=== PATIENT | female | born 1990 | race Two or more races ===

== ENCOUNTER 2017-12-04 08:00 | Outpatient (CLI) | payer MEDICAID ==
[2017-12-04 12:51] LABS: BASOPHILS % (AUTO) 0.7 %; EOSINOPHILS # (AUTO) 0.3 10^3/uL (0.0-0.7); HGB - HEMOGLOBIN 13.1 g/dL (12.0-16.0); LYMPHOCYTES # (AUTO) 2.5 10^3/uL (1.5-3.5); LYMPHOCYTES % (AUTO) 38.4 %; MEAN CORPUSCULAR HEMOGLOBIN 28.6 pg (27.0-31.0); MEAN CORPUSCULAR HGB CONC 33.5 g/dL (32.0-36.0); MEAN CORPUSCULAR VOLUME 85.6 fL (81.0-99.0); MEAN PLATELET VOLUME 8.6 fL (7.9-10.8); MONOCYTES # (AUTO) 0.4 10^3/uL (0.0-1.0); MONOCYTES % (AUTO) 6.9 %; NEUTROPHILS # (AUTO) 3.2 10^3/uL (1.5-6.6); PLT - PLATELET COUNT 298 10^3/uL (130-450); RED BLOOD COUNT 4.57 10^6/uL (4.20-5.40); RED CELL DISTRIBUTION WIDTH 14.2 % (12.0-15.0); WHITE BLOOD COUNT 6.5 x10^3/uL (4.8-10.8)
[2017-12-04 13:11] LABS: HCG,QUALITATIVE BLOOD NEGATIVE
[2017-12-04 14:12] LABS: ALBUMIN 4.5 g/dL (3.2-5.5); ALBUMIN/GLOBULIN RATIO 1.4 (1.0-2.2); ALKALINE PHOSPHATASE 49 IU/L (42-121); ALT ALANINE AMINOTRANSFERASE 19 IU/L (10-60); AST ASPARTATE AMINOTRANSFERASE 17 IU/L (10-42); BILIRUBIN,TOTAL 0.9 mg/dL (0.2-1.0); BUN - BLOOD UREA NITROGEN 10 mg/dL (6-20); CALCIUM 8.8 mg/dL (8.5-10.3); CARBON DIOXIDE - CO2 28 mmol/L (21-32); CHLORIDE 106 mmol/L (101-111); CHOL/HDL RATIO 1.8 (<4.4); CHOLESTEROL 107 mg/dL; CREATININE 0.7 mg/dL (0.4-1.0); GFR - MDRD 101 (>89); GLUCOSE 85 mg/dL (70-100); HDL CHOLESTEROL 58 mg/dL; LDL CHOLESTEROL,CALCULATED 39 mg/dL; LDL/HDL RATIO 0.7 (<4.4); SODIUM 136 mmol/L (135-145); TOTAL PROTEIN 7.8 g/dL (6.7-8.2); VLDL CHOLESTEROL 10 mg/dL
== END 2017-12-04 08:01 | disposition home or self-care (01) ==
LOC: LAB.N 08:00
PROVIDERS: ATTEND Nurse Practitioner Gerontology
DX: Z13.9 Encounter for screening, unspecified (principal); Z30.9 Encounter for contraceptive management, unspecified
CPT/HCPCS: 36415; 80053; 80061; 84443; 84703; 85025

== ENCOUNTER 2018-02-24 10:38 | Emergency (ER) | payer MEDICAID ==
[2018-02-24 11:05] VITALS: BP 140/92
[2018-02-24 11:30] LABS: BILIRUBIN,URINE NEGATIVE (NEGATIVE); GLUCOSE, URINE (UA) NEGATIVE (NEGATIVE); KETONES,URINE (UA) NEGATIVE (NEGATIVE); LEUKOCYTE ESTERASE, URINE TRACE (NEGATIVE); NITRITE,URINE NEGATIVE (NEGATIVE); OCCULT BLOOD,URINE LARGE (NEGATIVE); PH,URINE 6.5 PH (5.0-7.5); PROTEIN,URINE NEGATIVE (NEGATIVE); UROBILINOGEN,URINE 0.2 (NORMAL) E.U./dL (NORMAL)
[2018-02-24 11:31] LABS: CLARITY,URINE HAZY (CLEAR)
[2018-02-24 11:45] LABS: BACTERIA,URINE Moderate /HPF (None Seen); SQUAMOUS EPITHELIAL CELL,UR MOD Squamous (<= Few)
--- NOTE | 2018-02-24 11:47 | ED Physician Documentation ---
History of Present Illness - Stated complaint Stated Complaint: FEMALE - Chief complaint Chief Complaint: UTI - Additonal information Additional information: hx from pt dysuria today no fever no abd pain no NVD no vag bleed no dc no flank pain denies preg Review of Systems Constitutional: denies: Fever GI: denies: Abdominal Pain, Nausea, Vomiting : reports: Dysuria. denies: Discharge, Vaginal bleeding, Now EGA Musculoskeletal: denies: Back pain PD PAST MEDICAL HISTORY - Past Medical History Cardiovascular: None Respiratory: None Neuro: None Endocrine/Autoimmune: None GI: None PSYCHOLOGY ASSISTANT: None : None HEENT: None Psych: None Musculoskeletal: None Derm: None - Past Surgical History Past Surgical History: No - Present Medications Home Medications: Ambulatory Orders Medication Instructions Recorded Confirmed HYDROcod/ACETAM 5/325 [Vicodin 1 - 2 ea PO Q6H PRN #15 tablet 08/15/15 5/325] Ondansetron HCl [Zofran] 4 mg PO Q6HR PRN #14 tablet 08/15/15 Nitrofurantoin [Macrobid] 100 mg PO BID #10 capsule 02/24/18 Phenazopyridine [Pyridium] 100 mg PO Q8H PRN #9 tablet 02/24/18 - Allergies Allergies/Adverse Reactions: Allergies Allergy/AdvReac Type Severity Reaction Status Date / Time No Known Drug Allergies Allergy Verified 08/15/15 06:03 - Social History Does the pt smoke?: No Smoking Status: Never smoker Does the pt drink ETOH?: No Does the pt have substance abuse?: No - Immunizations Immunizations are current?: Yes - POLST Patient has POLST: No PD ED PE NORMAL - Vitals Vital signs reviewed: Yes - HEENT HEENT: Atraumatic - Neck Neck: Supple, no meningeal sign - Cardiac Cardiac: RRR - Respiratory Respiratory: No respiratory distress, Clear bilaterally - Abdomen Abdomen: Soft, Non tender - Back Back: No CVA TTP - Derm Derm: Normal color Results - Vitals Vitals: Vital Signs - 24 hr 02/24/18 11:00 Temperature 36.6 C Heart Rate 79 Respiratory 18 Rate Blood Pressure 140/92 H O2 Saturation 98 Oxygen O2 Source Room air - Labs Labs: Laboratory Tests 02/24/18 11:19 Urine Color YELLOW Urine Clarity HAZY Urine pH 6.5 Ur Specific [place] 1.025 Urine Protein NEGATIVE Urine Glucose (UA) NEGATIVE Urine Ketones NEGATIVE Urine Occult Blood LARGE H Urine Nitrite NEGATIVE Urine Bilirubin NEGATIVE Urine Urobilinogen 0.2 (NORMAL) Ur Leukocyte Esterase TRACE H Urine RBC 6-10 H Urine WBC 11-25 H Ur Squamous Epith Cells MOD Squamous H Urine Bacteria Moderate H Urine Culture Comments NOT INDICATED PD MEDICAL DECISION MAKING - ED course ED course: urine not a good clean catch but pt with classic sx no flank pain to suggest kidney stone with infection Departure - Departure Disposition: 01 Home, Self Care Clinical Impression: Urinary tract infection Qualifiers: Urinary tract infection type: acute cystitis Hematuria presence: with hematuria Qualified Code(s): N30.01 - Acute cystitis with hematuria Condition: Good Instructions: ED UTI Cystitis Female Follow-Up: Alka Ahn MD [Primary Care Provider] - (for a repeat urine test after completing antibiotics to be sure blood and infection have cleared) Prescriptions: Nitrofurantoin [Macrobid] 100 mg PO BID #10 capsule Phenazopyridine [Pyridium] 100 mg PO Q8H PRN #9 tablet PRN Reason: painful urination
== END 2018-02-24 12:37 | disposition home or self-care (01) ==
LOC: ED 10:38
DX: N30.01 Acute cystitis with hematuria (principal)
CPT/HCPCS: 81001; 87086; 99283

== ENCOUNTER 2019-04-24 16:13 | Inpatient (IN) | payer MEDICAID ==
--- NOTE | 2019-04-24 16:46 | ED Physician Documentation ---
PD HPI ABD PAIN - Stated complaint Stated Complaint: STOMACH PX, DIZZY - Chief complaint Chief Complaint: Abd Pain - History obtained from History obtained from: Patient - History of Present Illness Timing - onset: How many days ago (2) Timing - duration: Days (2) Timing - details: Abrupt onset Severity Comments: Patient could not rate on a scale of 1-10 Location: Periumbilical, RLQ Radiation: Left flank, Right flank. No: Lower back Improved by: No: Meds Associated symptoms: Fever (102.8 Friday 1AM), Nausea, Vomiting (Last emesis here in the department), Diarrhea. No: Hematochezia, Dysuria, Hematuria, Chest pain Similar symptoms before: Has not had sx before Recently seen: Not recently seen - Additional information Additional information: Is a 28-year-old woman who ate out on 2 nights ago and then became ill. She had a fever up to 102.8 that night and thought that she had food poisoning so she started taking some leftover Augmentin. She is been around anybody who is been sick. She is been getting intense periumbilical pain that woke crescendoed to a point that it is almost intolerable last for about a minute and then go away for about 5 to 10 minutes. It is radiating to her back bilaterally. She had some urinary frequency but has been drinking a lot of water. She tried taking ibuprofen for the pain without relief and took some nausea medicine that she had had prescribed in the past that did not help either. She has been vomiting for the past 2 days and unable to keep anything down. She is also had watery diarrhea without blood or mucus in it. She has had chills and fever up to 102.8 degrees. She denies use of alcohol. Patient has an IUD in it denies . Review of Systems Constitutional: reports: Fever, Chills Cardiac: denies: Chest pain / pressure, Palpitations Respiratory: denies: Dyspnea, Cough GI: reports: Abdominal Pain, Abdominal Swelling (Feels bloated), Nausea, Vomiting, Diarrhea. denies: Hematemesis, Bloody / black stool : reports: Irregular menses, Other (Has IUD). denies: Dysuria, Frequency Musculoskeletal: reports: Back pain (The flank bilaterally) Neurologic: denies: Syncope, LOC PD PAST MEDICAL HISTORY - Past Medical History Cardiovascular: None Respiratory: Asthma Endocrine/Autoimmune: None GI: None DOT COMPLIANCE MANAGER: None : None HEENT: None Psych: None Musculoskeletal: None Derm: None Other Past Medical History: DENIES OTHER - Past Surgical History Past Surgical History: Yes General: Cholecystectomy /DOT COMPLIANCE MANAGER: section - Present Medications Home Medications: Ambulatory Orders Medication Instructions Recorded Confirmed HYDROcod/ACETAM 5/325 [Vicodin 1 - 2 ea PO Q6H PRN #15 tablet 08/15/15 5/325] Ondansetron HCl [Zofran] 4 mg PO Q6HR PRN #14 tablet 08/15/15 Nitrofurantoin [Macrobid] 100 mg PO BID #10 capsule 02/24/18 Phenazopyridine [Pyridium] 100 mg PO Q8H PRN #9 tablet 02/24/18 - Allergies Allergies/Adverse Reactions: Allergies Allergy/AdvReac Type Severity Reaction Status Date / Time No Known Drug Allergies Allergy Verified 08/15/15 06:03 - Social History Does the pt smoke?: No Smoking Status: Never smoker Does the pt drink ETOH?: No Does the pt have substance abuse?: No - Immunizations Immunizations are current?: Yes - POLST Patient has POLST: No PD ED PE NORMAL - Vitals Vital signs reviewed: Yes - General General: Alert and oriented X 3, Well developed/nourished, Other (Patient appears uncomfortable. She keeps breathing very slow and closing her eyes concentrating on trying to get rid of the pain.) - HEENT HEENT: Atraumatic, Other (Mucous membranes are dry.) - Neck Neck: Supple, no meningeal sign, No adenopathy - Cardiac Cardiac: RRR, No murmur - Respiratory Respiratory: No respiratory distress - Abdomen Abdomen: Normal bowel sounds, Other (Diffusely tender with guarding in the right lower quadrant and in the periumbilical region. No palpable hernia.) - Female Female : Deferred - Back Back: No CVA TTP - Derm Derm: Normal color, Warm and dry, No rash - Extremities Extremities: No edema - Neuro Neuro: Alert and oriented X 3, ophthalmic surgical assistant 2-12 intact, No motor deficit, No sensory deficit, Normal speech - Psych Psych: Normal mood, Normal affect Results - Vitals Vitals: Vital Signs - 24 hr 04/24/19 04/24/19 04/24/19 16:25 17:45 18:46 Temperature 38.1 C H 37.9 C H Heart Rate 102 H 95 97 Respiratory 16 16 16 Rate Blood Pressure 123/87 H 105/75 112/74 O2 Saturation 98 100 98 04/24/19 19:11 Temperature 37.5 C Heart Rate 93 Respiratory 22 Rate Blood Pressure 108/69 O2 Saturation 97 Oxygen O2 Source Room air - Labs Labs: Laboratory Tests 04/24/19 04/24/19 04/24/19 16:30 17:00 17:00 WBC 5.9 RBC 4.60 Hgb 13.7 Hct 40.3 MCV 87.6 MCH 29.7 MCHC 33.9 RDW 13.1 Plt Count 277 MPV 8.0 Neut # (Auto) 4.7 Lymph # (Auto) 1.0 L Hard[place] # (Auto) 0.3 Eos # (Auto) 0.0 Baso # (Auto) 0.0 Absolute Nucleated RBC 0.00 Nucleated RBC % 0.1 Sodium 137 Potassium 3.4 L Chloride 102 Carbon Dioxide 22 Anion Gap 13.0 BUN 7 Creatinine 0.8 Estimated GFR (MDRD) 86 L Glucose 96 Calcium 7.9 L Total Bilirubin 0.8 AST 27 ALT 22 Alkaline Phosphatase 32 L Total Protein 7.1 Albumin 4.0 Globulin 3.1 Albumin/Globulin Ratio 1.3 Lipase 27 Urine Color YELLOW Urine Clarity CLEAR Urine pH 6.0 Ur Specific [place] 1.010 Urine Protein NEGATIVE Urine Glucose (UA) NEGATIVE Urine Ketones NEGATIVE Urine Occult Blood NEGATIVE Urine Nitrite NEGATIVE Urine Bilirubin NEGATIVE Urine Urobilinogen 1 (NORMAL) Ur Leukocyte Esterase NEGATIVE Ur Microscopic Review NOT INDICATED Urine Culture Comments NOT INDICATED Urine HCG, Qual NEGATIVE - Rads (name of study) abd CT Radiology: See rad report (No evidence of surgical abdomen or appendicitis.) PD MEDICAL DECISION MAKING - ED course Complexity details: re-evaluated patient, d/w patient, d/w family, d/w acquisition consultant ED course: Patient required 2 mg of Dilaudid and 4 of Zofran still complaining that she had 3 out of 10 pain and was having discomfort in the right lower quadrant. Her CT is not impressive. She has a normal white blood cell count. No evidence of a urinary tract infection. Discussed with the hospitalist and she has agreed to accept the patient for overnight observation for the fever and abdominal pain. The patient is in agreement with the plan. Departure - Departure Disposition: ED Place in Observation Clinical Impression: Fever Qualifiers: Fever type: unspecified Qualified Code(s): R50.9 - Fever, unspecified Abdominal pain Qualifiers: Abdominal location: right lower quadrant Qualified Code(s): R10.31 - Right lower quadrant pain Discharge Date/Time: 04/24/19 20:45
[2019-04-24] MEDS ORDERED: ONDANSETRON 4 MG/2 ML VIAL IVP STA (17:01)
[2019-04-24] MEDS ORDERED: SODIUM CHLORIDE 0.9% 1,000 ML IV ONE (17:01)
[2019-04-24] MEDS ORDERED: HYDROmorphone 1 MG/ML CARPUJECT IVP STA ×2 (17:01→18:39)
[2019-04-24 17:30] LABS: BILIRUBIN,URINE NEGATIVE (NEGATIVE); GLUCOSE, URINE (UA) NEGATIVE (NEGATIVE); KETONES,URINE (UA) NEGATIVE (NEGATIVE); LEUKOCYTE ESTERASE, URINE NEGATIVE (NEGATIVE); NITRITE,URINE NEGATIVE (NEGATIVE); OCCULT BLOOD,URINE NEGATIVE (NEGATIVE); PROTEIN,URINE NEGATIVE (NEGATIVE); UROBILINOGEN,URINE 1 (NORMAL) E.U./dL (NORMAL)
[2019-04-24 17:30] LABS: BASOPHILS % (AUTO) 0.3 %; EOSINOPHILS % (AUTO) 0.4 %; HGB - HEMOGLOBIN 13.7 g/dL (12.0-16.0); LYMPHOCYTES % (AUTO) 16.5 %; MEAN CORPUSCULAR HEMOGLOBIN 29.7 pg (27.0-31.0); MEAN CORPUSCULAR HGB CONC 33.9 g/dL (32.0-36.0); MEAN CORPUSCULAR VOLUME 87.6 fL (81.0-99.0); MONOCYTES # (AUTO) 0.3 10^3/uL (0.0-1.0); MONOCYTES % (AUTO) 4.4 %; NEUTROPHILS # (AUTO) 4.7 10^3/uL (1.5-6.6); NEUTROPHILS % (AUTO) 78.4 %; PLT - PLATELET COUNT 277 10^3/uL (130-450); RED CELL DISTRIBUTION WIDTH 13.1 % (12.0-15.0); WHITE BLOOD COUNT 5.9 x10^3/uL (4.8-10.8)
[2019-04-24 17:31] LABS: CLARITY,URINE CLEAR (CLEAR)
[2019-04-24 17:33] LABS: HCG UR QUAL NEGATIVE
[2019-04-24 17:41] LABS: ALBUMIN/GLOBULIN RATIO 1.3 (1.0-2.2); BILIRUBIN,TOTAL 0.8 mg/dL (0.2-1.0); CALCIUM 7.9 mg/dL (8.5-10.3); CREATININE 0.8 mg/dL (0.4-1.0); TOTAL PROTEIN 7.1 g/dL (6.7-8.2)
[2019-04-24] MEDS ORDERED: IOVERSOL 320 100 ML VIAL IVP ONE (17:51)
--- NOTE | 2019-04-24 18:53 | CT Report ---
Reason: Periumbilical pain with fever Procedure Date: 04/24/2019 Accession Number: [id number] / [id number] Procedure: CT - Abdomen/Pelvis W CPT Code: FULL RESULT: EXAM: CT ABDOMEN AND PELVIS EXAM DATE: 04/24/2019 06:14 PM. CLINICAL HISTORY: Periumbilical pain with fever. COMPARISONS: None. TECHNIQUE: Routine helical CT imaging was performed through the abdomen and pelvis. IV contrast: 90 cc Optiray 320. Enteric contrast: No. Reconstructions: Coronal and sagittal. In accordance with CT protocol optimization, one or more of the following dose reduction techniques were utilized for this exam: automated exposure control, adjustment of mA and/or KV based on patient size, or use of iterative reconstructive technique. FINDINGS: ABDOMEN: Lung Bases: Incompletely included lower lungs are grossly clear. Heart size is within normal limits. No basilar effusions. Liver: Unremarkable. Spleen: Unremarkable. Pancreas: Unremarkable. Gallbladder/Bile Ducts: Status post cholecystectomy. Biliary tree is normal caliber. Adrenal Glands: Unremarkable. Kidneys: No mass, calculi, or hydronephrosis. Peritoneum/Mesentery/Bowel: No free fluid, free air, or collection. No intestinal obstruction or inflammation. The appendix is within normal limits. Lymph nodes: No mesenteric, periportal, or retroperitoneal lymphadenopathy. Vasculature: Abdominal aorta is nonaneurysmal. Portal vein is patent. Hepatic veins are patent. PELVIS: The bladder is unremarkable for the degree of distention. IUD present within the uterus. No obvious abnormally enlarged adnexal abnormalities. No pelvic lymphadenopathy. Bones: No suspicious osseous lesions. IMPRESSION: No acute abnormalities. Normal appendix. [facility]
[2019-04-24] MEDS ORDERED: oxyCODONE 5 MG TABLET PO PRN (20:08)
[2019-04-24] MEDS ORDERED: ONDANSETRON ODT 4 MG TABLET TL PRN (20:08)
[2019-04-24] MEDS ORDERED: ONDANSETRON 4 MG/2 ML VIAL IVP PRN (20:08)
[2019-04-24] MEDS ORDERED: PROCHLORPERAZINE 10 MG/2 ML VIAL IVP PRN (20:08)
--- NOTE | 2019-04-24 20:17 | HISTORY & PHYSICAL EXAMINATION ---
History of Present Illness - Admitted From Admitted From:: ER/Home - History Obtained From Records Reviewed: [facility] History obtained from: patient, , ER MD Exam Limitations: pain and her nausea from IV opiates - History of Present Illness HPI Comment/Other: Morbidly obese female who regards herself as healthy and started having abdominal pain 2 days ago. It was sudden in onset, located between the umbilicus and the right lower quadrant. She describes it as a sensation of a short tube that is stabbing from the inside deep in her belly. She demonstrates by using her thumb and index finger to show me the length of the tube and its about 7 cm long. Pain is present only when you palpate. It is made worse by moving, she prefers to just lay on her back and be still. She has no appetite. When she tries to have flatulence or a bowel movement the pain in this area already described becomes intensely worse. It is waxing and waning. She has been having loose stools. No blood in the stool. She is started vomiting with it yesterday. And started having fevers in the middle of the night on Friday night. She denies any blood in urine, urgency, frequency. She is never had any abdominal surgery. She has had no recent travel, and none of her children are sick. While in the emergency room she received IV fluids as well as Dilaudid. She says that Dilaudid is terrible. It may take with her pain but it makes her so lightheaded, so confused, she can even remember how many brothers and sister she has. She would prefer not to get any opiates. Especially IV opiates. In the emergency room she was evaluated by Dr. Gonzaels. Temperature was 38 1 pulse was 102 blood pressure 123/87 and she was saturating normally on room air. Physical exam was positive for the right lower quadrant and periumbilical pain with deep palpation. She has bowel sounds. CT the abdomen is completely normal, white cell count is normal. Urinalysis is pristine. Urine test is negative. She is now brought in for observation. In the emergency room she is been able to keep ice chips down, and is trying to eat a cracker before she goes to [facility]. History - Past Medical History Cardiovascular: reports: None Respiratory: reports: Asthma Neuro: reports: Headaches (CT of head negative in 2015, here.) Endocrine/Autoimmune: reports: None GI: reports: None LATHER APPRENTICE: reports: Other () : reports: None HEENT: reports: None Psych: reports: None Musculoskeletal: reports: Other (Osteomyelitis/Ed[place] Abcess 2002 in [place]. Distal tibia ) Derm: reports: None MRSA Hx?: No - Past Surgical History General: reports: Cholecystectomy /LATHER APPRENTICE: reports: section - Family & Social History Family History Comment/Other: Father at age 50 of an MA. Mom is healthy in her early 60s. 3 sisters and one brother have mental illness, depression and anxiety. But no blood pressure, cancer, heart attack, stroke, diabetes or thyroid disease. Her 2 children are healthy at 2 years and 6 years. She is still breast-feeding the 2-year-old Living arrangement: At home Living Situation: With spouse/s.o., With family Social History Notes: She is from [place]. 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 She tried smoking once when she was very young and hated it. Same for sipping alcohol. So she does not drink or smoke. She moved to the [place] with her because his family comes from here and they have been here for a few years now. There is no history of recreational substance abuse. - Substance History Use: Uses substance without health or social issues: NONE Abuse: Recurrent use of substance despite neg consequences: NONE Dependence: Experiences withdrawal or developed tolerances: NONE - POLST Patient has POLST: No POLST Status: Full Code Meds/Allgy - Home Medications Home Medications: Ambulatory Orders Medication Instructions Recorded Confirmed HYDROcod/ACETAM 5/325 [Vicodin 1 - 2 ea PO Q6H PRN #15 tablet 08/15/15 5/325] Ondansetron HCl [Zofran] 4 mg PO Q6HR PRN #14 tablet 08/15/15 Nitrofurantoin [Macrobid] 100 mg PO BID #10 capsule 02/24/18 Phenazopyridine [Pyridium] 100 mg PO Q8H PRN #9 tablet 02/24/18 - Allergies Allergies/Adverse Reactions: Allergies Allergy/AdvReac Type Severity Reaction Status Date / Time No Known Drug Allergies Allergy Verified 08/15/15 06:03 Review of Systems - Constitutional Constitutional: reports: Fatigue, Fever, Chills, Malaise, Weakness, Poor appetite - Eyes Eyes: denies: Pain, Irritation, Amaurosis, Blurred vision, Spots in vision, Field loss - Ears, Nose & Throat Ears, Nose & Throat: denies: Ear pain, Hearing aids, Tinnitus, Vertigo, Postnasal drainage, Sore throat, Hoarseness - Cardiovascular Cariovascular: reports: Lightheadedness. denies: Irregular heart rate, Palpitations, Chest pain, Edema, Syncope, Exertional dyspnea, Decr. exercise tolerance - Respiratory Respiratory: denies: Cough, Sputum production, Wheezing, Snoring, Orthopnea, SOB at rest, SOB with exertion - Gastrointestinal Gastrointestinal: reports: Abdominal pain, Constipation, Diarrhea, Nausea, Vomiting, Poor appetite. denies: Rectal bleeding, Bile emesis, Ehsan blood emesis, Coffee grounds emesis, Reflux/heartburn, Bloating - Genitourinary Genitourinary: reports: Flank pain. denies: Dysuria, Frequency, Urgency, Hematuria, Incontinence, Nocturia, Urethral discharge - Musculoskeletal Musculoskeletal: denies: Muscle pain, Back pain, Muscle aches, Stiffness, Muscle weakness, Gout, Joint pain - Integumentary Integumentary: denies: Rash, Pruritis, Lesions, Dryness - Neurological Neurological: reports: Dizziness. denies: General weakness, Focal weakness, Headache, Numbness, Memory problems, Pre-existing deficit, Abnormal gait - Psychiatric Psychiatric: denies: Depression, Anxiety, Suicidal, Delusions - Endocrine Endocrine: denies: Polyuria, Polydypsia, Polyphagia, Intolerance to cold - Hematologic/Lymphatic Hematologic/Lymphatic: denies: Anemia, Bruising, Petechiae Prior Level of Functionality: Independent with activities of daily living. 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 There are no limitations to mobility or cardiovascular endurance. She does not use any durable medical equipment. Exam - Vital Signs Vital Signs: Vital Signs x48h Temp Pulse Resp BP Pulse Ox 04/24/19 19:11 37.5 C 93 22 108/69 97 04/24/19 18:46 97 16 112/74 98 04/24/19 17:45 37.9 C H 95 16 105/75 100 04/24/19 16:25 38.1 C H 102 H 16 123/87 H 98 - Physical Exam General Appearance: positive: Moderate distress (From the Dilaudid. Her head is spinning, the Dilaudid is made her nausea worse, she feels sedated and confused), Anxious Eyes Bilateral: positive: PERRL ENT: positive: Pharynx nml Neck: positive: No JVD. negative: Stiff neck, Carotid bruit Respiratory: negative: Chest non-tender, Wheezes, Rales, Rhonchi Cardiovascular: negative: Regular rate & rhythm, Systolic murmur, Gallop/S4, Friction rub Peripheral Pulses: positive: 1+ Abdomen: positive: Other (Tender between the umbilicus and the right lower quadrant. Pain is only present with deep palpation. I am not feeling any abdominal wall defects. I am not feeling her hernia. She is abdominal history. Hypoactive bowel sounds. No rebound or guarding.). negative: No distention, Hepatomegaly, Splenomegaly Skin: positive: Color nml, No rash, Warm, Dry Extremities: positive: Non-tender, No pedal edema Neurologic/Psychiatric: positive: Oriented x3, CN's nml (2-12), Motor nml, Sensation nml Reflexes: Bicep (R): 1+, Bicep (L): 1+, Knee (R): 1+, Knee (L): 1+, Ankle (R): 0, Ankle (L): 0 Babinski Reflex: Right: Down, Left: Down Conclusion/Plan - Problem List (1) Right lower quadrant abdominal pain Conclusion/Plan: Sudden onset, present for 2 days. Made worse by defecation and flatus. Intermittent diarrhea as well as nausea and vomiting associated with it. No blood in stool. White cell count is normal. CT the abdomen is normal. Her only abnormality with her abdominal pain is elevated temperature.We will start of appendicitis, ectopic , kidney stone, colitis. None of these seem to be the cause of her pain. Plan: Observation status Abdominal exam every shift Stool for culture and sensitivity, ova parasite Avoid IV opiates but will give her oxycodone p.o. as needed IV Tylenol and IV Toradol for pain management Repeat CBC and BMP in the morning. (2) Hypokalemia Conclusion/Plan: Because of nausea and vomiting, supplement with 20 mEq of a K rider - Lab Results Lab results reviewed: Yes Fish Bones: 04/24/19 17:00 04/24/19 17:00 - Diagnostic Imaging Results Diagnostic Imaging Results: positive: Final report reviewed Diagnostic Imaging Results Comments: EXAM: [id number] CT/ABPEW ([id number]) Reason: Periumbilical pain with fever Procedure Date: 04/24/2019 Accession Number: [id number] / [id number] Procedure: CT - Abdomen/Pelvis W CPT Code: FULL RESULT: EXAM: CT ABDOMEN AND PELVIS EXAM DATE: 04/24/2019 06:14 PM. CLINICAL HISTORY: Periumbilical pain with fever. COMPARISONS: None. TECHNIQUE: Routine helical CT imaging was performed through the abdomen and pelvis. IV contrast: 90 cc Optiray 320. Enteric contrast: No. Reconstructions: Coronal and sagittal. In accordance with CT protocol optimization, one or more of the following dose reduction techniques were utilized for this exam: automated exposure control, adjustment of mA and/or KV based on patient size, or use of iterative reconstructive technique. FINDINGS: ABDOMEN: Lung Bases: Incompletely included lower lungs are grossly clear. Heart size is within normal limits. No basilar effusions. Liver: Unremarkable. Spleen: Unremarkable. Pancreas: Unremarkable. Gallbladder/Bile Ducts: Status post cholecystectomy. Biliary tree is normal caliber. Adrenal Glands: Unremarkable. Kidneys: No mass, calculi, or hydronephrosis. Peritoneum/Mesentery/Bowel: No free fluid, free air, or collection. No intestinal obstruction or inflammation. The appendix is within normal limits. Lymph nodes: No mesenteric, periportal, or retroperitoneal lymphadenopathy. Vasculature: Abdominal aorta is nonaneurysmal. Portal vein is patent. Hepatic veins are patent. PELVIS: The bladder is unremarkable for the degree of distention. IUD present within the uterus. No obvious abnormally enlarged adnexal abnormalities. No pelvic lymphadenopathy. Bones: No suspicious osseous lesions. IMPRESSION: No acute abnormalities. Normal appendix. [facility] Core Measures - Anticipated LOS I expect patient to be DC'd or transferred within 96 hours.: Yes - DVT/VTE - Prophylaxis VTE/DVT Device ordered at admit?: Yes
[2019-04-24] MEDS: ACETAMINOPHEN 1,000 MG/100 ML 100 ML IV PRN (21:39)
[2019-04-24] MEDS: PANTOPRAZOLE 40 MG VIAL IVP SCH (22:04)
[2019-04-24] MEDS: SODIUM CHLORIDE 0.9% 1,000 ML IV SCH (22:10)
[2019-04-24] MEDS: POTASSIUM CHLOR 10 MEQ/100 ML 10 MEQ/100 ML BAG IV SCH ×2 (22:10→23:05)
[2019-04-24] MEDS: SODIUM CHLORIDE FLUSH 0.9% 10 ML SYRINGE IVP PRN (23:12)
[2019-04-25] MEDS: SODIUM CHLORIDE FLUSH 0.9% 10 ML SYRINGE IVP SCH ×3 (00:01→17:22)
[2019-04-25] MEDS: POTASSIUM CHLOR 10 MEQ/100 ML 10 MEQ/100 ML BAG IV SCH ×4 (00:35→11:54)
[2019-04-25] MEDS: KETOROLAC 30 MG/ML VIAL IVP PRN ×4 (02:52→21:02)
[2019-04-25 05:45] LABS: BASOPHILS % (AUTO) 0.5 %; EOSINOPHILS % (AUTO) 0.6 %; HGB - HEMOGLOBIN 11.9 g/dL (12.0-16.0); LYMPHOCYTES # (AUTO) 1.4 10^3/uL (1.5-3.5); LYMPHOCYTES % (AUTO) 34.2 %; MEAN CORPUSCULAR HEMOGLOBIN 29.2 pg (27.0-31.0); MEAN CORPUSCULAR HGB CONC 32.8 g/dL (32.0-36.0); MEAN PLATELET VOLUME 7.7 fL (7.9-10.8); MONOCYTES # (AUTO) 0.3 10^3/uL (0.0-1.0); MONOCYTES % (AUTO) 7.8 %; NEUTROPHILS # (AUTO) 2.3 10^3/uL (1.5-6.6); NEUTROPHILS % (AUTO) 56.9 %; PLT - PLATELET COUNT 233 10^3/uL (130-450); RED BLOOD COUNT 4.08 10^6/uL (4.20-5.40); RED CELL DISTRIBUTION WIDTH 13.3 % (12.0-15.0)
[2019-04-25 05:52] LABS: CALCIUM 6.8 mg/dL (8.5-10.3); CREATININE 0.6 mg/dL (0.4-1.0)
[2019-04-25] MEDS: SODIUM CHLORIDE FLUSH 0.9% 10 ML SYRINGE IVP PRN (06:17)
[2019-04-25] MEDS: PANTOPRAZOLE 40 MG VIAL IVP SCH (06:17)
[2019-04-25] MEDS: SODIUM CHLORIDE 0.9% 1,000 ML IV SCH ×2 (06:18→16:04)
[2019-04-25] MEDS ORDERED: POTASSIUM CHLOR 10 MEQ/100 ML 10 MEQ/100 ML BAG IV SCH ×2 (08:00)
[2019-04-25] MEDS ORDERED: POTASSIUM CHLORIDE 20 MEQ TABLET PO ONE (08:09)
[2019-04-25] MEDS: SIMETHICONE CHEW 80 MG TABLET PO SCH ×4 (08:26→21:02)
[2019-04-25] MEDS: POLYETHYLENE GLYCOL 3350 17 GM PACKET PO SCH (08:35)
[2019-04-25] MEDS ORDERED: DICYCLOMINE 10 MG CAPSULE PO PRN (09:07)
[2019-04-25] MEDS: ACETAMINOPHEN 325 MG TABLET PO PRN (10:37)
--- NOTE | 2019-04-25 11:12 | PROVIDER PROGRESS NOTE ---
Subjective - Prog Note Date Prog Note Date: 04/25/19 - Subjective Pt reports feeling: No change Subjective: pt report she still had 3/10 in pain scale on her abdominal pain, pain still is mainly located right lower quadrant. pt report she still had three times loose/diarrhea stool. pt denies fever, chill, cough, shortness of breath, chest pain. Current Medications - Current Medications Current Medications: Active Medications Acetaminophen (Tylenol) 650 mg PO Q4HR PRN PRN Reason: Pain 1 to 4 Last Admin: 04/25/19 10:37 Dose: 650 mg Dicyclomine HCl (Bentyl) 10 mg PO QID PRN PRN Reason: Cramp Last Admin: 04/25/19 09:18 Dose: 10 mg Acetaminophen (Ofirmev) 100 mls @ 400 mls/hr IV Q6HR PRN PRN Reason: PAIN Last Infusion: 04/24/19 21:55 Dose: Infused Sodium Chloride (Normal Saline 0.9%) 1,000 mls @ 100 mls/hr IV .Q10H [facility] Last Admin: 04/25/19 06:18 Dose: 100 mls/hr Potassium Chloride (Potassium Chloride) 10 meq in 100 mls @ 50 mls/hr IV Q2H [place] Stop: 04/25/19 14:59 Last Admin: 04/25/19 10:09 Dose: 50 mls/hr Ketorolac Tromethamine (Toradol Inj (30mg)) 30 mg IVP Q6HR PRN PRN Reason: PAIN Stop: 04/29/19 20:10 Last Admin: 04/25/19 08:26 Dose: 30 mg Ondansetron HCl (Zofran Inj) 4 mg IVP Q6HR PRN PRN Reason: Nausea / Vomiting Ondansetron HCl (Zofran Odt) 4 mg TL Q6HR PRN PRN Reason: Nausea / Vomiting Oxycodone HCl (Roxicodone) 5 mg PO Q4HR PRN PRN Reason: Pain 5 to 7 Pantoprazole Sodium (Protonix) 40 mg IVP QDAC [facility] Last Admin: 04/25/19 06:17 Dose: 40 mg Polyethylene Glycol (Miralax) 17 gm PO DAILY [facility] Last Admin: 04/25/19 08:35 Dose: 17 gm Prochlorperazine Edisylate (Compazine Inj) 10 mg IVP Q6HR PRN PRN Reason: Nausea / Vomiting Simethicone (Mylicon) 80 mg PO 0900,1300,1800,2100 [facility] Last Admin: 04/25/19 08:26 Dose: 80 mg Sodium Chloride (Normal Saline Flush 0.9%) 10 ml IVP PRN PRN PRN Reason: NEEDED PER PROVIDER ORDERS Last Admin: 04/25/19 06:17 Dose: 10 ml Sodium Chloride (Normal Saline Flush 0.9%) 10 ml IVP 0100,0900,1700 [facility] Last Admin: 04/25/19 08:29 Dose: Not Given Vancomycin HCl (Vancocin) 125 mg PO QID [facility] Ibuprofen [Advil] 800 mg PO DAILY PRN 04/25/19 Objective - Vital Signs/Intake & Output Reviewed Vital Signs: Yes Vital Signs: Vital Signs x48h Temp Pulse Pulse Resp BP Pulse Ox 04/25/19 08:00 36.9 C 89 18 113/79 98 04/25/19 04:57 36.7 C 85 18 97 Intake & Output: Intake & Output 04/22/19 04/23/19 04/24/19 04/25/19 23:59 23:59 23:59 23:59 Intake Total 1524.148 3884.666 Output Total 1000 Balance 1291.667 911.666 - Objective General Appearance: positive: No acute distress, Alert. negative: Lethargic Eyes Bilateral: positive: Normal inspection, PERRL, No lid inflammation, Conjunctivae nml ENT: positive: ENT inspection nml, Pharynx nml, No signs of dehydration. negative: Purulent nasal drainage, Pharyngeal erythema, Oral lesions Neck: positive: Nml inspection, Thyroid nml, No JVD, Trachea midline. negative: Thyromegaly, Lymphadenopathy (R), Lymphadenopathy (L), Stiff neck, Swelling/bruising, Tracheal deviation Respiratory: positive: Chest non-tender, No respiratory distress, Breath sounds nml. negative: Wheezes, Rales, Rhonchi Cardiovascular: positive: Regular rate & rhythm, No murmur, No gallop. negative: Irregularly irregular, Extrasystoles, Tachycardia, Bradycardia, JVD present, Systolic murmur, Diastolic murmur Peripheral Pulses: 2+ Radial (R), 2+ Radial (L), 2+ Dorsalis pedis (R), 2+ Dorsalis pedis (L) Abdomen: positive: No organomegaly, Nml bowel sounds, No distention, Tenderness. negative: Guarding, Rebound Back: positive: Nml inspection. negative: CVA tenderness (R), CVA tenderness (L) Skin: positive: Color nml, No rash, Warm, Dry. negative: Cyanosis, Diaphoresis, Pallor, Skin rash Extremities: positive: Non-tender, Full ROM, Nml appearance. negative: Calf tenderness, Joint swelling, Arely's sign/cords Neurologic/Psychiatric: positive: Oriented x3, Motor nml, Sensation nml, Mood/affect nml. negative: Weakness, Sensory loss, Facial droop, Slurred/abnml speech, Depressed mood/affect - Lab Results Fish Bones: 04/25/19 05:30 04/25/19 05:30 Other Labs: Lab Results x24hrs 04/25/19 04/25/19 04/25/19 Range/Units 08:00 08:00 08:00 WBC (4.8-10.8) x10^3/uL RBC (4.20-5.40) 10^6/uL Hgb (12.0-16.0) g/dL Hct (37.0-47.0) % MCV (81.0-99.0) fL MCH (27.0-31.0) pg MCHC (32.0-36.0) g/dL RDW (12.0-15.0) % Plt Count (130-450) 10^3/uL MPV (7.9-10.8) fL Neut # (Auto) (1.5-6.6) 10^3/uL Lymph # (Auto) (1.5-3.5) 10^3/uL [place] # (Auto) (0.0-1.0) 10^3/uL Eos # (Auto) (0.0-0.7) 10^3/uL Baso # (Auto) (0.0-0.1) 10^3/uL Absolute Nucleated RBC x10^3/uL Nucleated RBC % /100WBC Sodium (135-145) mmol/L Potassium (3.5-5.0) mmol/L Chloride (101-111) mmol/L Carbon Dioxide (21-32) mmol/L Anion Gap (6-13) BUN (6-20) mg/dL Creatinine (0.4-1.0) mg/dL Estimated GFR (MDRD) (>89) Glucose (70-100) mg/dL Calcium (8.5-10.3) mg/dL Total Bilirubin (0.2-1.0) mg/dL AST (10-42) IU/L ALT (10-60) IU/L Alkaline Phosphatase (42-121) IU/L Total Protein (6.7-8.2) g/dL Albumin (3.2-5.5) g/dL Globulin (2.1-4.2) g/dL Albumin/Globulin Ratio (1.0-2.2) Lipase (22-51) U/L Urine Color Urine Clarity (CLEAR) Urine pH (5.0-7.5) PH Ur Specific [place] (1.002-1.030) Urine Protein (NEGATIVE) mg/dL Urine Glucose (UA) (NEGATIVE) mg/dL Urine Ketones (NEGATIVE) mg/dL Urine Occult Blood (NEGATIVE) Urine Nitrite (NEGATIVE) Urine Bilirubin (NEGATIVE) Urine Urobilinogen (NORMAL) E.U./dL Ur Leukocyte Esterase (NEGATIVE) Ur Microscopic Review Urine Culture Comments Urine HCG, Qual Stl Occult Blood (IFOB) POSITIVE A (NEGATIVE) Stool Leukocytes, Qual POSITIVE (Negative) C. difficile Tox B Gene POSITIVE A* (NEGATIVE) 04/25/19 04/25/19 04/24/19 Range/Units 05:30 05:30 17:00 WBC 4.0 L (4.8-10.8) x10^3/uL RBC 4.08 L (4.20-5.40) 10^6/uL Hgb 11.9 L (12.0-16.0) g/dL Hct 36.3 L (37.0-47.0) % MCV 89.0 (81.0-99.0) fL MCH 29.2 (27.0-31.0) pg MCHC 32.8 (32.0-36.0) g/dL RDW 13.3 (12.0-15.0) % Plt Count 233 (130-450) 10^3/uL MPV 7.7 L (7.9-10.8) fL Neut # (Auto) 2.3 (1.5-6.6) 10^3/uL Lymph # (Auto) 1.4 L (1.5-3.5) 10^3/uL [place] # (Auto) 0.3 (0.0-1.0) 10^3/uL Eos # (Auto) 0.0 (0.0-0.7) 10^3/uL Baso # (Auto) 0.0 (0.0-0.1) 10^3/uL Absolute Nucleated RBC 0.01 x10^3/uL Nucleated RBC % 0.1 /100WBC Sodium 141 137 (135-145) mmol/L Potassium 3.0 L 3.4 L (3.5-5.0) mmol/L Chloride 108 102 (101-111) mmol/L Carbon Dioxide 24 22 (21-32) mmol/L Anion Gap 9.0 13.0 (6-13) BUN 5 L 7 (6-20) mg/dL Creatinine 0.6 0.8 (0.4-1.0) mg/dL Estimated GFR (MDRD) 120 86 L (>89) Glucose 111 H 96 (70-100) mg/dL Calcium 6.8 L 7.9 L (8.5-10.3) mg/dL Total Bilirubin 0.8 (0.2-1.0) mg/dL AST 27 (10-42) IU/L ALT 22 (10-60) IU/L Alkaline Phosphatase 32 L (42-121) IU/L Total Protein 7.1 (6.7-8.2) g/dL Albumin 4.0 (3.2-5.5) g/dL Globulin 3.1 (2.1-4.2) g/dL Albumin/Globulin Ratio 1.3 (1.0-2.2) Lipase 27 (22-51) U/L Urine Color Urine Clarity (CLEAR) Urine pH (5.0-7.5) PH Ur Specific [place] (1.002-1.030) Urine Protein (NEGATIVE) mg/dL Urine Glucose (UA) (NEGATIVE) mg/dL Urine Ketones (NEGATIVE) mg/dL Urine Occult Blood (NEGATIVE) Urine Nitrite (NEGATIVE) Urine Bilirubin (NEGATIVE) Urine Urobilinogen (NORMAL) E.U./dL Ur Leukocyte Esterase (NEGATIVE) Ur Microscopic Review Urine Culture Comments Urine HCG, Qual Stl Occult Blood (IFOB) (NEGATIVE) Stool Leukocytes, Qual (Negative) C. difficile Tox B Gene (NEGATIVE) 04/24/19 04/24/19 Range/Units 17:00 16:30 WBC 5.9 (4.8-10.8) x10^3/uL RBC 4.60 (4.20-5.40) 10^6/uL Hgb 13.7 (12.0-16.0) g/dL Hct 40.3 (37.0-47.0) % MCV 87.6 (81.0-99.0) fL MCH 29.7 (27.0-31.0) pg MCHC 33.9 (32.0-36.0) g/dL RDW 13.1 (12.0-15.0) % Plt Count 277 (130-450) 10^3/uL MPV 8.0 (7.9-10.8) fL Neut # (Auto) 4.7 (1.5-6.6) 10^3/uL Lymph # (Auto) 1.0 L (1.5-3.5) 10^3/uL [place] # (Auto) 0.3 (0.0-1.0) 10^3/uL Eos # (Auto) 0.0 (0.0-0.7) 10^3/uL Baso # (Auto) 0.0 (0.0-0.1) 10^3/uL Absolute Nucleated RBC 0.00 x10^3/uL Nucleated RBC % 0.1 /100WBC Sodium (135-145) mmol/L Potassium (3.5-5.0) mmol/L Chloride (101-111) mmol/L Carbon Dioxide (21-32) mmol/L Anion Gap (6-13) BUN (6-20) mg/dL Creatinine (0.4-1.0) mg/dL Estimated GFR (MDRD) (>89) Glucose (70-100) mg/dL Calcium (8.5-10.3) mg/dL Total Bilirubin (0.2-1.0) mg/dL AST (10-42) IU/L ALT (10-60) IU/L Alkaline Phosphatase (42-121) IU/L Total Protein (6.7-8.2) g/dL Albumin (3.2-5.5) g/dL Globulin (2.1-4.2) g/dL Albumin/Globulin Ratio (1.0-2.2) Lipase (22-51) U/L Urine Color YELLOW Urine Clarity CLEAR (CLEAR) Urine pH 6.0 (5.0-7.5) PH Ur Specific [place] 1.010 (1.002-1.030) Urine Protein NEGATIVE (NEGATIVE) mg/dL Urine Glucose (UA) NEGATIVE (NEGATIVE) mg/dL Urine Ketones NEGATIVE (NEGATIVE) mg/dL Urine Occult Blood NEGATIVE (NEGATIVE) Urine Nitrite NEGATIVE (NEGATIVE) Urine Bilirubin NEGATIVE (NEGATIVE) Urine Urobilinogen 1 (NORMAL) (NORMAL) E.U./dL Ur Leukocyte Esterase NEGATIVE (NEGATIVE) Ur Microscopic Review NOT INDICATED Urine Culture Comments NOT INDICATED Urine HCG, Qual NEGATIVE Stl Occult Blood (IFOB) (NEGATIVE) Stool Leukocytes, Qual (Negative) C. difficile Tox B Gene (NEGATIVE) ABX Reporting Has patient been on IV antibiotics over the past 48 hours?: Yes Sepsis Event Note (H) - Evaluation Current Stage of Sepsis: Ruled out Assessment/Plan - Problem List (1) Abdominal pain Impression: (1) Right lower quadrant abdominal pain pt still present abdominal pain at right lower quadrant. CT of abdomen is unremarkable. But now C.diff test is positive and stool culture reveals positive WBC and positive Occult. The pain may be caused by C.diff colitis treat with PO vancomycin continue IVF of NS for hydration continue pain control continue lab and vital monitor (2) Hypokalemia K is 3.0 today, replace with potassium lab monitor (3) C.Diff colitis positive C.Diff, and stool culture reveals positive WBC and positive Occult. it seems C.Diff caused colitis treat with PO vancomycin continue IVF of NS for hydration continue pain control continue lab and vital monitor Qualifiers: Abdominal location: right lower quadrant Qualified Code(s): R10.31 - Right lower quadrant pain
[2019-04-25] MEDS: VANCOMYCIN 125 MG CAPSULE PO SCH ×3 (12:49→21:02)
[2019-04-25 13:32] LABS: ABSOLUTE RETICS # AUTO 0.056 10^6/uL (0.020-0.110); MEAN RETIC VALUE 106.3; RED BLOOD COUNT 4.03 10^6/uL (4.20-5.40)
[2019-04-25 13:58] LABS: % IRON SATURATION 14 % (20-50); IRON 32 ug/dL (28-170); TOTAL IRON BINDING CAPACITY 234 ug/dL (250-450); TRANSFERRIN 167 mg/dL (192-382)
[2019-04-25 14:03] LABS: FERRITIN 38.8 ng/mL (11.0-306.8)
[2019-04-25] MEDS: FERROUS SULFATE 325 MG TABLET PO SCH (15:40)
[2019-04-25] MEDS ORDERED: MIN OIL/DIMETHICON/COCONUT OIL 92 GM TUBE TOP PRN (16:35)
[2019-04-25] MEDS: ACETAMINOPHEN 1,000 MG/100 ML 100 ML IV PRN (17:22)
[2019-04-25 18:52] LABS: HGB - HEMOGLOBIN 12.2 g/dL (12.0-16.0)
[2019-04-26] MEDS: ACETAMINOPHEN 1,000 MG/100 ML 100 ML IV PRN ×2 (01:39→11:38)
[2019-04-26] MEDS: SODIUM CHLORIDE 0.9% 1,000 ML IV SCH ×2 (02:59→14:12)
[2019-04-26 05:56] LABS: HGB - HEMOGLOBIN 11.8 g/dL (12.0-16.0); MEAN CORPUSCULAR HEMOGLOBIN 29.8 pg (27.0-31.0); MEAN CORPUSCULAR HGB CONC 33.5 g/dL (32.0-36.0); MEAN CORPUSCULAR VOLUME 89.1 fL (81.0-99.0); NEUTROPHILS # (AUTO) 1.6 10^3/uL (1.5-6.6); NEUTROPHILS % (AUTO) 39.8 %; RED BLOOD COUNT 3.95 10^6/uL (4.20-5.40); RED CELL DISTRIBUTION WIDTH 13.5 % (12.0-15.0); WHITE BLOOD COUNT 3.9 x10^3/uL (4.8-10.8)
[2019-04-26 05:59] LABS: CALCIUM 7.8 mg/dL (8.5-10.3); CREATININE 0.5 mg/dL (0.4-1.0); MAGNESIUM 1.9 mg/dL (1.7-2.8)
[2019-04-26] MEDS: KETOROLAC 30 MG/ML VIAL IVP PRN ×2 (06:05→18:15)
[2019-04-26] MEDS: PANTOPRAZOLE 40 MG VIAL IVP SCH (06:06)
[2019-04-26] MEDS: SODIUM CHLORIDE FLUSH 0.9% 10 ML SYRINGE IVP PRN (06:07)
[2019-04-26] MEDS: SODIUM CHLORIDE FLUSH 0.9% 10 ML SYRINGE IVP SCH ×3 (07:05→18:10)
[2019-04-26] MEDS: FERROUS SULFATE 325 MG TABLET PO SCH (08:12)
[2019-04-26] MEDS: VANCOMYCIN 125 MG CAPSULE PO SCH ×4 (08:12→21:59)
[2019-04-26] MEDS: SIMETHICONE CHEW 80 MG TABLET PO SCH ×4 (08:12→21:59)
[2019-04-26] MEDS: POLYETHYLENE GLYCOL 3350 17 GM PACKET PO SCH (08:13)
--- NOTE | 2019-04-26 10:55 | PROVIDER PROGRESS NOTE ---
Subjective - Prog Note Date Prog Note Date: 04/26/19 - Subjective Pt reports feeling: Improved Subjective: pt report her abdominal pain is some better than yesterday, she had 23 times of diarrhea on yesterday, she report she had 6 times of diarrhea so far. She report she had a good appetite. She denies N/V, fever, chill, chest pain. Current Medications - Current Medications Current Medications: Active Medications Acetaminophen (Tylenol) 650 mg PO Q4HR PRN PRN Reason: Pain 1 to 4 Last Admin: 04/25/19 10:37 Dose: 650 mg Famotidine (Pepcid) 20 mg PO BID [facility] Ferrous Sulfate (Feosol) 325 mg PO DAILYWM [facility] Last Admin: 04/26/19 08:12 Dose: 325 mg Acetaminophen (Ofirmev) 100 mls @ 400 mls/hr IV Q6HR PRN PRN Reason: PAIN Last Infusion: 04/26/19 01:54 Dose: Infused Sodium Chloride (Normal Saline 0.9%) 1,000 mls @ 100 mls/hr IV .Q10H [facility] Last Admin: 04/26/19 02:59 Dose: 100 mls/hr Ketorolac Tromethamine (Toradol Inj (30mg)) 30 mg IVP Q6HR PRN PRN Reason: PAIN Stop: 04/29/19 20:10 Last Admin: 04/26/19 06:05 Dose: 30 mg Mineral Oil (Cavilon) 1 applic TOP PRN PRN PRN Reason: Skin Care Ondansetron HCl (Zofran Inj) 4 mg IVP Q6HR PRN PRN Reason: Nausea / Vomiting Ondansetron HCl (Zofran Odt) 4 mg TL Q6HR PRN PRN Reason: Nausea / Vomiting Oxycodone HCl (Roxicodone) 5 mg PO Q4HR PRN PRN Reason: Pain 5 to 7 Last Admin: 04/26/19 00:30 Dose: 5 mg Polyethylene Glycol (Miralax) 17 gm PO DAILY [facility] Last Admin: 04/26/19 08:13 Dose: Not Given Prochlorperazine Edisylate (Compazine Inj) 10 mg IVP Q6HR PRN PRN Reason: Nausea / Vomiting Saccharomyces Boulardii (Florastor) 500 mg PO BIDWM [facility] Simethicone (Mylicon) 80 mg PO 0900,1300,1800,2100 [facility] Last Admin: 04/26/19 08:12 Dose: 80 mg Sodium Chloride (Normal Saline Flush 0.9%) 10 ml IVP PRN PRN PRN Reason: NEEDED PER PROVIDER ORDERS Last Admin: 04/26/19 06:07 Dose: 10 ml Sodium Chloride (Normal Saline Flush 0.9%) 10 ml IVP 0100,0900,1700 [facility] Last Admin: 04/26/19 08:13 Dose: Not Given Vancomycin HCl (Vancocin) 125 mg PO QID [facility] Last Admin: 04/26/19 08:12 Dose: 125 mg Ibuprofen [Advil] 800 mg PO DAILY PRN 04/25/19 Objective - Vital Signs/Intake & Output Reviewed Vital Signs: Yes Vital Signs: Vital Signs x48h Temp Pulse Resp BP Pulse Ox 04/26/19 08:34 36.4 C L 77 16 120/75 99 Intake & Output: Intake & Output 04/23/19 04/24/19 04/25/19 04/26/19 23:59 23:59 23:59 23:59 Intake Total 0225.187 1727.833 1220 Output Total 1000 Balance 6166.453 6626.833 1220 - Objective General Appearance: positive: No acute distress, Alert. negative: Lethargic Eyes Bilateral: positive: Normal inspection, PERRL, No lid inflammation, Conjunctivae nml ENT: positive: ENT inspection nml, Pharynx nml, No signs of dehydration. negative: Purulent nasal drainage, Pharyngeal erythema, Oral lesions Neck: positive: Nml inspection, Thyroid nml, No JVD, Trachea midline. negative: Thyromegaly, Lymphadenopathy (R), Lymphadenopathy (L), Stiff neck, Swelling/bruising, Tracheal deviation Respiratory: positive: Chest non-tender, No respiratory distress, Breath sounds nml. negative: Wheezes, Rales, Rhonchi Cardiovascular: positive: Regular rate & rhythm, No murmur, No gallop. negative: Irregularly irregular, Extrasystoles, Tachycardia, Bradycardia, JVD present, Systolic murmur, Diastolic murmur Peripheral Pulses: 2+ Radial (R), 2+ Radial (L), 2+ Dorsalis pedis (R), 2+ Dorsalis pedis (L) Abdomen: positive: No organomegaly, Nml bowel sounds, No distention, Tenderness. negative: Guarding, Rebound Back: positive: Nml inspection. negative: CVA tenderness (R), CVA tenderness (L) Skin: positive: Color nml, No rash, Warm, Dry. negative: Cyanosis, Diaphoresis, Pallor Extremities: positive: Non-tender, Full ROM, Nml appearance. negative: Calf tenderness, Joint swelling, Arely's sign/cords Neurologic/Psychiatric: positive: Oriented x3, Motor nml, Sensation nml, Mood/affect nml. negative: Weakness, Facial droop, Slurred/abnml speech, Depressed mood/affect - Lab Results Fish Bones: 04/26/19 05:36 04/26/19 05:36 Other Labs: Lab Results x24hrs 04/26/19 04/26/19 04/25/19 Range/Units 05:36 05:36 18:40 WBC 3.9 L (4.8-10.8) x10^3/uL RBC 3.95 L (4.20-5.40) 10^6/uL Hgb 11.8 L (12.0-16.0) g/dL Hct 35.2 L (37.0-47.0) % MCV 89.1 (81.0-99.0) fL MCH 29.8 (27.0-31.0) pg MCHC 33.5 (32.0-36.0) g/dL RDW 13.5 (12.0-15.0) % Plt Count 212 (130-450) 10^3/uL MPV 8.0 (7.9-10.8) fL Reticulocyte % (Auto) (0.5-2.3) % Neut # (Auto) 1.6 (1.5-6.6) 10^3/uL Absolute Retic (0.020-0.110) 10^6/uL Sodium 142 (135-145) mmol/L Potassium 4.1 (3.5-5.0) mmol/L Chloride 112 H (101-111) mmol/L Carbon Dioxide 22 (21-32) mmol/L Anion Gap 8.0 (6-13) BUN 7 (6-20) mg/dL Creatinine 0.5 (0.4-1.0) mg/dL Estimated GFR (MDRD) 148 (>89) Glucose 91 (70-100) mg/dL Calcium 7.8 L (8.5-10.3) mg/dL Magnesium 1.9 (1.7-2.8) mg/dL Iron (28-170) ug/dL TIBC (250-450) ug/dL % Saturation (20-50) % Transferrin (192-382) mg/dL Ferritin (11.0-306.8) ng/mL Lactate Dehydrogenase 146 (91-225) IU/L Vitamin B12 (180-914) pg/mL C. difficile Tox B Gene (NEGATIVE) 04/25/19 04/25/19 04/25/19 Range/Units 18:40 08:00 05:30 WBC (4.8-10.8) x10^3/uL RBC (4.20-5.40) 10^6/uL Hgb 12.2 (12.0-16.0) g/dL Hct 36.6 L (37.0-47.0) % MCV (81.0-99.0) fL MCH (27.0-31.0) pg MCHC (32.0-36.0) g/dL RDW (12.0-15.0) % Plt Count (130-450) 10^3/uL MPV (7.9-10.8) fL Reticulocyte % (Auto) (0.5-2.3) % Neut # (Auto) (1.5-6.6) 10^3/uL Absolute Retic (0.020-0.110) 10^6/uL Sodium (135-145) mmol/L Potassium (3.5-5.0) mmol/L Chloride (101-111) mmol/L Carbon Dioxide (21-32) mmol/L Anion Gap (6-13) BUN (6-20) mg/dL Creatinine (0.4-1.0) mg/dL Estimated GFR (MDRD) (>89) Glucose (70-100) mg/dL Calcium (8.5-10.3) mg/dL Magnesium (1.7-2.8) mg/dL Iron (28-170) ug/dL TIBC (250-450) ug/dL % Saturation (20-50) % Transferrin (192-382) mg/dL Ferritin 38.8 (11.0-306.8) ng/mL Lactate Dehydrogenase (91-225) IU/L Vitamin B12 247 (180-914) pg/mL C. difficile Tox B Gene POSITIVE A* (NEGATIVE) 04/25/19 04/25/19 Range/Units 05:30 05:30 WBC (4.8-10.8) x10^3/uL RBC 4.03 L (4.20-5.40) 10^6/uL Hgb (12.0-16.0) g/dL Hct (37.0-47.0) % MCV (81.0-99.0) fL MCH (27.0-31.0) pg MCHC (32.0-36.0) g/dL RDW (12.0-15.0) % Plt Count (130-450) 10^3/uL MPV (7.9-10.8) fL Reticulocyte % (Auto) 1.38 (0.5-2.3) % Neut # (Auto) (1.5-6.6) 10^3/uL Absolute Retic 0.056 (0.020-0.110) 10^6/uL Sodium (135-145) mmol/L Potassium (3.5-5.0) mmol/L Chloride (101-111) mmol/L Carbon Dioxide (21-32) mmol/L Anion Gap (6-13) BUN (6-20) mg/dL Creatinine (0.4-1.0) mg/dL Estimated GFR (MDRD) (>89) Glucose (70-100) mg/dL Calcium (8.5-10.3) mg/dL Magnesium (1.7-2.8) mg/dL Iron 32 (28-170) ug/dL TIBC 234 L (250-450) ug/dL % Saturation 14 L (20-50) % Transferrin 167 L (192-382) mg/dL Ferritin (11.0-306.8) ng/mL Lactate Dehydrogenase (91-225) IU/L Vitamin B12 (180-914) pg/mL C. difficile Tox B Gene (NEGATIVE) ABX Reporting Has patient been on IV antibiotics over the past 48 hours?: Yes Sepsis Event Note (H) - Evaluation Current Stage of Sepsis: Ruled out Assessment/Plan - Problem List (1) Abdominal pain Impression: (1) Right lower quadrant abdominal pain 6/3 pt report her abdominal pain is some better than yesterday, and diarrhea also is better. continue PO vancomycin to treat underline C.Diff colitis continue IVF of NS for hydration continue pain control continue lab and vital monitor pt still present abdominal pain at right lower quadrant. CT of abdomen is unremarkable. But now C.diff test is positive and stool culture reveals positive WBC and positive Occult. The pain may be caused by C.diff colitis treat with PO vancomycin continue IVF of NS for hydration continue pain control continue lab and vital monitor (2) Hypokalemia 6/3 resolved K is 3.0 today, replace with potassium lab monitor (3) C.Diff colitis 6/3 pt did not take any antibiotics prior to admission, she could be one of 15% C.Diff case with unknown etiology pt continue to have diarrhea, but is better controlled than yesterday. continue PO vancomycin continue IVF of NS for hydration continue lab and vital monitor positive C.Diff, and stool culture reveals positive WBC and positive Occult. it seems C.Diff caused colitis treat with PO vancomycin continue IVF of NS for hydration continue pain control continue lab and vital monitor (4) diarrhea it is caused by C.Diff. pt had 6 times of diarrhea today hydration with IV and PO lab monitor hold PPI, replaced with pepcid treat underline C.Diff with PO Vancomycin Qualifiers: Abdominal location: right lower quadrant Qualified Code(s): R10.31 - Right lower quadrant pain
[2019-04-26] MEDS: SACCHAROMYCES BOULARDII 250 MG CAPSULE PO SCH ×2 (11:38→18:10)
[2019-04-26] MEDS: FAMOTIDINE 20 MG TABLET PO SCH (21:59)
[2019-04-27] MEDS: SODIUM CHLORIDE 0.9% 1,000 ML IV SCH (00:20)
[2019-04-27] MEDS: KETOROLAC 30 MG/ML VIAL IVP PRN (00:31)
[2019-04-27] MEDS: SODIUM CHLORIDE FLUSH 0.9% 10 ML SYRINGE IVP SCH ×2 (01:22→07:54)
[2019-04-27] MEDS: ACETAMINOPHEN 325 MG TABLET PO PRN (05:25)
[2019-04-27 05:59] LABS: HGB - HEMOGLOBIN 12.2 g/dL (12.0-16.0); MEAN CORPUSCULAR HEMOGLOBIN 29.5 pg (27.0-31.0); MEAN CORPUSCULAR HGB CONC 33.2 g/dL (32.0-36.0); MEAN PLATELET VOLUME 7.9 fL (7.9-10.8); NEUTROPHILS # (AUTO) 2.7 10^3/uL (1.5-6.6); NEUTROPHILS % (AUTO) 45.4 %; RED BLOOD COUNT 4.14 10^6/uL (4.20-5.40); RED CELL DISTRIBUTION WIDTH 13.4 % (12.0-15.0)
[2019-04-27 06:03] LABS: CALCIUM 8.1 mg/dL (8.5-10.3); CREATININE 0.6 mg/dL (0.4-1.0)
[2019-04-27 07:49] VITALS: BP 116/75
[2019-04-27] MEDS: FERROUS SULFATE 325 MG TABLET PO SCH (07:53)
[2019-04-27] MEDS: SACCHAROMYCES BOULARDII 250 MG CAPSULE PO SCH (07:53)
[2019-04-27] MEDS: SIMETHICONE CHEW 80 MG TABLET PO SCH (07:53)
[2019-04-27] MEDS: POLYETHYLENE GLYCOL 3350 17 GM PACKET PO SCH (07:54)
[2019-04-27] MEDS: FAMOTIDINE 20 MG TABLET PO SCH (07:54)
[2019-04-27] MEDS: VANCOMYCIN 125 MG CAPSULE PO SCH (07:54)
--- NOTE | 2019-04-27 09:56 | Discharge Plan ---
Discharge Plan Disposition: Home, Self Care Condition: Good Prescriptions: Famotidine [Pepcid] 20 mg PO BID #60 tablet Hydrocodone/Acetaminophen [Hydrocodone-Acetamin 5-325 mg] 1 each PO Q4H PRN #21 tablet PRN Reason: Abdominal Pain Vancomycin [Vancocin] 125 mg PO QID 12 Days #48 capsule Diet: Soft Activity Restrictions: No Restrictions Shower Restrictions: No Driving Restrictions: No Instruction Topics: Famotidine tablets or gelcaps, Vancomycin capsules, Abdominal Pain, Clostridium Difficile Infec Additional Instructions or Follow Up instructions: You were first admitted for abdominal pain, vomiting and uncontrolled stool. A stool test revealed a pathogen called clostridium difficile and were treated with vancomycin, which should continue at home for the next 12 days. Your daily diarrhea is concerning. NSAIDS (ibuprofen, naproxen, aspirin) or caffeine are a few reasons for your diarrhea. You will need a follow up with a gastro-intestinal specialist. Your insurance issues were handled, and you were signed up. Please see your primary care provider within one week. You may need a colonoscopy, which can be ordered by your PCP. No Smoking: If you smoke, Please STOP! Call for help.
--- NOTE | 2019-04-27 15:02 | DISCHARGE SUMMARY ---
"Discharge Summary Admit Date: 04/24/19 Discharge Date: 04/27/19 Discharging Provider: SUHA Vaughn Primary Care Provider: Katherine Haley Code Status: Attempt Resuscitation Condition at Discharge: Good Discharge Disposition: 01 Home, Self Care - DIAGNOSES Admission Diagnoses: Other acute postprocedural pain (G89.18) Hypokalemia (E87.6) Discharge Diagnoses with Status of Each Condition: Colitis, Clostridium difficile (A04.72) new on this admission, via stool sample, continue on vancomycin Q6H for the next 12 days Hypokalemia (E87.6) resolved, likely a consequence of ongoing diarrhea Fever (R50.9) resolved after 24 hours of hospital stay Right lower quadrant abdominal pain (G89.18) Likely due to acute infection, much improved at the time of discharge, tolerating meals Normocytic anemia (D64.9) Iron studies show iron deficiency, follow up with PCP Chronic diarrhea (K52.9) Started after lap michelle, avoid NSAIDs, PPIs, stable on discharge Morbid obesity (E66.01) chronic, stable History of cholecystectomy (Z90.49) chronic, stable - HPI History of Present Illness: HPI per Dr. Adams (with some modifications): Shireen Rodriguez is a 28-year old morbidly obese female who regards herself as healthy with no known chronic illnesses. She started having abdominal pain 2 days ago. It was sudden in onset, located between the umbilicus and the right lower quadrant. She describes it as a sensation of a short tube that is stabbing from the inside deep in her belly. She demonstrates by using her thumb and index finger to show me the length of the tube and its about 7 cm long. Pain is present only with palpation, but also becomes worse by moving. She prefers to just lay on her back and be still. She has no appetite. When she tries to have flatulence or a bowel movement the pain in this area already described, becomes intensely worse. It is waxing and waning. She has been having loose stools. No blood in the stool. She is started vomiting yesterday, and started having fevers in the middle of the night on Friday night. She denied any blood in urine, urgency, frequency. She states that about 2 years ago she had her gallbladder removed, which has caused her daily diarrhea since that time. She has had no recent travel, and none of her children are sick. While in the emergency room she received IV fluids as well as Dilaudid. She says that Dilaudid is terrible. It may work with her pain, but it makes her so lightheaded and confused, she can not even remember how many brothers and sister she has. She would prefer not to get any opiates. In the emergency room she was evaluated by Dr. Gonzales. Temperature was 38.1, pulse was 102, blood pressure 123/87, and she had normal oxygen saturations on room air. Physical exam was positive for the right lower quadrant and trina- umbilical pain with deep palpation. She has bowel sounds. CT the abdomen is completely normal, white cell count is normal. Urinalysis is pristine. Urine test is negative. She was admitted to observation, that was changed to inpatient after stool re sults showed acute c. diff colitis. In the emergency room she was able to keep ice chips down, and was trying to eat a cracker prior to being transported to the Medical surgical nursing unit. - CONSULTS | PROCEDURES Consultations: none - HOSPITAL COURSE Hospital Course: The patient improved with IV fluids, symptom management, and after starting the oral vancomycin. A stool test was + for c. diff, with all other testing negative. Prescriptions were sent to her pharmacy. She was advised to seek further work up for the actual cause of this infection and for her chronic diarrhea that has been present since her gallbladder removal. She was given a short course of hydrocodone for her abdominal discomfort that becomes worse at night. She was transported home via private car with her and was medically stable. - ALLERGIES Allergies/Adverse Reactions: Allergies Allergy/AdvReac Type Severity Reaction Status Date / Time No Known Drug Allergies Allergy Verified 08/15/15 06:03 - MEDICATIONS Home Medications: Ambulatory Orders Medication Instructions Recorded Confirmed Ibuprofen [Advil] 800 mg PO DAILY PRN 04/25/19 04/25/19 Famotidine [Pepcid] 20 mg PO BID #60 tablet 04/27/19 Hydrocodone/Acetaminophen 1 each PO Q4H PRN #21 tablet 04/27/19 [Hydrocodone-Acetamin 5-325 mg] Vancomycin [Vancocin] 125 mg PO QID 12 Days #48 capsule 04/27/19 - PHYSICAL EXAM AT DISCHARGE General Appearance: positive: No acute distress, Alert Eyes Bilateral: positive: Normal inspection, PERRL ENT: positive: ENT inspection nml, Pharynx nml, No signs of dehydration Neck: positive: Nml inspection, Thyroid nml, No JVD, Trachea midline Respiratory: positive: Chest non-tender, No respiratory distress, Breath sounds nml Cardiovascular: positive: Regular rate & rhythm, No murmur, No gallop Peripheral Pulses: positive: 2+ Abdomen: positive: Nml bowel sounds, Tenderness, Hepatomegaly, Other (soft, rounded) Back: positive: Nml inspection Skin: positive: Color nml, No rash, Warm, Dry Extremities: positive: Non-tender, Full ROM, Nml appearance, No pedal edema Neurologic/Psychiatric: positive: Oriented x3, CN's nml (2-12), Motor nml, Sensation nml, Mood/affect nml Reflexes: Bicep (R): 3+, Bicep (L): 3+ - LABS Result Diagrams: 04/27/19 05:43 04/27/19 05:43 - DIAGNOSTIC IMAGING Diagnostic Imaging Results: Final report reviewed Diagnostic Imaging Results Comments: EXAM: CT ABDOMEN AND PELVIS EXAM DATE: 04/24/2019 06:14 PM IMPRESSION: No acute abnormalities. Normal appendix. - SEPSIS Current Stage of Sepsis: Ruled out - FOLLOW UP Follow Up: Disposition: Home, Self Care Condition: Good Prescriptions: Famotidine [Pepcid] 20 mg PO BID #60 tablet Hydrocodone/Acetaminophen [Hydrocodone-Acetamin 5-325 mg] 1 each PO Q4H PRN #21 tablet PRN Reason: Abdominal Pain Vancomycin [Vancocin] 125 mg PO QID 12 Days #48 capsule Diet: Soft Additional Instructions or Follow Up instructions: You were first admitted for abdominal pain, vomiting and uncontrolled stool. A stool test revealed a pathogen called clostridium difficile and were treated with vancomycin, which should continue at home for the next 12 days. Your daily diarrhea is concerning. NSAIDS (ibuprofen, naproxen, aspirin) or caffeine are a few reasons for your diarrhea. You will need a follow up with a gastro-intestinal specialist. Your insurance issues were handled, and you were signed up. Please see your primary care provider within one week. You may need a colonoscopy, which can be ordered by your PCP. - TIME SPENT Time Spent in Discharge (Minutes): 45"
[2019-04-28] MEDS ORDERED: IOVERSOL 320 100 ML VIAL IVP ONE (12:05)
== END 2019-04-27 11:19 | disposition home or self-care (01) | DRG 373 ==
LOC: ED 16:13 → MS2 20:08 → OBSVTOIN 04-26 10:41
PROVIDERS: ADMIT Specialist; ATTEND Nurse Practitioner
DX: A04.72 Enterocolitis due to Clostridium difficile, not specified as recurrent (principal); E87.6 Hypokalemia; R11.2 Nausea with vomiting, unspecified; R42 Dizziness and giddiness; R41.0 Disorientation, unspecified; T40.2X5A Adverse effect of other opioids, initial encounter; Y92.238 Other place in hospital as the place of occurrence of the external cause; D50.9 Iron deficiency anemia, unspecified; K52.89 Other specified noninfective gastroenteritis and colitis; E66.01 Morbid (severe) obesity due to excess calories; Z90.49 Acquired absence of other specified parts of digestive tract; Z68.37 Body mass index [BMI] 37.0-37.9, adult; Z97.5 Presence of (intrauterine) contraceptive device; Z87.09 Personal history of other diseases of the respiratory system
CPT/HCPCS: 36415; 74177; 80048; 80053; 81003; 81025; 82274; 82607; 82728; 83540; 83615; 83630; 83690; 83735; 84466; 85014; 85018; 85025; 85027; 85044; 87045; 87046; 87493; 96361; 96365; 96366; 96375; 96376; 99284; A6250; A9270; G0378; J0131; J1170; J8499; Q9967; 81001; 87086; 96374

== ENCOUNTER 2021-08-27 08:00 | Outpatient (CLI) | payer MEDICAID | END 2021-08-27 23:59 | disposition home or self-care (01) | LOC: LAB.N 08:00 | PROVIDERS: ATTEND Family Medicine | DX: R05.9 Cough, unspecified (principal); Z20.822 Contact with and (suspected) exposure to COVID-19 ==

== ENCOUNTER 2022-01-27 08:11 | Outpatient (CLI) | payer MEDICAID | END 2022-01-27 08:12 | disposition short-term general hospital (02) | LOC: EMS 08:11 | DX: R20.2 Paresthesia of skin (principal); R51.9 Headache, unspecified | CPT/HCPCS: A0425; A0429 ==

== ENCOUNTER 2022-05-20 08:00 | Outpatient (CLI) | payer MEDICAID | END 2022-05-20 23:59 | disposition home or self-care (01) | LOC: LAB 08:00 | PROVIDERS: ATTEND Physician Assistant | DX: R30.0 Dysuria (principal) | CPT/HCPCS: 87086 ==

== ENCOUNTER 2023-01-16 15:45 | Outpatient (CLI) | payer MEDICAID ==
[2023-01-16 23:01] LABS: BACTERIAL VAGINOSIS DNA NEGATIVE (NEGATIVE); CANDIDA KRUSEI DNA NEGATIVE (NEGATIVE); TRICHOMONAS VAGINALIS DNA NEGATIVE (NEGATIVE)
[2023-01-16 23:02] LABS: CANDIDA GLABRATA DNA NEGATIVE (NEGATIVE); CANDIDA GROUP DNA NEGATIVE (NEGATIVE)
== END 2023-01-16 23:59 | disposition home or self-care (01) ==
LOC: LAB.N 15:45
PROVIDERS: ATTEND Family Medicine
DX: N89.8 Other specified noninflammatory disorders of vagina (principal); R30.0 Dysuria
CPT/HCPCS: 81514; 87077; 87086; 87181

== ENCOUNTER 2023-03-08 21:42 | Outpatient (CLI) | payer MEDICAID | END 2023-03-08 23:59 | disposition critical access hospital (66) | LOC: EMS 21:42 | DX: R51.9 Headache, unspecified (principal); R68.84 Jaw pain; M54.2 Cervicalgia | CPT/HCPCS: A0425; A0429 ==

== ENCOUNTER 2023-03-08 22:04 | Emergency (ER) | payer MEDICAID ==
--- NOTE | 2023-03-08 22:13 | ED Physician Documentation ---
PD HPI HEADACHE - Stated complaint Stated Complaint: HEADACHE - History obtained from History obtained from: Patient - Additional information Additional information: HPI from patient. Patient complains of left-sided headache that woke her from a nap at approximately 7:30 PM tonight. Her headache is associate with nausea and vomiting, photosensitivity, and the pain radiates to the left side of her neck.She took a dose of Toradol without Any Improvement. She Denies Injury, Denies Fever. On My HPI, the Patient Seems to Indicate That She Does Not Have an Established History of Migraine Headache Review of Systems Constitutional: denies: Fever Eyes: reports: Photophobia. denies: Loss of vision, Decreased vision GI: reports: Nausea, Vomiting Neurologic: reports: Headache. 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: None : None HEENT: None Psych: None Musculoskeletal: None Derm: None - Past Surgical History Past Surgical History: Yes General: Cholecystectomy /BUSINESS SERVICES OFFICER: section - Present Medications Home Medications: Ambulatory Orders Medication Instructions Recorded Confirmed Ibuprofen [Advil] 800 mg PO DAILY PRN 04/25/19 04/25/19 Famotidine [Pepcid] 20 mg PO BID #60 tablet 04/27/19 Hydrocodone/Acetaminophen 1 each PO Q4H PRN #21 tablet 04/27/19 [Hydrocodone-Acetamin 5-325 mg] metroNIDAZOLE [Flagyl] 500 mg PO Q8H #30 tablet 04/27/19 Oxycodone HCl/Acetaminophen 1 - 2 each PO Q6HR PRN #20 tablet 03/09/23 [Percocet 5-325 mg Tablet] Promethazine [Phenergan] 25 mg PO Q6H PRN #14 tab 03/09/23 - Allergies Allergies/Adverse Reactions: Allergies Allergy/AdvReac Type Severity Reaction Status Date / Time No Known Drug Allergies Allergy Verified 03/08/23 22:18 - Social History Does the pt smoke?: No Smoking Status: Never smoker Does the pt drink ETOH?: No Does the pt have substance abuse?: No - Immunizations Immunizations are current?: Yes - POLST Patient has POLST: No POLST Status: Full Code PD ED PE NORMAL - Vitals Vital signs reviewed: Yes - General General: Alert and oriented X 3, Well developed/nourished, Other (appears uncomfortable, covering eyes and asks that I dim the lights ) - HEENT HEENT: PERRL, EOMI, Moist mucous membranes - Neck Neck: Supple, no meningeal sign Results - Vitals Vitals: Oxygen O2 Source Room air - Rads (name of study) CTH Relevant Findings:: Prelim report reviewed, See rad report PD Medical Decision Making - ED course Complexity details: reviewed results, re-evaluated patient, considered differential, d/w patient ED course: Patient was given 2 mg Dilaudid IM as well as 25 mg of Phenergan IM. She reported significant improvement in the nausea although not complete resolution; she reports minimal improvement in the headache. She was then given 8 mg of Zofran TL, and 10 mg of p.o. oxycodone. On subsequent reevaluation, she reports generalized pruritus as well as lip swelling; she is in no respiratory distress and does not complain of any difficulty breathing, there is no rash, and I do not note any obvious trina-/intraoral swelling. However, given the sensation of pruritus and lip swelling, she is then given 25 mg of Benadryl IM. A CT head is then performed and this is without remarkable/concerning/diagnostic findings. I then reevaluated her again, and she is reporting resolution of the nausea, improvement in the headache but still with another headache that she is requesting another dose of pain medication before being discharged. She is slightly drowsy, but conversant and with clear speech, answers appropriately. She is given 1 mg IM Dilaudid, provided a take-home pack of Percocet. Results of the CT head were discussed with patient, return precautions also reviewed. I instructed her to contact her primary care provider in the office next open to arrange for a follow-up appointment for reevaluation. Prescriptions for Percocet and Phenergan are electronically submitted to her pharmacy of choice. I am prescribing a short course of short-acting opioid pain medication for this patient. 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 I have discussed that the opioids are for short term therapy only, and will not be refilled from the ED. Departure - Departure Disposition: 01 Home, Self Care Clinical Impression: Headache Condition: Good Instructions: ED Cephalgia Unspecified Follow-Up: YOBANY REYNOLDS [Primary Care Provider] - Prescriptions: Oxycodone HCl/Acetaminophen [Percocet 5-325 mg Tablet] 1 - 2 each PO Q6HR PRN #20 tablet PRN Reason: Headache Promethazine [Phenergan] 25 mg PO Q6H PRN #14 tab PRN Reason: Nausea / Vomiting Comments: There were no abnormalities on the CT scan of your head. The cause of your headache is not apparent at this time. I have electronically submitted prescriptions for Percocet (opiate/narcotic pain medication) and promethazine (antinausea medication) to the [facility] pharmacy in [place]. Contact your primary care provider in the morning on Friday when the office opens to arrange for next available appointment for reevaluation/follow-up. I am prescribing a short course of narcotic pain medication for you. These are potentially dangerous and addictive medications that should be used carefully. These medications may constipate you. Take an cmud-jog-rpzufoy stool softener (docusate) twice daily with plenty of water while taking these medications. If you go 24 hours without a bowel movement, take sahc-olo-iwigxur miralax, per package instructions. Do not drink or drive while taking these medications. If you received narcotic or sedating medications while in the emergency department, do not drive for 24 hours. Store this medication in a safe, secure place and out of reach of children. It is a violation of federal law to give or sell this medication to another person or to use in a manner other than prescribed. The ED will not refill narcotic prescriptions, including prescriptions lost or stolen. To dispose of unwanted medications: 1. [facility] [address] in [place] has a medication drop box. They accept prescription medications (in pill form) Friday through Friday 9:00 a.m. to 5:00 p.m. 2. The [facility] [employer] accepts prescription medications (in pill form only) for disposal year round. Call for more information. 3. Contact the [facility] for the next [facility] sponsored prescription drug collection event. , [phone], or [phone]; Discharge Date/Time: 03/09/23 05:01
[2023-03-08] MEDS ORDERED: HYDROmorphone 1 MG/ML CARPUJECT IM STA (22:37)
[2023-03-08] MEDS ORDERED: PROMETHAZINE 25 MG/1 ML VIAL IM STA (22:37)
--- NOTE | 2023-03-08 23:20 | CT Report ---
PROCEDURE: HEAD WO INDICATIONS: headache TECHNIQUE: Noncontrast 4.5 mm thick angled axial sections acquired from the foramen magnum to the vertex. For r adiation dose reduction, the following was used: automated exposure control, adjustment of mA and/or kV according to patient size. COMPARISON: 08/15/[address] FINDINGS: Image quality: Excellent. CSF spaces: Basal cisterns are patent. No extra-axial fluid collections. Ventricles are normal in size and shape. Brain: No midline shift. No intracranial masses or hemorrhage. Shanks-white matter interface is norm al. Skull and face: Calvarium and visualized facial bones are intact, without suspicious lesions. Sinuses: Visualized sinuses and mastoids are clear. IMPRESSION: No source of headache is identified. Normal for age. Reviewed by: Hai Whitney MD on 03/08/2023 11:19 PM PDT Approved by: Hai Whitney MD on 03/08/2023 11:19 PM PDT Station ID: [id number]
--- OUTSIDE RECORDS SUMMARY | 2023-03-08 23:41 | EXTERNAL MEDICAL SUMMARY RPT | Continuity of Care Document ---
:1990 Author Organization [facility] Address [address] [place] [address] Phone Care Team Providers Name Role Phone Heydi Chirinos Unavailable Unavailable Allergies and Intolerances date description facility type (no date) No Known Drug Allergies [facility] ([facility] own) Encounters No information. Functional Status No information. Immunizations No information. Medications date description facility 2023-01-30 00:00 Ondansetron [facility] 2023-01-01 00:00 Omeprazole [facility] 2023-01-30 00:00 Cefpodoxime [facility] 2023-01-30 00:00 Ketorolac [facility] 2023-01-30 00:00 Hydrocodone-Acetaminophen [facility] 2023-01-06 00:00 Peg 3350-Electrolytes [facility] Problems date description facility 2023-01-01 00:00 Obesity with body mass index (BMI) of 3 5.0 to [facility] 39.9 without comorbidity 2023-01-06 [facility]:00 Acute flank pain [facility] Procedures date description facility 2023-01-30 00:00 CT kidney, ureter [facility] Results/Labs test date author facility value unit interpret ation Result panel 1 (unknown) (no date[facility]) Result panel 2 (unknown) (no date) (unknown[facility] Result panel 3 (unknown) (no date) (unknown) [facility]) Result panel 4 (unknown) (no date) (unknown[facility]) Result panel 5 (unknown) (no date) (unknown[facility]) Result panel 6 (unknown) (no date) (unknown[facility]) Result panel 7 (unknown) (no date) (unknown[facility]) Result panel 8 (unknown) (no date) (unknown[facility]) Result panel 9 (unknown) (no date) (unknown[facility]) Result panel 10 (unknown) (no date) (unknown[facility]) Result panel 11 (unknown) (no date) (unknown[facility]) Result panel 12 (unknown) (no date) (unknown[facility]) Result panel 13 (unknown) (no date) (unknown[facility]) Result panel 14 (unknown) (no date) (unknown[facility]) Result panel 15 (unknown) (no date) (unknown[facility]) Result panel 16 (unknown) (no date) (unknown[facility]) Result panel 17 (unknown) (no date) (unknown[facility]) Result panel 18 (unknown) (no date) (unknown[facility]) Result panel 19 (unknown) (no date) (unknown[facility]) Result panel 20 (unknown) (no date) (unknown[facility]) Result panel 21 (unknown) (no date) (unknown[facility]) Result panel 22 (unknown) (no date) (unknown[facility]) Result panel 23 (unknown) (no date) (unknown[facility]) Result panel 24 (unknown) (no date) (unknown[facility]) Result panel 25 (unknown) (no date) (unknown[facility]) Result panel 26 (unknown) (no date) (unknown[facility]) Result panel 27 (unknown) (no date) (unknown[facility]) Result panel 28 (unknown) (no date) (unknown[facility]) Result panel 29 (unknown) (no date) (unknown[facility]) Result panel 30 (unknown) (no date) (unknown[facility]) Result panel 31 (unknown) (no date) (unknown[facility]) Result panel 32 (unknown) (no date) (unknown[facility]) Result panel 33 (unknown) (no date) (unknown[facility]) Result panel 34 (unknown) (no date) (unknown[facility]) Result panel 35 (unknown) (no date) (unknown[facility]) Result panel 36 (unknown) (no date) (unknown[facility]) Result panel 37 (unknown) (no date) (unknown[facility]) Result panel 38 (unknown) (no date) (unknown[facility]) Result panel 39 (unknown) (no date) (unknown[facility]) Result panel 40 (unknown) (no date) (unknown[facility]) Result panel 41 (unknown) (no date) (unknown[facility]) Result panel 42 (unknown) (no date) (unknown[facility]) Result panel 43 (unknown) (no date) (unknown[facility]) Result panel 44 (unknown) (no date) (unknown[facility]) Result panel 45 (unknown) (no date) (unknown[facility]) Result panel 46 (unknown) (no date) (unknown[facility]) Result panel 47 (unknown) (no date) (unknown[facility]) Result panel 48 (unknown) (no date) (unknown[facility]) Result panel 49 (unknown) (no date) (unknown[facility]) Result panel 50 (unknown) (no date) (unknown[facility]) Result panel 51 (unknown) (no date) (unknown[facility]) Result panel 52 (unknown) (no date) (unknown[facility]) Result panel 53 (unknown) (no date) (unknown[facility]) Result panel 54 (unknown) (no date) (unknown[facility]) Result panel 55 (unknown) (no date) (unknown[facility]) Result panel 56 (unknown) (no date) (unknown[facility]) Result panel 57 (unknown) (no date) (unknown[facility]) Result panel 58 (unknown) (no date) (unknown[facility]) Result panel 59 (unknown) (no date) (unknown[facility]) Result panel 60 (unknown) (no date) (unknown[facility]) Result panel 61 (unknown) (no date) (unknown[facility]) Result panel 62 (unknown) (no date) (unknown[facility]) Result panel 63 (unknown) (no date) (unknown[facility]) Result panel 64 (unknown) (no date) (unknown[facility]) Result panel 65 (unknown) (no date) (unknown[facility]) Result panel 66 (unknown) (no date) (unknown[facility]) Result panel 67 (unknown) (no date) (unknown[facility]) Result panel 68 (unknown) (no date) (unknown[facility]) Result panel 69 (unknown) (no date) (unknown[facility]) Result panel 70 (unknown) (no date) (unknown[facility]) Result panel 71 (unknown) (no date) (unknown[facility]) Result panel 72 (unknown) (no date) (unknown[facility]) Result panel 73 (unknown) (no date) (unknown[facility]) Result panel 74 (unknown) (no date) (unknown[facility]) Result panel 75 (unknown) (no date) (unknown[facility]) Result panel 76 (unknown) (no date) (unknown[facility]) Result panel 77 (unknown) (no date) (unknown[facility]) Result panel 78 (unknown) (no date) (unknown[facility]) Result panel 79 (unknown) (no date) (unknown[facility]) Result panel 80 (unknown) (no date) (unknown[facility]) Result panel 81 (unknown) (no date) (unknown[facility]) Result panel 82 (unknown) (no date) (unknown[facility]) Result panel 83 (unknown) (no date) (unknown[facility]) Result panel 84 (unknown) (no date) (unknown[facility]) Result panel 85 (unknown) (no date) (unknown[facility]) Result panel 86 (unknown) (no date) (unknown[facility]) Result panel 87 (unknown) (no date) (unknown[facility]) Result panel 88 (unknown) (no date) (unknown[facility]) Result panel 89 (unknown) (no date) (unknown[facility]) Result panel 90 (unknown) (no date) (unknown[facility]) Result panel 91 (unknown) (no date) (unknown[facility]) Result panel 92 (unknown) (no date) (unknown[facility]) Result panel 93 (unknown) (no date) (unknown[facility]) Result panel 94 (unknown) (no date) (unknown[facility]) Result panel 95 (unknown) (no date) (unknown[facility]) Result panel 96 (unknown) (no date) (unknown[facility]) Result panel 97 (unknown) (no date) (unknown[facility]) Result panel 98 (unknown) (no date) (unknown[facility]) Result panel 99 (unknown) (no date) (unknown[facility]) Result panel 100 (unknown) (no date) (unknown[facility]) Result panel 101 (unknown) (no date) (unknown[facility]) Result panel 102 (unknown) (no date) (unknown[facility]) Result panel 103 (unknown) (no date) (unknown[facility]) Result panel 104 (unknown) (no date) (unknown[facility]) Result panel 105 (unknown) (no date) (unknown[facility]) Result panel 106 (unknown) (no date) (unknown[facility]) Result panel 107 (unknown) (no date) (unknown[facility]) Result panel 108 (unknown) (no date) (unknown[facility]) Result panel 109 (unknown) (no date) (unknown[facility]) Result panel 110 (unknown) (no date) (unknown[facility]) Result panel 111 (unknown) (no date) (unknown[facility]) Result panel 112 (unknown) (no date) (unknown[facility]) Result panel 113 (unknown) (no date) (unknown[facility]) Result panel 114 (unknown) (no date) (unknown[facility]) Result panel 115 (unknown) (no date) (unknown[facility]) Result panel 116 (unknown) (no date) (unknown[facility]) Result panel 117 (unknown) (no date) (unknown[facility]) Result panel 118 (unknown) (no date) (unknown[facility]) Result panel 119 (unknown) (no date) (unknown[facility]) Result panel 120 (unknown) (no date) (unknown[facility]) Result panel 121 (unknown) (no date) (unknown[facility]) Result panel 122 (unknown) (no date) (unknown[facility]) Result panel 123 (unknown) (no date) (unknown[facility]) Result panel 124 (unknown) (no date) (unknown[facility]) Result panel 125 (unknown) (no date) (unknown[facility]) Result panel 126 (unknown) (no date) (unknown[facility]) Result panel 127 (unknown) (no date) (unknown[facility]) Result panel 128 (unknown) (no date) (unknown[facility]) Result panel 129 (unknown) (no date) (unknown[facility]) Result panel 130 (unknown) (no date) (unknown[facility]) Result panel 131 (unknown) (no date) (unknown[facility]) Result panel 132 (unknown) (no date) (unknown[facility]) Result panel 133 (unknown) (no date) (unknown[facility]) Result panel 134 (unknown) (no date) (unknown[facility]) Result panel 135 (unknown) (no date) (unknown[facility]) Result panel 136 (unknown) (no date) (unknown[facility]) Result panel 137 (unknown) (no date) (unknown[facility]) Result panel 138 (unknown) (no date) (unknown[facility]) Result panel 139 (unknown) (no date) (unknown[facility]) Result panel 140 (unknown) (no date) (unknown[facility]) Result panel 141 (unknown) (no date) (unknown[facility]) Result panel 142 (unknown) (no date) (unknown[facility]) Result panel 143 (unknown) (no date) (unknown[facility]) Result panel 144 (unknown) (no date) (unknown[facility]) Result panel 145 (unknown) (no date) (unknown[facility]) Result panel 146 (unknown) (no date) (unknown[facility]) Result panel 147 (unknown) (no date) (unknown[facility]) Result panel 148 (unknown) (no date) (unknown[facility]) Result panel 149 (unknown) (no date) (unknown[facility]) Result panel 150 (unknown) (no date) (unknown[facility]) Result panel 151 (unknown) (no date) (unknown[facility]) Result panel 152 (unknown) (no date) (unknown[facility]) Result panel 153 (unknown) (no date) (unknown[facility]) Result panel 154 (unknown) (no date) (unknown[facility]) Result panel 155 (unknown) (no date) (unknown[facility]) Result panel 156 (unknown) (no date) (unknown[facility]) Result panel 157 (unknown) (no date) (unknown[facility]) Result panel 158 (unknown) (no date) (unknown[facility]) Result panel 159 (unknown) (no date) (unknown[facility]) Result panel 160 (unknown) (no date) (unknown[facility]) Result panel 161 (unknown) (no date) (unknown) [facility]) Result panel 162 (unknown) (no date) (unknown) [facility]) Result panel 163 (unknown) (no date) (unknown) [facility]) Result panel 164 (unknown) (no date) (unknown) [facility]) Result panel 165 (unknown) (no date) (unknown) [facility]) Result panel 166 (unknown) (no date) (unknown[facility]) Result panel 167 (unknown) (no date) (unknown[facility]) Result panel 168 (unknown) (no date) (unknown) [facility]) Result panel 169 (unknown) (no date) (unknown) [facility]) Result panel 170 (unknown) (no date) (unknown) [facility]) Result panel 171 (unknown) (no date) (unknown) [facility]) Result panel 172 (unknown) (no date) (unknown[facility]) Result panel 173 (unknown) (no date) (unknown[facility]) Result panel 174 (unknown) (no date) (unknown[facility]) Result panel 175 (unknown) (no date) (unknown[facility]) Result panel 176 (unknown) (no date) (unknown[facility]) Result panel 177 (unknown) (no date) (unknown[facility]) Result panel 178 (unknown) (no date) (unknown[facility]) Result panel 179 (unknown) (no date) (unknown[facility]) Result panel 180 (unknown) (no date) (unknown[facility]) Result panel 181 (unknown) (no date) (unknown[facility]) Result panel 182 (unknown) (no date) (unknown[facility]) Result panel 183 (unknown) (no date) (unknown[facility]) Result panel 184 (unknown) (no date) (unknown[facility]) Result panel 185 (unknown) (no date) (unknown[facility]) Result panel 186 (unknown) (no date) (unknown[facility]) Result panel 187 (unknown) (no date) (unknown[facility]) Result panel 188 (unknown) (no date) (unknown[facility]) Result panel 189 (unknown) (no date) (unknown[facility]) Result panel 190 (unknown) (no date) (unknown[facility]) Result panel 191 (unknown) (no (unknown) (unknown) (no value) (units (unk nown) date) unknown) (unknown) (no (unknown) (unknown) [id number] (units (unkno wn) date) unknown) (unknown) (no (unknown) (unknown) 01/01/23 (units (unkno wn) date) unknown) (unknown) (no (unknown) (unknown) 32 year old (units (un known) date) female presents to unknown) clinic for stomach pain and nausea x (unknown) (no (unknown) (unknown) Age/Sex: 32 / F (units (unknown) date) Date of Service: unknown) (unknown) (no (unknown) (unknown) Allergies (units (unkn own) date) unknown) (unknown) (no (unknown) (unknown) [place], [place] (units ( unknown) date) [id number] unknown) (unknown) (no (unknown) (unknown) Anemia (-2017) (units (unknown) date) unknown) (unknown) (no (unknown) (unknown) Anxiety (units (unkno wn) date) (07/09/16) unknown) (unknown) (no (unknown) (unknown) Anxiety (units (unkno wn) date) unknown) (unknown) (no (unknown) (unknown) Attending Dr: Julia (units (unknown) date) Sumi SneedORonda unknown) (unknown) (no (unknown) (unknown) Biliary colic (units ( unknown) date) unknown) (unknown) (no (unknown) (unknown) Cholelithiasis (units (unknown) date) unknown) (unknown) (no (unknown) (unknown) Chronic headaches (units (unknown) date) unknown) (unknown) (no (unknown) (unknown) : 1990 (units (unknown) date) Acct:[id number] unknown) (unknown) (no (unknown) (unknown) Dept at (units (unkno wn) date) . unknown) (unknown) (no (unknown) (unknown) Documented By: (units (unknown) date) Julia Jonas unknown) 01/01/23 1536 (unknown) (no (unknown) (unknown) Draft (units (unkno wn) date) unknown) (unknown) (no (unknown) (unknown) Dysthymia (units (unkn own) date) (07/09/16) unknown) (unknown) (no (unknown) (unknown) Exposure to (units (un known) date) hepatitis B unknown) (-2015) (unknown) (no (unknown) (unknown) Family History (units (unknown) date) (Reviewed 01/27/22 unknown) @ 09:23 by Sharifa Rush DO) (unknown) (no (unknown) (unknown) Family Practice (units (unknown) date) Office Visit unknown) (unknown) (no (unknown) (unknown) Father (units (unknown) date) Myocardial unknown) infarction (unknown) (no (unknown) (unknown) [facility]) (unknown) (no (unknown) (unknown) Grandfather (units (un known) date) Unknown unknown) whether patient has any health problems (unknown) (no (unknown) (unknown) Grandmother (units (un known) date) Twins, unknown) both liveborn (unknown) (no (unknown) (unknown) Grandmother (units (un known) date) Unknown unknown) whether patient has any health problems (unknown) (no (unknown) (unknown) H/O (units (u nknown) date) section unknown) complicating (unknown) (no (unknown) (unknown) H/O wisdom tooth (units (unknown) date) extraction () unknown) (unknown) (no (unknown) (unknown) Health Management (units (unknown) date) reviewed with unknown) patient: Yes (unknown) (no (unknown) (unknown) Health Management (units (unknown) date) unknown) (unknown) (no (unknown) (unknown) History of (units (unk nown) date) primary unknown) section (-03/05/13) (unknown) (no (unknown) (unknown) Intake Note: (units (u nknown) date) unknown) (unknown) (no (unknown) (unknown) Intake performed (units (unknown) date) by: Margarita Ortega unknown) (unknown) (no (unknown) (unknown) Intake (units (unkno wn) date) unknown) (unknown) (no (unknown) (unknown) Intake- Clincial (units (unknown) date) Staff unknown) (unknown) (no (unknown) (unknown) Last Menstural (units (unknown) date) Cycle + Details unknown) (unknown) (no (unknown) (unknown) Loc: [facility] (units (unkno wn) date) unknown) (unknown) (no (unknown) (unknown) Medical History (units (unknown) date) (Updated 05/10/22 unknown) @ 07:42 by Heydi Chirinos MD) (unknown) (no (unknown) (unknown) Mother Diabetes (units (unknown) date) mellitus unknown) (unknown) (no (unknown) (unknown) No Known Drug (units ( unknown) date) Allergies Allergy unknown) (Unknown, Verified 01/01/23 15:36) (unknown) (no (unknown) (unknown) Occipital (units (unkn own) date) neuralgia unknown) (unknown) (no (unknown) (unknown) Osteomyelitis (units ( unknown) date) () unknown) (unknown) (no (unknown) (unknown) Other Menstrual (units (unknown) date) Period: Uncertain unknown) (IUD) (unknown) (no (unknown) (unknown) PFSH (units (unkno wn) date) unknown) (unknown) (no (unknown) (unknown) Patient: (units (unkno wn) date) Bernie Rodriguez unknown) MR#: [id number] (unknown) (no (unknown) (unknown) Reason For Visit (units (unknown) date) unknown) (unknown) (no (unknown) (unknown) Rh negative state (units (unknown) date) in antepartum unknown) period (unknown) (no (unknown) (unknown) Signed By: (units (unk nown) date) unknown) (unknown) (no (unknown) (unknown) Sister Depression (units (unknown) date) unknown) (unknown) (no (unknown) (unknown) Sister (units (unkno wn) date) Hypoglycemic unknown) disorder (unknown) (no (unknown) (unknown) Smoking Status: (units (unknown) date) Never smoker unknown) (unknown) (no (unknown) (unknown) Social History (units (unknown) date) unknown) (unknown) (no (unknown) (unknown) Status post (units (un known) date) delivery unknown) (04/10/17) (unknown) (no (unknown) (unknown) Status post (units (un known) date) cholecystectomy unknown) (2016) (unknown) (no (unknown) (unknown) Status post (units (un known) date) incision and unknown) drainage () (unknown) (no (unknown) (unknown) Surgical History (units (unknown) date) (Reviewed 01/27/22 unknown) @ 09:23 by Sharifa Rush DO) (unknown) (no (unknown) (unknown) This note may (units ( unknown) date) have been all or unknown) partially generated using voice recognition (unknown) (no (unknown) (unknown) Tobacco + (units (unkn own) date) Substance Use unknown) (unknown) (no (unknown) (unknown) Tobacco Status (units (unknown) date) unknown) (unknown) (no (unknown) (unknown) Visit Reasons: (units (unknown) date) Stomach pain, unknown) nausea (unknown) (no (unknown) (unknown) alcohol intake: (units (unknown) date) former unknown) (pre- : 'once in a while') (unknown) (no (unknown) (unknown) caregiver/support (units (unknown) date) person: No unknown) (unknown) (no (unknown) (unknown) current (units (unkno wn) date) occupational unknown) exposures/hazards: No (unknown) (no (unknown) (unknown) education level: (units (unknown) date) college (MA in [place] unknown) needs to re-do to work here in [place]) (unknown) (no (unknown) (unknown) matilde/spiritism: (units (unknown) date) Gnosticist unknown) (unknown) (no (unknown) (unknown) have occurred. If (units (unknown) date) there are any unknown) questions, please contact the Medical Records (unknown) (no (unknown) (unknown) household (units (unkn own) date) members: spouse unknown) and family (unknown) (no (unknown) (unknown) housing: house (units (unknown) date) unknown) (unknown) (no (unknown) (unknown) lives (units (unkno wn) date) independently: Yes unknown) (unknown) (no (unknown) (unknown) marital status: (units (unknown) date) unknown) (unknown) (no (unknown) (unknown) may occur. 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 Please (unknown) (no (unknown) (unknown) pets and animals: (units (unknown) date) Yes (X dog) unknown) (unknown) (no (unknown) (unknown) read the note (units ( unknown) date) carefully and unknown) recognize, using context, where these substitutions (unknown) (no (unknown) (unknown) second hand (units (un known) date) exposure: No unknown) (unknown) (no (unknown) (unknown) software. 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 errors (unknown) (no (unknown) (unknown) special matilde (units ( unknown) date) needs: No unknown) (unknown) (no (unknown) (unknown) substance use (units ( unknown) date) type: does not use unknown) Result panel 192 (unknown) (no (unknown) (unknown) (no value) (units (unk nown) date) unknown) (unknown) (no (unknown) (unknown) [id number] (units (unkno wn) date) unknown) (unknown) (no (unknown) (unknown) 01/01/23 (units (unkno wn) date) unknown) (unknown) (no (unknown) (unknown) 01/01/23] (units (unkn own) date) unknown) (unknown) (no (unknown) (unknown) 15:53 (units (unkno wn) date) unknown) (unknown) (no (unknown) (unknown) 32 year old (units (un known) date) female presents to unknown) clinic for stomach pain and nausea. (unknown) (no (unknown) (unknown) Age/Sex: 32 / F (units (unknown) date) Date of Service: unknown) (unknown) (no (unknown) (unknown) Allergies (units (unkn own) date) unknown) (unknown) (no (unknown) (unknown) [place], [place] (units ( unknown) date) [id number] unknown) (unknown) (no (unknown) (unknown) Anemia (-2017) (units (unknown) date) unknown) (unknown) (no (unknown) (unknown) Anxiety (units (unkno wn) date) (07/09/16) unknown) (unknown) (no (unknown) (unknown) Anxiety (units (unkno wn) date) unknown) (unknown) (no (unknown) (unknown) Attending : Julia (units (unknown) date) Sumi Cat unknown) (unknown) (no (unknown) (unknown) BMI 37.4 (units (unkno wn) date) unknown) (unknown) (no (unknown) (unknown) BP 111/78 (units (unkn own) date) unknown) (unknown) (no (unknown) (unknown) Biliary colic (units ( unknown) date) unknown) (unknown) (no (unknown) (unknown) Blood Pressure (units (unknown) date) Location Rt radial unknown) (unknown) (no (unknown) (unknown) Cholelithiasis (units (unknown) date) unknown) (unknown) (no (unknown) (unknown) Chronic headaches (units (unknown) date) unknown) (unknown) (no (unknown) (unknown) Confirmed (units (unkn own) date) 01/01/23] unknown) (unknown) (no (unknown) (unknown) : 1990 (units (unknown) date) Acct:[id number] unknown) (unknown) (no (unknown) (unknown) Dept at (units (unkno wn) date) . unknown) (unknown) (no (unknown) (unknown) Documented By: (units (unknown) date) Julia Jonas unknown) 01/01/23 1536 (unknown) (no (unknown) (unknown) Draft (units (unkno wn) date) unknown) (unknown) (no (unknown) (unknown) Dysthymia (units (unkn own) date) (07/09/16) unknown) (unknown) (no (unknown) (unknown) Exposure to (units (un known) date) hepatitis B unknown) (-2015) (unknown) (no (unknown) (unknown) Family History (units (unknown) date) (Reviewed 01/27/22 unknown) @ 09:23 by Sharifa Rush DO) (unknown) (no (unknown) (unknown) Family Practice (units (unknown) date) Office Visit unknown) (unknown) (no (unknown) (unknown) Father (units (unknown) date) Myocardial unknown) infarction (unknown) (no (unknown) (unknown) [facility] ([facility] unknown) (unknown) (no (unknown) (unknown) Grandfather (units (un known) date) Unknown unknown) whether patient has any health problems (unknown) (no (unknown) (unknown) Grandmother (units (un known) date) Twins, unknown) both liveborn (unknown) (no (unknown) (unknown) Grandmother (units (un known) date) Unknown unknown) whether patient has any health problems (unknown) (no (unknown) (unknown) H/O (units (u nknown) date) section unknown) complicating (unknown) (no (unknown) (unknown) H/O wisdom tooth (units (unknown) date) extraction () unknown) (unknown) (no (unknown) (unknown) Health Management (units (unknown) date) reviewed with unknown) patient: Yes (unknown) (no (unknown) (unknown) Health Management (units (unknown) date) unknown) (unknown) (no (unknown) (unknown) Height 5 ft 5 in (units (unknown) date) unknown) (unknown) (no (unknown) (unknown) History of (units (unk nown) date) primary unknown) section (-03/05/13) (unknown) (no (unknown) (unknown) Intake Note: (units (u nknown) date) unknown) (unknown) (no (unknown) (unknown) Intake performed (units (unknown) date) by: Margarita Ortega unknown) (unknown) (no (unknown) (unknown) Intake (units (unkno wn) date) unknown) (unknown) (no (unknown) (unknown) Intake- Clincial (units (unknown) date) Staff unknown) (unknown) (no (unknown) (unknown) Last Menstural (units (unknown) date) Cycle + Details unknown) (unknown) (no (unknown) (unknown) Loc: [facility] (units (unkno wn) date) unknown) (unknown) (no (unknown) (unknown) Medical History (units (unknown) date) (Updated 05/10/22 unknown) @ 07:42 by Heydi Chirinos MD) (unknown) (no (unknown) (unknown) Medications (units (un known) date) unknown) (unknown) (no (unknown) (unknown) Mother Diabetes (units (unknown) date) mellitus unknown) (unknown) (no (unknown) (unknown) No Known Drug (units ( unknown) date) Allergies Allergy unknown) (Unknown, Verified 01/01/23 15:36) (unknown) (no (unknown) (unknown) Occipital (units (unkn own) date) neuralgia unknown) (unknown) (no (unknown) (unknown) Osteomyelitis (units ( unknown) date) (-1999) unknown) (unknown) (no (unknown) (unknown) Other Menstrual (units (unknown) date) Period: Uncertain unknown) (IUD) (unknown) (no (unknown) (unknown) Oxygen Delivery (units (unknown) date) Method room air unknown) (unknown) (no (unknown) (unknown) PFSH (units (unkno wn) date) unknown) (unknown) (no (unknown) (unknown) Patient: (units (unkno wn) date) Bernie Rodriguez unknown) MR#: [id number] (unknown) (no (unknown) (unknown) Position Sitting (units (unknown) date) unknown) (unknown) (no (unknown) (unknown) Pulse 72 (units (unkno wn) date) unknown) (unknown) (no (unknown) (unknown) Pulse Oximetry (units (unknown) date) (%) 99 unknown) (unknown) (no (unknown) (unknown) Pulse Source (units (u nknown) date) Monitor unknown) (unknown) (no (unknown) (unknown) Reason For Visit (units (unknown) date) unknown) (unknown) (no (unknown) (unknown) Rh negative state (units (unknown) date) in antepartum unknown) period (unknown) (no (unknown) (unknown) Signed By: (units (unk nown) date) unknown) (unknown) (no (unknown) (unknown) Sister Depression (units (unknown) date) unknown) (unknown) (no (unknown) (unknown) Sister (units (unkno wn) date) Hypoglycemic unknown) disorder (unknown) (no (unknown) (unknown) Smoking Status: (units (unknown) date) Never smoker unknown) (unknown) (no (unknown) (unknown) Social History (units (unknown) date) unknown) (unknown) (no (unknown) (unknown) Status post (units (un known) date) delivery unknown) (04/10/17) (unknown) (no (unknown) (unknown) Status post (units (un known) date) cholecystectomy unknown) (2017) (unknown) (no (unknown) (unknown) Status post (units (un known) date) incision and unknown) drainage (-1999) (unknown) (no (unknown) (unknown) Surgical History (units (unknown) date) (Reviewed 01/27/22 unknown) @ 09:23 by Sharifa Rush DO) (unknown) (no (unknown) (unknown) Temp 97.6 F (units (un known) date) unknown) (unknown) (no (unknown) (unknown) Temp Source (units (un known) date) Temporal Artery unknown) Scan (unknown) (no (unknown) (unknown) This note may (units ( unknown) date) have been all or unknown) partially generated using voice recognition (unknown) (no (unknown) (unknown) Tobacco + (units (unkn own) date) Substance Use unknown) (unknown) (no (unknown) (unknown) Tobacco Status (units (unknown) date) unknown) (unknown) (no (unknown) (unknown) Visit Reasons: (units (unknown) date) Stomach pain, unknown) nausea (unknown) (no (unknown) (unknown) Vitals (units (unkno wn) date) unknown) (unknown) (no (unknown) (unknown) Weight 225 lb (units ( unknown) date) unknown) (unknown) (no (unknown) (unknown) alcohol intake: (units (unknown) date) former unknown) (pre- : 'once in a while') (unknown) (no (unknown) (unknown) blood sugar (units (un known) date) diagnostic (True unknown) Metrix Glucose Test Strip) #100 ea 12/06/21 [Rx (unknown) (no (unknown) (unknown) blood-glucose (units ( unknown) date) meter (Blood unknown) Glucose Monitoring kit) #1 12/06/21 [Rx Confirmed (unknown) (no (unknown) (unknown) caregiver/support (units (unknown) date) person: No unknown) (unknown) (no (unknown) (unknown) current (units (unkno wn) date) occupational unknown) exposures/hazards: No (unknown) (no (unknown) (unknown) education level: (units (unknown) date) college ([place] in [place] unknown) needs to re-do to work here in [place]) (unknown) (no (unknown) (unknown) matilde/spiritism: (units (unknown) date) Gnosticist unknown) (unknown) (no (unknown) (unknown) feels like food (units (unknown) date) doesnt go down unknown) when she eats. has lots of diarrhea x 1 week. (unknown) (no (unknown) (unknown) have occurred. If (units (unknown) date) there are any unknown) questions, please contact the Medical Records (unknown) (no (unknown) (unknown) hemorrhoids (units (un known) date) possibly. unknown) (unknown) (no (unknown) (unknown) household (units (unkn own) date) members: spouse unknown) and family (unknown) (no (unknown) (unknown) housing: house (units (unknown) date) unknown) (unknown) (no (unknown) (unknown) ibuprofen 600 mg (units (unknown) date) tablet 600 mg PO unknown) Q6H PRN pain or cramping #30 tabs 03/20/21 [Rx (unknown) (no (unknown) (unknown) lancets #100 ea (units (unknown) date) 01/09/22 [Rx unknown) Confirmed 01/01/23] (unknown) (no (unknown) (unknown) lives (units (unkno wn) date) independently: Yes unknown) (unknown) (no (unknown) (unknown) marital status: (units (unknown) date) unknown) (unknown) (no (unknown) (unknown) may occur. 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 Please (unknown) (no (unknown) (unknown) ondansetron 4 mg (units (unknown) date) disintegrating unknown) tablet 4 mg PO Q8H PRN nausea and vomiting #14 (unknown) (no (unknown) (unknown) pets and animals: (units (unknown) date) Yes (X dog) unknown) (unknown) (no (unknown) (unknown) read the note (units ( unknown) date) carefully and unknown) recognize, using context, where these substitutions (unknown) (no (unknown) (unknown) second hand (units (un known) date) exposure: No unknown) (unknown) (no (unknown) (unknown) software. 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 errors (unknown) (no (unknown) (unknown) special matilde (units ( unknown) date) needs: No unknown) (unknown) (no (unknown) (unknown) substance use (units ( unknown) date) type: does not use unknown) (unknown) (no (unknown) (unknown) tabs 03/20/22 [Rx (units (unknown) date) Confirmed unknown) 01/01/23] (unknown) (no (unknown) (unknown) tramadol 50 mg (units (unknown) date) tablet 50 mg PO unknown) Q8H PRN pain #20 tabs 06/14/22 [Rx Confirmed Result panel 193 (unknown) (no (unknown) (unknown) (no value) (units (unk nown) date) unknown) (unknown) (no (unknown) (unknown) (1) Dysphagia: (units (unknown) date) unknown) (unknown) (no (unknown) (unknown) (2) Heartburn: (units (unknown) date) unknown) (unknown) (no (unknown) (unknown) (3) Diarrhea: (units ( unknown) date) unknown) (unknown) (no (unknown) (unknown) (4) Hypoglycemia: (units (unknown) date) unknown) (unknown) (no (unknown) (unknown) -after 6 months (units (unknown) date) of symptoms we unknown) will get an endoscopy to evaluate further. (unknown) (no (unknown) (unknown) -discussed the (units (unknown) date) importance of unknown) long-term plan for calorie reduction and weight (unknown) (no (unknown) (unknown) -labs pending (units ( unknown) date) unknown) (unknown) (no (unknown) (unknown) -to the ER for (units (unknown) date) worsening unknown) symptoms, any other concerns (unknown) (no (unknown) (unknown) -we will evaluate (units (unknown) date) further after the unknown) workup. (unknown) (no (unknown) (unknown) [id number] (units (unkno wn) date) unknown) (unknown) (no (unknown) (unknown) 01/01/23 (units (unkno wn) date) unknown) (unknown) (no (unknown) (unknown) 01/01/23] (units (unkn own) date) unknown) (unknown) (no (unknown) (unknown) 2. We will try (units (unknown) date) her on a PPI to unknown) see if it helps her heartburn symptoms and (unknown) (no (unknown) (unknown) 15:53 (units (unkno wn) date) unknown) (unknown) (no (unknown) (unknown) 3. Discussed (units (u nknown) date) probable length unknown) and course. She can take Imodium as needed at this (unknown) (no (unknown) (unknown) 32 year old (units (un known) date) female presents to unknown) clinic for stomach pain and nausea. (unknown) (no (unknown) (unknown) 4. She needs (units (u nknown) date) another glucose unknown) monitor. (unknown) (no (unknown) (unknown) ABDOMEN: (+) BS.? (units (unknown) date) Abdomen is soft. unknown) Mildly tender epigastric and lower quadrant (unknown) (no (unknown) (unknown) Age/Sex: 32 / F (units (unknown) date) Date of Service: unknown) (unknown) (no (unknown) (unknown) Allergies (units (unkn own) date) unknown) (unknown) (no (unknown) (unknown) Allergies: (units (unk nown) date) Reviewed unknown) (unknown) (no (unknown) (unknown) ALLY Borden (units ( unknown) date) [id number] unknown) (unknown) (no (unknown) (unknown) Anemia (-2017) (units (unknown) date) unknown) (unknown) (no (unknown) (unknown) Anxiety (units (unkno wn) date) (07/09/16) unknown) (unknown) (no (unknown) (unknown) Anxiety (units (unkno wn) date) unknown) (unknown) (no (unknown) (unknown) Assessment + Plan (units (unknown) date) unknown) (unknown) (no (unknown) (unknown) Attending Dr: Julia (units (unknown) date) Sumi Cat unknown) (unknown) (no (unknown) (unknown) BMI 37.4 (units (unkno wn) date) unknown) (unknown) (no (unknown) (unknown) BP 111/78 (units (unkn own) date) unknown) (unknown) (no (unknown) (unknown) Biliary colic (units ( unknown) date) unknown) (unknown) (no (unknown) (unknown) Blood Pressure (units (unknown) date) Location Rt radial unknown) (unknown) (no (unknown) (unknown) CARDIAC: Regular (units (unknown) date) rate and rhythm. unknown) S1, S2 normal, no murmur.? No edema. (unknown) (no (unknown) (unknown) CHEST: Normal (units ( unknown) date) respiratory effort unknown) (unknown) (no (unknown) (unknown) Cardiovascular: (units (unknown) date) Negative.? unknown) (unknown) (no (unknown) (unknown) Chief Complaint: (units (unknown) date) abd pain unknown) (unknown) (no (unknown) (unknown) Cholelithiasis (units (unknown) date) unknown) (unknown) (no (unknown) (unknown) Chronic headaches (units (unknown) date) unknown) (unknown) (no (unknown) (unknown) Complete Blood (units (unknown) date) Count AUTO DIFF unknown) Today R10.13 - Epigastric pain, R12 - Heartburn, (unknown) (no (unknown) (unknown) Comprehensive (units ( unknown) date) Metabolic Panel unknown) Today R10.13 - Epigastric pain, R12 - Heartburn, (unknown) (no (unknown) (unknown) Confirmed (units (unkn own) date) 01/01/23] unknown) (unknown) (no (unknown) (unknown) Constitutional: (units (unknown) date) Negative.? unknown) (unknown) (no (unknown) (unknown) : 1990 (units (unknown) date) Acct:[id number] unknown) (unknown) (no (unknown) (unknown) Dept at (units (unkno wn) date) . unknown) (unknown) (no (unknown) (unknown) Diarrhea type: (units (unknown) date) unspecified type unknown) Qualified Code(s): R19.7 - Diarrhea, (unknown) (no (unknown) (unknown) Documented By: (units (unknown) date) Julia Jonas unknown) 01/01/23 1536 (unknown) (no (unknown) (unknown) Draft (units (unkno wn) date) unknown) (unknown) (no (unknown) (unknown) Dysphagia type: (units (unknown) date) oropharyngeal unknown) phase Qualified Code(s): R13.12 (unknown) (no (unknown) (unknown) Dysphagia, (units (unk nown) date) oropharyngeal unknown) phase (unknown) (no (unknown) (unknown) Dysthymia (units (unkn own) date) (07/09/16) unknown) (unknown) (no (unknown) (unknown) EYES: PERRL, EOMI (units (unknown) date) and nonicteric unknown) (unknown) (no (unknown) (unknown) Endocrine: (units (unk nown) date) Negative.? unknown) (unknown) (no (unknown) (unknown) Exposure to (units (un known) date) hepatitis B unknown) (-2015) (unknown) (no (unknown) (unknown) Family History (units (unknown) date) (Reviewed 01/27/22 unknown) @ 09:23 by Sharifa Rush DO) (unknown) (no (unknown) (unknown) Family Practice (units (unknown) date) Office Visit unknown) (unknown) (no (unknown) (unknown) Father (units (unknown) date) Myocardial unknown) infarction (unknown) (no (unknown) (unknown) [facility]units ([facility] date[facility] unknown) (unknown) (no (unknown) (unknown) For the past 6 (units (unknown) date) days she has unknown) coincidentally had some loose stools are watery (unknown) (no (unknown) (unknown) GENERAL: Well (units ( unknown) date) developed, well unknown) nourished.? Cooperative with exam.? Patient is in (unknown) (no (unknown) (unknown) Genitourinary: (units (unknown) date) Negative.? unknown) (unknown) (no (unknown) (unknown) Grandfather (units (un known) date) Unknown unknown) whether patient has any health problems (unknown) (no (unknown) (unknown) Grandmother (units (un known) date) Twins, unknown) both liveborn (unknown) (no (unknown) (unknown) Grandmother (units (un known) date) Unknown unknown) whether patient has any health problems (unknown) (no (unknown) (unknown) H/O (units (u nknown) date) section unknown) complicating (unknown) (no (unknown) (unknown) H/O wisdom tooth (units (unknown) date) extraction () unknown) (unknown) (no (unknown) (unknown) HEAD: Atraumatic, (units (unknown) date) Normocephalic unknown) (unknown) (no (unknown) (unknown) Health Management (units (unknown) date) reviewed with unknown) patient: Yes (unknown) (no (unknown) (unknown) Health Management (units (unknown) date) unknown) (unknown) (no (unknown) (unknown) Height 5 ft 5 in (units (unknown) date) unknown) (unknown) (no (unknown) (unknown) Hemoglobin A1C% w (units (unknown) date) Est Avg Glu Today unknown) R10.13 - Epigastric pain, R12 - Heartburn, (unknown) (no (unknown) (unknown) History of (units (unk nown) date) primary unknown) section (-03/05/13) (unknown) (no (unknown) (unknown) I reviewed the (units (unknown) date) patient's Past unknown) Medical History, Problem List, Medications and (unknown) (no (unknown) (unknown) Intake Note: (units (u nknown) date) unknown) (unknown) (no (unknown) (unknown) Intake performed (units (unknown) date) by: Margarita Ortega unknown) (unknown) (no (unknown) (unknown) Intake (units (unkno wn) date) unknown) (unknown) (no (unknown) (unknown) Intake- Clincial (units (unknown) date) Staff unknown) (unknown) (no (unknown) (unknown) LUNGS: Clear all (units (unknown) date) lung bowens, unknown) Bilaterally (unknown) (no (unknown) (unknown) Last Menstural (units (unknown) date) Cycle + Details unknown) (unknown) (no (unknown) (unknown) Lipase Today (units (u nknown) date) R10.13 - unknown) Epigastric pain (unknown) (no (unknown) (unknown) Lipid Panel Today (units (unknown) date) R10.13 - unknown) Epigastric pain, R12 - Heartburn, R19.7 - Diarrhea, (unknown) (no (unknown) (unknown) Loc: [facility] (units (unkno wn) date) unknown) (unknown) (no (unknown) (unknown) MUSKULOSKELETAL: (units (unknown) date) Normal gait. unknown) (unknown) (no (unknown) (unknown) Medical History (units (unknown) date) (Updated 05/10/22 unknown) @ 07:42 by Heydi Chirinos MD) (unknown) (no (unknown) (unknown) Medications (units (un known) date) unknown) (unknown) (no (unknown) (unknown) Medications: (units (u nknown) date) Reconciled unknown) (unknown) (no (unknown) (unknown) Medications: (units (u nknown) date) unknown) (unknown) (no (unknown) (unknown) Mother Diabetes (units (unknown) date) mellitus unknown) (unknown) (no (unknown) (unknown) NECK: Full range (units (unknown) date) of motion, unknown) lymphadenopathy absent, supple (unknown) (no (unknown) (unknown) NEURO EXAM: Alert (units (unknown) date) and oriented x 3.? unknown) (unknown) (no (unknown) (unknown) Neurological: (units ( unknown) date) Negative.? unknown) (unknown) (no (unknown) (unknown) New (units (unkno wn) date) unknown) (unknown) (no (unknown) (unknown) No Known Drug (units ( unknown) date) Allergies Allergy unknown) (Unknown, Verified 01/01/23 15:36) (unknown) (no (unknown) (unknown) Note (units (unkno wn) date) unknown) (unknown) (no (unknown) (unknown) Note: (units (unkno wn) date) unknown) (unknown) (no (unknown) (unknown) Notes (units (unkno wn) date) unknown) (unknown) (no (unknown) (unknown) Objective: (units (unk nown) date) unknown) (unknown) (no (unknown) (unknown) Occipital (units (unkn own) date) neuralgia unknown) (unknown) (no (unknown) (unknown) Orders (units (unkno wn) date) unknown) (unknown) (no (unknown) (unknown) Orders: (units (unkno wn) date) unknown) (unknown) (no (unknown) (unknown) Osteomyelitis (units ( unknown) date) (-1999) unknown) (unknown) (no (unknown) (unknown) Other Menstrual (units (unknown) date) Period: Uncertain unknown) (IUD) (unknown) (no (unknown) (unknown) Oxygen Delivery (units (unknown) date) Method room air unknown) (unknown) (no (unknown) (unknown) PFSH (units (unkno wn) date) unknown) (unknown) (no (unknown) (unknown) PSYCH: judgement (units (unknown) date) normal, unknown) orientation normal, affect/mood normal and memory (unknown) (no (unknown) (unknown) Patient states (units (unknown) date) that for the past unknown) 6 months she is had difficulty swallowing. She (unknown) (no (unknown) (unknown) Patient: (units (unkno wn) date) Bernie Rodriguez unknown) MR#: [id number] (unknown) (no (unknown) (unknown) Plan (units (unkno wn) date) unknown) (unknown) (no (unknown) (unknown) Position Sitting (units (unknown) date) unknown) (unknown) (no (unknown) (unknown) Pulse 72 (units (unkno wn) date) unknown) (unknown) (no (unknown) (unknown) Pulse Oximetry (units (unknown) date) (%) 99 unknown) (unknown) (no (unknown) (unknown) Pulse Source (units (u nknown) date) Monitor unknown) (unknown) (no (unknown) (unknown) Qualifiers: (units (un known) date) unknown) (unknown) (no (unknown) (unknown) R19.7 - Diarrhea, (units (unknown) date) unspecified unknown) (unknown) (no (unknown) (unknown) Reason For Visit (units (unknown) date) unknown) (unknown) (no (unknown) (unknown) Refilled (units (unkno wn) date) unknown) (unknown) (no (unknown) (unknown) Respiratory: (units (u nknown) date) Negative.? unknown) (unknown) (no (unknown) (unknown) Review of (units (unkn own) date) Systems: unknown) (unknown) (no (unknown) (unknown) Rh negative state (units (unknown) date) in antepartum unknown) period (unknown) (no (unknown) (unknown) SKIN:? No rashes (units (unknown) date) on face or arms. unknown) (unknown) (no (unknown) (unknown) Signed By: (units (unk nown) date) unknown) (unknown) (no (unknown) (unknown) Sister Depression (units (unknown) date) unknown) (unknown) (no (unknown) (unknown) Sister (units (unkno wn) date) Hypoglycemic unknown) disorder (unknown) (no (unknown) (unknown) Smoking Status: (units (unknown) date) Never smoker unknown) (unknown) (no (unknown) (unknown) Social History (units (unknown) date) (including tobacco unknown) use status). (unknown) (no (unknown) (unknown) Social History (units (unknown) date) unknown) (unknown) (no (unknown) (unknown) Status post (units (un known) date) delivery unknown) (04/10/17) (unknown) (no (unknown) (unknown) Status post (units (un known) date) cholecystectomy unknown) (2017) (unknown) (no (unknown) (unknown) Status post (units (un known) date) incision and unknown) drainage (-1999) (unknown) (no (unknown) (unknown) Status: Acute (units ( unknown) date) unknown) (unknown) (no (unknown) (unknown) Stools are (units (unk nown) date) nonbloody. No unknown) recent illness or sick contacts. No recent travel. (unknown) (no (unknown) (unknown) Subjective: (units (un known) date) unknown) (unknown) (no (unknown) (unknown) Surgical History (units (unknown) date) (Reviewed 01/27/22 unknown) @ 09:23 by Sharifa Rush DO) (unknown) (no (unknown) (unknown) Temp 97.6 F (units (un known) date) unknown) (unknown) (no (unknown) (unknown) Temp Source (units (un known) date) Temporal Artery unknown) Scan (unknown) (no (unknown) (unknown) This note may (units ( unknown) date) have been all or unknown) partially generated using voice recognition (unknown) (no (unknown) (unknown) Tobacco + (units (unkn own) date) Substance Use unknown) (unknown) (no (unknown) (unknown) Tobacco Status (units (unknown) date) unknown) (unknown) (no (unknown) (unknown) Visit Reasons: (units (unknown) date) Stomach pain, unknown) nausea (unknown) (no (unknown) (unknown) Vital Signs: (units (u nknown) date) Reviewed unknown) (unknown) (no (unknown) (unknown) Vitals (units (unkno wn) date) unknown) (unknown) (no (unknown) (unknown) Voice recognition (units (unknown) date) software was used unknown) in the creation of this note. There may be (unknown) (no (unknown) (unknown) Weight 225 lb (units ( unknown) date) unknown) (unknown) (no (unknown) (unknown) alcohol intake: (units (unknown) date) former unknown) (pre- : 'once in a while') (unknown) (no (unknown) (unknown) blood sugar (units (un known) date) diagnostic (True unknown) Metrix Glucose Test Strip) #100 ea 12/06/21 [Rx (unknown) (no (unknown) (unknown) blood-glucose (units ( unknown) date) meter (Blood unknown) Glucose Monitoring kit) #1 ea 01/01/23 [Rx Confirmed (unknown) (no (unknown) (unknown) blood-glucose (units (u nknown) date) meter (Blood unknown) Glucose Monitoring kit) check blood sugar twice a day (unknown) (no (unknown) (unknown) caregiver/support (units (unknown) date) person: No unknown) (unknown) (no (unknown) (unknown) current (units (unkno wn) date) occupational unknown) exposures/hazards: No (unknown) (no (unknown) (unknown) education level: (units (unknown) date) college (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 She does have some heartburn (unknown) (no (unknown) (unknown) evaluate further. (units (unknown) date) unknown) (unknown) (no (unknown) (unknown) matilde/spiritism: (units (unknown) date) Gnosticist unknown) (unknown) (no (unknown) (unknown) feels like food (units (unknown) date) doesnt go down unknown) when she eats. has lots of diarrhea x 1 week. (unknown) (no (unknown) (unknown) feels like food (units (unknown) date) is getting stuck unknown) at the top of her throat and she has a hard (unknown) (no (unknown) (unknown) have occurred. If (units (unknown) date) there are any unknown) questions, please contact the Medical Records (unknown) (no (unknown) (unknown) hemorrhoids (units (un known) date) possibly. unknown) (unknown) (no (unknown) (unknown) history of (units (unk nown) date) tobacco use. She unknown) does not drink alcohol. No unusual weight loss, (unknown) (no (unknown) (unknown) household (units (unkn own) date) members: spouse unknown) and family (unknown) (no (unknown) (unknown) housing: house (units (unknown) date) unknown) (unknown) (no (unknown) (unknown) ibuprofen 600 mg (units (unknown) date) tablet 600 mg PO unknown) Q6H PRN pain or cramping #30 tabs 04/27/21 [Rx (unknown) (no (unknown) (unknown) lancets #100 ea (units (unknown) date) 01/09/22 [Rx unknown) Confirmed 01/01/23] (unknown) (no (unknown) (unknown) lives (units (unkno wn) date) independently: Yes unknown) (unknown) (no (unknown) (unknown) loss. She would (units (unknown) date) like a referral to unknown) a dietitian. (unknown) (no (unknown) (unknown) marital status: (units (unknown) date) unknown) (unknown) (no (unknown) (unknown) may occur. (units (unk nown) date) Occasional unknown) wrong-word or 'sound-alike' substitutions may have (unknown) (no (unknown) (unknown) meclizine 25 mg (units (unknown) date) tablet 25 mg PO unknown) BID PRN dizziness #14 tabs 03/20/22 [Rx (unknown) (no (unknown) (unknown) night sweats. (units ( unknown) date) unknown) (unknown) (no (unknown) (unknown) no apparent (units (un known) date) distress. 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 Please (unknown) (no (unknown) (unknown) omeprazole 20 mg (units (unknown) date) PO DAILY 90 caps unknown) 3RF R12 - Heartburn (unknown) (no (unknown) (unknown) omeprazole 20 mg (units (unknown) date) capsule,delayed unknown) release 20 mg PO DAILY #90 caps 01/01/23 [Rx (unknown) (no (unknown) (unknown) ondansetron 4 mg (units (unknown) date) disintegrating unknown) tablet 4 mg PO Q8H PRN nausea and vomiting #14 (unknown) (no (unknown) (unknown) or when shakey 1 (units (unknown) date) ea 0RF unknown) (unknown) (no (unknown) (unknown) pets and animals: (units (unknown) date) Yes (X dog) unknown) (unknown) (no (unknown) (unknown) point. If her (units ( unknown) date) symptoms persist unknown) we can consider getting some stool cultures to (unknown) (no (unknown) (unknown) potentially her (units (unknown) date) dysphagia. unknown) (unknown) (no (unknown) (unknown) read the note (units ( unknown) date) carefully and unknown) recognize, using context, where these substitutions (unknown) (no (unknown) (unknown) reflux. No (units (unk nown) date) significant right unknown) upper quadrant pain. No nausea, vomiting. No (unknown) (no (unknown) (unknown) second hand (units (un known) date) exposure: No unknown) (unknown) (no (unknown) (unknown) software. 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 errors (unknown) (no (unknown) (unknown) special matilde (units ( unknown) date) needs: No unknown) (unknown) (no (unknown) (unknown) stools several (units (unknown) date) times per day. unknown) Again no dietary triggers. No fevers, chills. (unknown) (no (unknown) (unknown) substance use (units ( unknown) date) type: does not use unknown) (unknown) (no (unknown) (unknown) tabs 03/20/22 [Rx (units (unknown) date) Confirmed unknown) 01/01/23] (unknown) (no (unknown) (unknown) tenderness. No (units (unknown) date) Marshall's sign.? No unknown) CVA tenderness. (unknown) (no (unknown) (unknown) time pushing (units (u nknown) date) foods past it. She unknown) states that there is no particular food (unknown) (no (unknown) (unknown) tramadol 50 mg (units (unknown) date) tablet 50 mg PO unknown) Q8H PRN pain #20 tabs 06/14/22 [Rx Confirmed (unknown) (no (unknown) (unknown) triggers the (units (u nknown) date) episodes. It has unknown) happened solids and liquids. She does have some (unknown) (no (unknown) (unknown) typographical (units ( unknown) date) errors as a unknown) result. (unknown) (no (unknown) (unknown) unspecified (units (un known) date) unknown) Result panel 194 (unknown) (no (unknown) (unknown) (no value) (units (unk nown) date) unknown) (unknown) (no (unknown) (unknown) (1) Dysphagia: (units (unknown) date) unknown) (unknown) (no (unknown) (unknown) (2) Heartburn: (units (unknown) date) unknown) (unknown) (no (unknown) (unknown) (3) Diarrhea: (units ( unknown) date) unknown) (unknown) (no (unknown) (unknown) (4) Hypoglycemia: (units (unknown) date) unknown) (unknown) (no (unknown) (unknown) (5) Obesity (BMI (units (unknown) date) 35.0-39.9 without unknown) comorbidity): (unknown) (no (unknown) (unknown) -after 6 months (units (unknown) date) of symptoms we unknown) will get an endoscopy to evaluate further. (unknown) (no (unknown) (unknown) -discussed the (units (unknown) date) importance of unknown) long-term plan for calorie reduction and weight (unknown) (no (unknown) (unknown) -labs pending (units ( unknown) date) unknown) (unknown) (no (unknown) (unknown) -to the ER for (units (unknown) date) worsening unknown) symptoms, any other concerns (unknown) (no (unknown) (unknown) -we will evaluate (units (unknown) date) further after the unknown) workup. (unknown) (no (unknown) (unknown) [id number] (units (unkno wn) date) unknown) (unknown) (no (unknown) (unknown) 01/01/23 1650 (units ( unknown) date) unknown) (unknown) (no (unknown) (unknown) 01/01/23 (units (unkno wn) date) unknown) (unknown) (no (unknown) (unknown) 01/01/23] (units (unkn own) date) unknown) (unknown) (no (unknown) (unknown) 11/25. We will try (units (unknown) date) her on a PPI to unknown) see if it helps her heartburn symptoms and (unknown) (no (unknown) (unknown) 15:53 (units (unkno wn) date) unknown) (unknown) (no (unknown) (unknown) 3. Discussed (units (u nknown) date) probable length unknown) and course. She can take Imodium as needed at this (unknown) (no (unknown) (unknown) 32 year old (units (un known) date) female presents to unknown) clinic for stomach pain and nausea. (unknown) (no (unknown) (unknown) 4. She needs (units (u nknown) date) another glucose unknown) monitor. (unknown) (no (unknown) (unknown) ABDOMEN: (+) BS.? (units (unknown) date) Abdomen is soft. unknown) Mildly tender epigastric and lower quadrant (unknown) (no (unknown) (unknown) Age/Sex: 32 / F (units (unknown) date) Date of Service: unknown) (unknown) (no (unknown) (unknown) Allergies (units (unkn own) date) unknown) (unknown) (no (unknown) (unknown) Allergies: (units (unk nown) date) Reviewed unknown) (unknown) (no (unknown) (unknown) [place], [place] (units ( unknown) date) [id number] unknown) (unknown) (no (unknown) (unknown) Anemia (-2017) (units (unknown) date) unknown) (unknown) (no (unknown) (unknown) Anxiety (units (unkno wn) date) (07/09/16) unknown) (unknown) (no (unknown) (unknown) Anxiety (units (unkno wn) date) unknown) (unknown) (no (unknown) (unknown) Assessment + Plan (units (unknown) date) unknown) (unknown) (no (unknown) (unknown) Attending Dr: Julia (units (unknown) date) Sumi DRondaORonda unknown) (unknown) (no (unknown) (unknown) BMI 37.4 (units (unkno wn) date) unknown) (unknown) (no (unknown) (unknown) BP 111/78 (units (unkn own) date) unknown) (unknown) (no (unknown) (unknown) Biliary colic (units ( unknown) date) unknown) (unknown) (no (unknown) (unknown) Blood Pressure (units (unknown) date) Location Rt radial unknown) (unknown) (no (unknown) (unknown) CARDIAC: Regular (units (unknown) date) rate and rhythm. unknown) S1, S2 normal, no murmur.? No edema. (unknown) (no (unknown) (unknown) CHEST: Normal (units ( unknown) date) respiratory effort unknown) (unknown) (no (unknown) (unknown) Cardiovascular: (units (unknown) date) Negative.? unknown) (unknown) (no (unknown) (unknown) Chief Complaint: (units (unknown) date) abd pain unknown) (unknown) (no (unknown) (unknown) Cholelithiasis (units (unknown) date) unknown) (unknown) (no (unknown) (unknown) Chronic headaches (units (unknown) date) unknown) (unknown) (no (unknown) (unknown) Complete Blood (units (unknown) date) Count AUTO DIFF unknown) Today R10.13 - Epigastric pain, R12 - Heartburn, (unknown) (no (unknown) (unknown) Comprehensive (units ( unknown) date) Metabolic Panel unknown) Today R10.13 - Epigastric pain, R12 - Heartburn, (unknown) (no (unknown) (unknown) Confirmed (units (unkn own) date) 01/01/23] unknown) (unknown) (no (unknown) (unknown) Constitutional: (units (unknown) date) Negative.? unknown) (unknown) (no (unknown) (unknown) : 1990 (units (unknown) date) Acct:[id number] unknown) (unknown) (no (unknown) (unknown) Dept at (units (unkno wn) date) . unknown) (unknown) (no (unknown) (unknown) Diarrhea type: (units (unknown) date) unspecified type unknown) Qualified Code(s): R19.7 - Diarrhea, (unknown) (no (unknown) (unknown) Documented By: (units (unknown) date) Julia Jonas unknown) 01/01/23 1536 (unknown) (no (unknown) (unknown) Dysphagia type: (units (unknown) date) oropharyngeal unknown) phase Qualified Code(s): R13.12 (unknown) (no (unknown) (unknown) Dysphagia, (units (unk nown) date) oropharyngeal unknown) phase (unknown) (no (unknown) (unknown) Dysthymia (units (unkn own) date) (07/09/16) unknown) (unknown) (no (unknown) (unknown) EYES: PERRL, EOMI (units (unknown) date) and nonicteric unknown) (unknown) (no (unknown) (unknown) Endocrine: (units (unk nown) date) Negative.? unknown) (unknown) (no (unknown) (unknown) Exposure to (units (un known) date) hepatitis B unknown) (-2015) (unknown) (no (unknown) (unknown) Family History (units (unknown) date) (Reviewed 01/27/22 unknown) @ 09:23 by Sharifa Rush DO) (unknown) (no (unknown) (unknown) Family Practice (units (unknown) date) Office Visit unknown) (unknown) (no (unknown) (unknown) Father (units (unknown) date) Myocardial unknown) infarction (unknown) (no (unknown) (unknown) [facility]) (unknown) (no (unknown) (unknown) For the past 6 (units (unknown) date) days she has unknown) coincidentally had some loose stools are watery (unknown) (no (unknown) (unknown) GENERAL: Well (units ( unknown) date) developed, well unknown) nourished.? Cooperative with exam.? Patient is in (unknown) (no (unknown) (unknown) Genitourinary: (units (unknown) date) Negative.? unknown) (unknown) (no (unknown) (unknown) Grandfather (units (un known) date) Unknown unknown) whether patient has any health problems (unknown) (no (unknown) (unknown) Grandmother (units (un known) date) Twins, unknown) both liveborn (unknown) (no (unknown) (unknown) Grandmother (units (un known) date) Unknown unknown) whether patient has any health problems (unknown) (no (unknown) (unknown) H/O (units (u nknown) date) section unknown) complicating (unknown) (no (unknown) (unknown) H/O wisdom tooth (units (unknown) date) extraction () unknown) (unknown) (no (unknown) (unknown) HEAD: Atraumatic, (units (unknown) date) Normocephalic unknown) (unknown) (no (unknown) (unknown) Health Management (units (unknown) date) reviewed with unknown) patient: Yes (unknown) (no (unknown) (unknown) Health Management (units (unknown) date) unknown) (unknown) (no (unknown) (unknown) Height 5 ft 5 in (units (unknown) date) unknown) (unknown) (no (unknown) (unknown) Hemoglobin A1C% w (units (unknown) date) Est Avg Glu Today unknown) R10.13 - Epigastric pain, R12 - Heartburn, (unknown) (no (unknown) (unknown) History of (units (unk nown) date) primary unknown) section (-03/05/13) (unknown) (no (unknown) (unknown) I reviewed the (units (unknown) date) patient's Past unknown) Medical History, Problem List, Medications and (unknown) (no (unknown) (unknown) Intake Note: (units (u nknown) date) unknown) (unknown) (no (unknown) (unknown) Intake performed (units (unknown) date) by: Margarita Ortega unknown) (unknown) (no (unknown) (unknown) Intake (units (unkno wn) date) unknown) (unknown) (no (unknown) (unknown) Intake- Clincial (units (unknown) date) Staff unknown) (unknown) (no (unknown) (unknown) LUNGS: Clear all (units (unknown) date) lung bowens, unknown) Bilaterally (unknown) (no (unknown) (unknown) Last Menstural (units (unknown) date) Cycle + Details unknown) (unknown) (no (unknown) (unknown) Lipase Today (units (u nknown) date) R10.13 - unknown) Epigastric pain (unknown) (no (unknown) (unknown) Lipid Panel Today (units (unknown) date) R10.13 - unknown) Epigastric pain, R12 - Heartburn, R19.7 - Diarrhea, (unknown) (no (unknown) (unknown) Loc: [facility] (units (unkno wn) date) unknown) (unknown) (no (unknown) (unknown) MUSKULOSKELETAL: (units (unknown) date) Normal gait. unknown) (unknown) (no (unknown) (unknown) Medical History (units (unknown) date) (Updated 01/01/23 unknown) @ 16:48 by Julia Jonas DO) (unknown) (no (unknown) (unknown) Medications (units (un known) date) unknown) (unknown) (no (unknown) (unknown) Medications: (units (u nknown) date) Reconciled unknown) (unknown) (no (unknown) (unknown) Medications: (units (u nknown) date) unknown) (unknown) (no (unknown) (unknown) Mother Diabetes (units (unknown) date) mellitus unknown) (unknown) (no (unknown) (unknown) NECK: Full range (units (unknown) date) of motion, unknown) lymphadenopathy absent, supple (unknown) (no (unknown) (unknown) NEURO EXAM: Alert (units (unknown) date) and oriented x 3.? unknown) (unknown) (no (unknown) (unknown) Neurological: (units ( unknown) date) Negative.? unknown) (unknown) (no (unknown) (unknown) New (units (unkno wn) date) unknown) (unknown) (no (unknown) (unknown) No Known Drug (units ( unknown) date) Allergies Allergy unknown) (Unknown, Verified 01/01/23 15:36) (unknown) (no (unknown) (unknown) Note (units (unkno wn) date) unknown) (unknown) (no (unknown) (unknown) Note: (units (unkno wn) date) unknown) (unknown) (no (unknown) (unknown) Notes (units (unkno wn) date) unknown) (unknown) (no (unknown) (unknown) Obesity (BMI (units (u nknown) date) 35.0-39.9 without unknown) comorbidity) (unknown) (no (unknown) (unknown) Objective: (units (unk nown) date) unknown) (unknown) (no (unknown) (unknown) Occipital (units (unkn own) date) neuralgia unknown) (unknown) (no (unknown) (unknown) Orders (units (unkno wn) date) unknown) (unknown) (no (unknown) (unknown) Orders: (units (unkno wn) date) unknown) (unknown) (no (unknown) (unknown) Osteomyelitis (units ( unknown) date) (-1999) unknown) (unknown) (no (unknown) (unknown) Other Menstrual (units (unknown) date) Period: Uncertain unknown) (IUD) (unknown) (no (unknown) (unknown) Oxygen Delivery (units (unknown) date) Method room air unknown) (unknown) (no (unknown) (unknown) PFSH (units (unkno wn) date) unknown) (unknown) (no (unknown) (unknown) PSYCH: judgement (units (unknown) date) normal, unknown) orientation normal, affect/mood normal and memory (unknown) (no (unknown) (unknown) Patient states (units (unknown) date) that for the past unknown) 6 months she is had difficulty swallowing. She (unknown) (no (unknown) (unknown) Patient: (units (unkno wn) date) Domonique Rodrigueza M unknown) MR#: [id number] (unknown) (no (unknown) (unknown) Plan (units (unkno wn) date) unknown) (unknown) (no (unknown) (unknown) Position Sitting (units (unknown) date) unknown) (unknown) (no (unknown) (unknown) Pulse 72 (units (unkno wn) date) unknown) (unknown) (no (unknown) (unknown) Pulse Oximetry (units (unknown) date) (%) 99 unknown) (unknown) (no (unknown) (unknown) Pulse Source (units (u nknown) date) Monitor unknown) (unknown) (no (unknown) (unknown) Qualifiers: (units (un known) date) unknown) (unknown) (no (unknown) (unknown) R19.7 - Diarrhea, (units (unknown) date) unspecified unknown) (unknown) (no (unknown) (unknown) Reason For Visit (units (unknown) date) unknown) (unknown) (no (unknown) (unknown) Referral Dietary (units (unknown) date) E66.9 - Obesity, unknown) unspecified (unknown) (no (unknown) (unknown) Referral General (units (unknown) date) Surgery R12 - unknown) Heartburn, R13.12 - Dysphagia, oropharyngeal (unknown) (no (unknown) (unknown) Referrals (units (unkn own) date) unknown) (unknown) (no (unknown) (unknown) Refilled (units (unkno wn) date) unknown) (unknown) (no (unknown) (unknown) Respiratory: (units (u nknown) date) Negative.? unknown) (unknown) (no (unknown) (unknown) Review of (units (unkn own) date) Systems: unknown) (unknown) (no (unknown) (unknown) Rh negative state (units (unknown) date) in antepartum unknown) period (unknown) (no (unknown) (unknown) SKIN:? No rashes (units (unknown) date) on face or arms. unknown) (unknown) (no (unknown) (unknown) Signed By: (units (unk nown) date) <Electronically unknown) signed by Julia Jonas> (unknown) (no (unknown) (unknown) Signed (units (unkno wn) date) unknown) (unknown) (no (unknown) (unknown) Sister Depression (units (unknown) date) unknown) (unknown) (no (unknown) (unknown) Sister (units (unkno wn) date) Hypoglycemic unknown) disorder (unknown) (no (unknown) (unknown) Smoking Status: (units (unknown) date) Never smoker unknown) (unknown) (no (unknown) (unknown) Social History (units (unknown) date) (including tobacco unknown) use status). (unknown) (no (unknown) (unknown) Social History (units (unknown) date) unknown) (unknown) (no (unknown) (unknown) Status post (units (un known) date) delivery unknown) (04/10/17) (unknown) (no (unknown) (unknown) Status post (units (un known) date) cholecystectomy unknown) (2017) (unknown) (no (unknown) (unknown) Status post (units (un known) date) incision and unknown) drainage (-1999) (unknown) (no (unknown) (unknown) Status: Acute (units ( unknown) date) unknown) (unknown) (no (unknown) (unknown) Stools are (units (unk nown) date) nonbloody. No unknown) recent illness or sick contacts. No recent travel. (unknown) (no (unknown) (unknown) Subjective: (units (un known) date) unknown) (unknown) (no (unknown) (unknown) Surgical History (units (unknown) date) (Reviewed 01/27/22 unknown) @ 09:23 by Sharifa Rush DO) (unknown) (no (unknown) (unknown) Temp 97.6 F (units (un known) date) unknown) (unknown) (no (unknown) (unknown) Temp Source (units (un known) date) Temporal Artery unknown) Scan (unknown) (no (unknown) (unknown) This note may (units ( unknown) date) have been all or unknown) partially generated using voice recognition (unknown) (no (unknown) (unknown) Tobacco + (units (unkn own) date) Substance Use unknown) (unknown) (no (unknown) (unknown) Tobacco Status (units (unknown) date) unknown) (unknown) (no (unknown) (unknown) Visit Reasons: (units (unknown) date) Stomach pain, unknown) nausea (unknown) (no (unknown) (unknown) Vital Signs: (units (u nknown) date) Reviewed unknown) (unknown) (no (unknown) (unknown) Vitals (units (unkno wn) date) unknown) (unknown) (no (unknown) (unknown) Voice recognition (units (unknown) date) software was used unknown) in the creation of this note. There may be (unknown) (no (unknown) (unknown) Weight 225 lb (units ( unknown) date) unknown) (unknown) (no (unknown) (unknown) alcohol intake: (units (unknown) date) former unknown) (pre- : 'once in a while') (unknown) (no (unknown) (unknown) blood sugar (units (un known) date) diagnostic (True unknown) Metrix Glucose Test Strip) #100 ea 12/06/21 [Rx (unknown) (no (unknown) (unknown) blood-glucose (units ( unknown) date) meter (Blood unknown) Glucose Monitoring kit) #1 ea 01/01/23 [Rx Confirmed (unknown) (no (unknown) (unknown) blood-glucose (units (u nknown) date) meter (Blood unknown) Glucose Monitoring kit) check blood sugar twice a day (unknown) (no (unknown) (unknown) caregiver/support (units (unknown) date) person: No unknown) (unknown) (no (unknown) (unknown) current (units (unkno wn) date) occupational unknown) exposures/hazards: No (unknown) (no (unknown) (unknown) education level: (units (unknown) date) college (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 She does have some heartburn (unknown) (no (unknown) (unknown) evaluate further. (units (unknown) date) unknown) (unknown) (no (unknown) (unknown) matilde/spiritism: (units (unknown) date) Gnosticist unknown) (unknown) (no (unknown) (unknown) feels like food (units (unknown) date) doesnt go down unknown) when she eats. has lots of diarrhea x 1 week. (unknown) (no (unknown) (unknown) feels like food (units (unknown) date) is getting stuck unknown) at the top of her throat and she has a hard (unknown) (no (unknown) (unknown) have occurred. If (units (unknown) date) there are any unknown) questions, please contact the Medical Records (unknown) (no (unknown) (unknown) hemorrhoids (units (un known) date) possibly. unknown) (unknown) (no (unknown) (unknown) history of (units (unk nown) date) tobacco use. She unknown) does not drink alcohol. No unusual weight loss, (unknown) (no (unknown) (unknown) household (units (unkn own) date) members: spouse unknown) and family (unknown) (no (unknown) (unknown) housing: house (units (unknown) date) unknown) (unknown) (no (unknown) (unknown) ibuprofen 600 mg (units (unknown) date) tablet 600 mg PO unknown) Q6H PRN pain or cramping #30 tabs 03/20/21 [Rx (unknown) (no (unknown) (unknown) lancets #100 ea (units (unknown) date) 01/09/22 [Rx unknown) Confirmed 01/01/23] (unknown) (no (unknown) (unknown) lives (units (unkno wn) date) independently: Yes unknown) (unknown) (no (unknown) (unknown) loss. She would (units (unknown) date) like a referral to unknown) a dietitian. (unknown) (no (unknown) (unknown) marital status: (units (unknown) date) unknown) (unknown) (no (unknown) (unknown) may occur. (units (unk nown) date) Occasional unknown) wrong-word or 'sound-alike' substitutions may have (unknown) (no (unknown) (unknown) meclizine 25 mg (units (unknown) date) tablet 25 mg PO unknown) BID PRN dizziness #14 tabs 03/20/22 [Rx (unknown) (no (unknown) (unknown) night sweats. (units ( unknown) date) unknown) (unknown) (no (unknown) (unknown) no apparent (units (un known) date) distress. 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 Please (unknown) (no (unknown) (unknown) omeprazole 20 mg (units (unknown) date) PO DAILY 90 caps unknown) 3RF R12 - Heartburn (unknown) (no (unknown) (unknown) omeprazole 20 mg (units (unknown) date) capsule,delayed unknown) release 20 mg PO DAILY #90 caps 01/01/23 [Rx (unknown) (no (unknown) (unknown) ondansetron 4 mg (units (unknown) date) disintegrating unknown) tablet 4 mg PO Q8H PRN nausea and vomiting #14 (unknown) (no (unknown) (unknown) or when shakey 1 (units (unknown) date) ea 0RF unknown) (unknown) (no (unknown) (unknown) pets and animals: (units (unknown) date) Yes (X dog) unknown) (unknown) (no (unknown) (unknown) phase (units (unkno wn) date) unknown) (unknown) (no (unknown) (unknown) point. If her (units ( unknown) date) symptoms persist unknown) we can consider getting some stool cultures to (unknown) (no (unknown) (unknown) potentially her (units (unknown) date) dysphagia. unknown) (unknown) (no (unknown) (unknown) read the note (units ( unknown) date) carefully and unknown) recognize, using context, where these substitutions (unknown) (no (unknown) (unknown) reflux. No (units (unk nown) date) significant right unknown) upper quadrant pain. No nausea, vomiting. No (unknown) (no (unknown) (unknown) second hand (units (un known) date) exposure: No unknown) (unknown) (no (unknown) (unknown) software. 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 errors (unknown) (no (unknown) (unknown) special matilde (units ( unknown) date) needs: No unknown) (unknown) (no (unknown) (unknown) stools several (units (unknown) date) times per day. unknown) Again no dietary triggers. No fevers, chills. (unknown) (no (unknown) (unknown) substance use (units ( unknown) date) type: does not use unknown) (unknown) (no (unknown) (unknown) tabs 03/20/22 [Rx (units (unknown) date) Confirmed unknown) 01/01/23] (unknown) (no (unknown) (unknown) tenderness. No (units (unknown) date) Marshall's sign.? No unknown) CVA tenderness. (unknown) (no (unknown) (unknown) time pushing (units (u nknown) date) foods past it. She unknown) states that there is no particular food (unknown) (no (unknown) (unknown) tramadol 50 mg (units (unknown) date) tablet 50 mg PO unknown) Q8H PRN pain #20 tabs 06/14/22 [Rx Confirmed (unknown) (no (unknown) (unknown) triggers the (units (u nknown) date) episodes. It has unknown) happened solids and liquids. She does have some (unknown) (no (unknown) (unknown) typographical (units ( unknown) date) errors as a unknown) result. (unknown) (no (unknown) (unknown) unspecified (units (un known) date) unknown) Result panel 195 (unknown) (no date) (unknown) (unknown) 0 /ul (unkn own) (unknown) (no date) (unknown) (unknown) 0.4 % (unkn own) (unknown) (no date) (unknown) (unknown) 13.0 g/dl (unkn own) (unknown) (no date) (unknown) (unknown) 13.3 % (unkn own) (unknown) (no date) (unknown) (unknown) 200 /ul (unkn own) (unknown) (no date) (unknown) (unknown) 2600 /ul (unkn own) (unknown) (no date) (unknown) (unknown) 29.5 pg (unkn own) (unknown) (no date) (unknown) (unknown) 3.3 % (unkn own) (unknown) (no date) (unknown) (unknown) 309 x10 3/ul (unkn own) (unknown) (no date) (unknown) (unknown) 33.3 % (unkn own) (unknown) (no date) (unknown) (unknown) 3500 /ul (unkn own) (unknown) (no date) (unknown) (unknown) 38.9 % (unkn own) (unknown) (no date) (unknown) (unknown) 38.9 % (unkn own) (unknown) (no date) (unknown) (unknown) 4.39 x10 6/ul (unkn own) (unknown) (no date) (unknown) (unknown) 400 /ul (unkn own) (unknown) (no date) (unknown) (unknown) 51.2 % (unkn own) (unknown) (no date) (unknown) (unknown) 6.2 % (unkn own) (unknown) (no date) (unknown) (unknown) 6.8 x10 3/ul (unkn own) (unknown) (no date) (unknown) (unknown) 88.6 fl (unkn own) Result panel 196 (unknown) (no date) (unknown) (unknown) 5.2 % (unkn own) (unknown) (no date) (unknown) (unknown) 5.2 % (unkn own) Result panel 197 (unknown) (no date) (unknown) (unknown) > 60 ml/min (unkn own) (unknown) (no date) (unknown) (unknown) > 60 ml/min (unkn own) (unknown) (no date) (unknown) (unknown) 0.64 mg/dl (unkn own) (unknown) (no date) (unknown) (unknown) 0.7 mg/dl (unkn own) (unknown) (no date) (unknown) (unknown) 1.4 (units unknown) (unknown) (unknown) (no date) (unknown) (unknown) 100 mg/dl (unkn own) (unknown) (no date) (unknown) (unknown) 100 mg/dl (unkn own) (unknown) (no date) (unknown) (unknown) 102 mmol/l (unkn own) (unknown) (no date) (unknown) (unknown) 113 mg/dl (unkn own) (unknown) (no date) (unknown) (unknown) 113 mg/dl (unkn own) (unknown) (no date) (unknown) (unknown) 13 mg/dl (unkn own) (unknown) (no date) (unknown) (unknown) 141 mmol/l (unkn own) (unknown) (no date) (unknown) (unknown) 20.3 (units unknown) (unknown) (unknown) (no date) (unknown) (unknown) 27 mmol/l (unkn own) (unknown) (no date) (unknown) (unknown) 29 iu/l (unkn own) (unknown) (no date) (unknown) (unknown) 3.1 g/dl (unkn own) (unknown) (no date) (unknown) (unknown) 3.9 mmol/l (unkn own) (unknown) (no date) (unknown) (unknown) 33 iu/l (unkn own) (unknown) (no date) (unknown) (unknown) 34 u/l (unkn own) (unknown) (no date) (unknown) (unknown) 4.4 g/dl (unkn own) (unknown) (no date) (unknown) (unknown) 48 mg/dl (unkn own) (unknown) (no date) (unknown) (unknown) 48 mg/dl (unkn own) (unknown) (no date) (unknown) (unknown) 51 mg/dl (unkn own) (unknown) (no date) (unknown) (unknown) 51 mg/dl (unkn own) (unknown) (no date) (unknown) (unknown) 7.5 g/dl (unkn own) (unknown) (no date) (unknown) (unknown) 72 mg/dl (unkn own) (unknown) (no date) (unknown) (unknown) 72 mg/dl (unkn own) (unknown) (no date) (unknown) (unknown) 8.8 mg/dl (unkn own) (unknown) (no date) (unknown) (unknown) 84 u/l (unkn own) Result panel 198 (unknown) (no (unknown) (unknown) (no value) (units (unk nown) date) unknown) (unknown) (no (unknown) (unknown) [id number] (units (unkno wn) date) unknown) (unknown) (no (unknown) (unknown) 01/06/23 (units (unkno wn) date) unknown) (unknown) (no (unknown) (unknown) 01/06/23] (units (unkn own) date) unknown) (unknown) (no (unknown) (unknown) 15:18 (units (unkno wn) date) unknown) (unknown) (no (unknown) (unknown) Age at menarche: (units (unknown) date) 10 unknown) (unknown) (no (unknown) (unknown) Age when first (units (unknown) date) child born?: 20 unknown) (unknown) (no (unknown) (unknown) Age/Sex: 32 / F (units (unknown) date) Date of Service: unknown) (unknown) (no (unknown) (unknown) Allergies (units (unkn own) date) unknown) (unknown) (no (unknown) (unknown) [place], [place] (units ( unknown) date) [id number] unknown) (unknown) (no (unknown) (unknown) Anemia (-2017) (units (unknown) date) unknown) (unknown) (no (unknown) (unknown) Anxiety (units (unkno wn) date) (07/09/16) unknown) (unknown) (no (unknown) (unknown) Anxiety (units (unkno wn) date) unknown) (unknown) (no (unknown) (unknown) Attending Dr: (units ( unknown) date) Nimesh Conde MD unknown) (unknown) (no (unknown) (unknown) BMI 37.5 (units (unkno wn) date) unknown) (unknown) (no (unknown) (unknown) BP 110/70 (units (unkn own) date) unknown) (unknown) (no (unknown) (unknown) Biliary colic (units ( unknown) date) unknown) (unknown) (no (unknown) (unknown) Blood Pressure (units (unknown) date) Location Lt unknown) brachial (unknown) (no (unknown) (unknown) Cholelithiasis (units (unknown) date) unknown) (unknown) (no (unknown) (unknown) Chronic headaches (units (unknown) date) unknown) (unknown) (no (unknown) (unknown) Confirmed (units (unkn own) date) 01/06/23] unknown) (unknown) (no (unknown) (unknown) : 1990 (units (unknown) date) Acct:[id number] unknown) (unknown) (no (unknown) (unknown) Date of Last (units (u nknown) date) Menstrual Period: unknown) 01/04/23 (unknown) (no (unknown) (unknown) Dept at (units (unkno wn) date) . unknown) (unknown) (no (unknown) (unknown) Did you breast (units (unknown) date) feed?: Yes unknown) (unknown) (no (unknown) (unknown) Documented By: (units (unknown) date) Nimesh Conde MD unknown) 01/06/23 1517 (unknown) (no (unknown) (unknown) Draft (units (unkno wn) date) unknown) (unknown) (no (unknown) (unknown) Dysthymia (units (unkn own) date) (07/09/16) unknown) (unknown) (no (unknown) (unknown) Exposure to (units (un known) date) hepatitis B unknown) (-2015) (unknown) (no (unknown) (unknown) Family History (units (unknown) date) (Reviewed 01/06/23 unknown) @ 15:19 by Maira Doyle RN) (unknown) (no (unknown) (unknown) Father (units (unknown) date) Myocardial unknown) infarction (unknown) (no (unknown) (unknown) Grandfather (units (un known) date) Unknown unknown) whether patient has any health problems (unknown) (no (unknown) (unknown) Grandmother (units (un known) date) Twins, unknown) both liveborn (unknown) (no (unknown) (unknown) Grandmother (units (un known) date) Unknown unknown) whether patient has any health problems (unknown) (no (unknown) (unknown) : 3 (units (unk nown) date) unknown) (unknown) (no (unknown) (unknown) H/O (units (u nknown) date) section unknown) complicating (unknown) (no (unknown) (unknown) H/O wisdom tooth (units (unknown) date) extraction () unknown) (unknown) (no (unknown) (unknown) Height 5 ft 5 in (units (unknown) date) unknown) (unknown) (no (unknown) (unknown) History of (units (unk nown) date) primary unknown) section (-03/05/13) (unknown) (no (unknown) (unknown) Intake Clinical (units (unknown) date) Staff unknown) (unknown) (no (unknown) (unknown) Intake performed (units (unknown) date) by: Maira Doyle unknown) (unknown) (no (unknown) (unknown) Intake (units (unkno wn) date) unknown) (unknown) (no (unknown) (unknown) Is patient in (units ( unknown) date) pain?: Yes unknown) (unknown) (no (unknown) (unknown) [facility] (units (unknown) date) unknown) (unknown) (no (unknown) (unknown) Loc: [facility] (units (unkno wn) date) unknown) (unknown) (no (unknown) (unknown) Medical History (units (unknown) date) (Reviewed 01/06/23 unknown) @ 15:19 by Maira Doyle RN) (unknown) (no (unknown) (unknown) Medications (units (un known) date) unknown) (unknown) (no (unknown) (unknown) Mother Diabetes (units (unknown) date) mellitus unknown) (unknown) (no (unknown) (unknown) No Known Drug (units ( unknown) date) Allergies Allergy unknown) (Unknown, Verified 01/06/23 15:17) (unknown) (no (unknown) (unknown) SHUTDOWN COORDINATOR and Breast (units (unknown) date) History unknown) (unknown) (no (unknown) (unknown) Obesity (BMI (units (u nknown) date) 35.0-39.9 without unknown) comorbidity) (unknown) (no (unknown) (unknown) Occipital (units (unkn own) date) neuralgia unknown) (unknown) (no (unknown) (unknown) Osteomyelitis (units ( unknown) date) (-1999) unknown) (unknown) (no (unknown) (unknown) Oxygen Delivery (units (unknown) date) Method room air unknown) (unknown) (no (unknown) (unknown) PFSH (units (unkno wn) date) unknown) (unknown) (no (unknown) (unknown) Pain Location (units ( unknown) date) unknown) (unknown) (no (unknown) (unknown) Pain Scale (units (unk nown) date) unknown) (unknown) (no (unknown) (unknown) Pain (units (unkno wn) date) location(s):: 12/03 unknown) (unknown) (no (unknown) (unknown) Para: 3 (units (unkno wn) date) unknown) (unknown) (no (unknown) (unknown) Patient: (units (unkno wn) date) Bernie Rodriguez unknown) MR#: [id number] (unknown) (no (unknown) (unknown) Position Sitting (units (unknown) date) unknown) (unknown) (no (unknown) (unknown) Pulse 86 (units (unkno wn) date) unknown) (unknown) (no (unknown) (unknown) Pulse Oximetry (units (unknown) date) (%) 99 unknown) (unknown) (no (unknown) (unknown) Pulse Source (units (u nknown) date) Monitor unknown) (unknown) (no (unknown) (unknown) Reason For Visit (units (unknown) date) unknown) (unknown) (no (unknown) (unknown) Rh negative state (units (unknown) date) in antepartum unknown) period (unknown) (no (unknown) (unknown) Signed By: (units (unk nown) date) unknown) (unknown) (no (unknown) (unknown) Sister Depression (units (unknown) date) unknown) (unknown) (no (unknown) (unknown) Sister (units (unkno wn) date) Hypoglycemic unknown) disorder (unknown) (no (unknown) (unknown) Smoking Status: (units (unknown) date) Never smoker unknown) (unknown) (no (unknown) (unknown) Social History (units (unknown) date) (Reviewed 01/06/23 unknown) @ 15:19 by Maira Doyle RN) (unknown) (no (unknown) (unknown) Status post (units (un known) date) delivery unknown) (04/10/17) (unknown) (no (unknown) (unknown) Status post (units (un known) date) cholecystectomy unknown) (2017) (unknown) (no (unknown) (unknown) Status post (units (un known) date) incision and unknown) drainage (-1999) (unknown) (no (unknown) (unknown) Surgery Office (units (unknown) date) Visit unknown) (unknown) (no (unknown) (unknown) Surgical History (units (unknown) date) (Reviewed 01/06/23 unknown) @ 15:19 by Maira Doyle RN) (unknown) (no (unknown) (unknown) Temp 98.6 F (units (un known) date) unknown) (unknown) (no (unknown) (unknown) Temp Source (units (un known) date) Temporal Artery unknown) Scan (unknown) (no (unknown) (unknown) This note may (units ( unknown) date) have been all or unknown) partially generated using voice recognition (unknown) (no (unknown) (unknown) Tobacco Status (units (unknown) date) unknown) (unknown) (no (unknown) (unknown) 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 (units (unknown) date) EGD eval ref by unknown) Salari (unknown) (no (unknown) (unknown) Vitals (units (unkno wn) date) unknown) (unknown) (no (unknown) (unknown) Weight 226 lb (units ( unknown) date) unknown) (unknown) (no (unknown) (unknown) alcohol intake: (units (unknown) date) former unknown) (pre- : 'once in a while') (unknown) (no (unknown) (unknown) blood sugar (units (un known) date) diagnostic (True unknown) Metrix Glucose Test Strip) #50 ea 01/01/23 [Rx (unknown) (no (unknown) (unknown) blood-glucose (units ( unknown) date) meter (Blood unknown) Glucose Monitoring kit) #1 ea 01/01/23 [Rx Confirmed (unknown) (no (unknown) (unknown) caregiver/support (units (unknown) date) person: No unknown) (unknown) (no (unknown) (unknown) current (units (unkno wn) date) occupational unknown) exposures/hazards: No (unknown) (no (unknown) (unknown) education level: (units (unknown) date) college ([place] in [place] unknown) needs to re-do to work here in [place]) (unknown) (no (unknown) (unknown) matilde/spiritism: (units (unknown) date) Gnosticist unknown) (unknown) (no (unknown) (unknown) have occurred. If (units (unknown) date) there are any unknown) questions, please contact the Medical Records (unknown) (no (unknown) (unknown) household (units (unkn own) date) members: spouse unknown) and family (unknown) (no (unknown) (unknown) housing: house (units (unknown) date) unknown) (unknown) (no (unknown) (unknown) ibuprofen 600 mg (units (unknown) date) tablet 600 mg PO unknown) Q6H PRN pain or cramping #30 tabs 03/20/21 [Rx (unknown) (no (unknown) (unknown) lancets #100 ea (units (unknown) date) 01/09/22 [Rx unknown) Confirmed 01/06/23] (unknown) (no (unknown) (unknown) lives (units (unkno wn) date) independently: Yes unknown) (unknown) (no (unknown) (unknown) marital status: (units (unknown) date) unknown) (unknown) (no (unknown) (unknown) may occur. 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 Please (unknown) (no (unknown) (unknown) omeprazole 20 mg (units (unknown) date) capsule,delayed unknown) release 20 mg PO DAILY #90 caps 01/01/23 [Rx (unknown) (no (unknown) (unknown) ondansetron 4 mg (units (unknown) date) disintegrating unknown) tablet 4 mg PO Q8H PRN nausea and vomiting #14 (unknown) (no (unknown) (unknown) pets and animals: (units (unknown) date) Yes (X dog) unknown) (unknown) (no (unknown) (unknown) read the note (units ( unknown) date) carefully and unknown) recognize, using context, where these substitutions (unknown) (no (unknown) (unknown) second hand (units (un known) date) exposure: No unknown) (unknown) (no (unknown) (unknown) software. 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 errors (unknown) (no (unknown) (unknown) special matilde (units ( unknown) date) needs: No unknown) (unknown) (no (unknown) (unknown) substance use (units ( unknown) date) type: does not use unknown) (unknown) (no (unknown) (unknown) tabs 03/20/22 [Rx (units (unknown) date) Confirmed unknown) 01/06/23] (unknown) (no (unknown) (unknown) tramadol 50 mg (units (unknown) date) tablet 50 mg PO unknown) Q8H PRN pain #20 tabs 06/14/22 [Rx Confirmed Result panel 199 (unknown) (no (unknown) (unknown) (no value) (units (unk nown) date) unknown) (unknown) (no (unknown) (unknown) [id number] (units (unkno wn) date) unknown) (unknown) (no (unknown) (unknown) 01/06/23 (units (unkno wn) date) unknown) (unknown) (no (unknown) (unknown) 01/06/23] (units (unkn own) date) unknown) (unknown) (no (unknown) (unknown) 15:18 (units (unkno wn) date) unknown) (unknown) (no (unknown) (unknown) Age at menarche: (units (unknown) date) 10 unknown) (unknown) (no (unknown) (unknown) Age when first (units (unknown) date) child born?: 20 unknown) (unknown) (no (unknown) (unknown) Age/Sex: 32 / F (units (unknown) date) Date of Service: unknown) (unknown) (no (unknown) (unknown) Allergies (units (unkn own) date) unknown) (unknown) (no (unknown) (unknown) [place], [place] (units ( unknown) date) [id number] unknown) (unknown) (no (unknown) (unknown) Anemia (-2017) (units (unknown) date) unknown) (unknown) (no (unknown) (unknown) Anxiety (units (unkno wn) date) (07/09/16) unknown) (unknown) (no (unknown) (unknown) Anxiety (units (unkno wn) date) unknown) (unknown) (no (unknown) (unknown) Attending Dr: (units ( unknown) date) Nimesh Conde MD unknown) (unknown) (no (unknown) (unknown) BMI 37.5 (units (unkno wn) date) unknown) (unknown) (no (unknown) (unknown) BP 110/70 (units (unkn own) date) unknown) (unknown) (no (unknown) (unknown) Biliary colic (units ( unknown) date) unknown) (unknown) (no (unknown) (unknown) Blood Pressure (units (unknown) date) Location Lt unknown) brachial (unknown) (no (unknown) (unknown) Chief Complaint (units (unknown) date) unknown) (unknown) (no (unknown) (unknown) Chief Complaint: (units (unknown) date) Dysphagia and unknown) abdominal discomfort. (unknown) (no (unknown) (unknown) Cholelithiasis (units (unknown) date) unknown) (unknown) (no (unknown) (unknown) Chronic headaches (units (unknown) date) unknown) (unknown) (no (unknown) (unknown) Confirmed (units (unkn own) date) 01/06/23] unknown) (unknown) (no (unknown) (unknown) : 1990 (units (unknown) date) Acct:[id number] unknown) (unknown) (no (unknown) (unknown) Date of Last (units (u nknown) date) Menstrual Period: unknown) 01/04/23 (unknown) (no (unknown) (unknown) Dept at (units (unkno wn) date) . unknown) (unknown) (no (unknown) (unknown) Details: (units (unkno wn) date) unknown) (unknown) (no (unknown) (unknown) Did you breast (units (unknown) date) feed?: Yes unknown) (unknown) (no (unknown) (unknown) Documented By: (units (unknown) date) Nimesh Conde MD unknown) 01/06/23 1517 (unknown) (no (unknown) (unknown) Draft (units (unkno wn) date) unknown) (unknown) (no (unknown) (unknown) Dysthymia (units (unkn own) date) (07/09/16) unknown) (unknown) (no (unknown) (unknown) Exposure to (units (un known) date) hepatitis B unknown) (-2015) (unknown) (no (unknown) (unknown) Family History (units (unknown) date) (Reviewed 01/06/23 unknown) @ 15:19 by Maira Doyle RN) (unknown) (no (unknown) (unknown) Father (units (unknown) date) Myocardial unknown) infarction (unknown) (no (unknown) (unknown) Grandfather (units (un known) date) Unknown unknown) whether patient has any health problems (unknown) (no (unknown) (unknown) Grandmother (units (un known) date) Twins, unknown) both liveborn (unknown) (no (unknown) (unknown) Grandmother (units (un known) date) Unknown unknown) whether patient has any health problems (unknown) (no (unknown) (unknown) : 3 (units (unk nown) date) unknown) (unknown) (no (unknown) (unknown) H/O (units (u nknown) date) section unknown) complicating (unknown) (no (unknown) (unknown) H/O wisdom tooth (units (unknown) date) extraction () unknown) (unknown) (no (unknown) (unknown) HPI (units (unkno wn) date) unknown) (unknown) (no (unknown) (unknown) Height 5 ft 5 in (units (unknown) date) unknown) (unknown) (no (unknown) (unknown) History of (units (unk nown) date) primary unknown) section (-03/05/13) (unknown) (no (unknown) (unknown) Intake Clinical (units (unknown) date) Staff unknown) (unknown) (no (unknown) (unknown) Intake performed (units (unknown) date) by: Maira Doyle unknown) (unknown) (no (unknown) (unknown) Intake (units (unkno wn) date) unknown) (unknown) (no (unknown) (unknown) Is patient in (units ( unknown) date) pain?: Yes unknown) (unknown) (no (unknown) (unknown) [facility] (units (unknown) date) unknown) (unknown) (no (unknown) (unknown) Loc: [facility] (units (unkno wn) date) unknown) (unknown) (no (unknown) (unknown) Medical History (units (unknown) date) (Reviewed 01/06/23 unknown) @ 15:19 by Maira Doyle RN) (unknown) (no (unknown) (unknown) Medications (units (un known) date) unknown) (unknown) (no (unknown) (unknown) Mother Diabetes (units (unknown) date) mellitus unknown) (unknown) (no (unknown) (unknown) No Known Drug (units ( unknown) date) Allergies Allergy unknown) (Unknown, Verified 01/06/23 15:17) (unknown) (no (unknown) (unknown) SHUTDOWN COORDINATOR and Breast (units (unknown) date) History unknown) (unknown) (no (unknown) (unknown) Obesity (BMI (units (u nknown) date) 35.0-39.9 without unknown) comorbidity) (unknown) (no (unknown) (unknown) Occipital (units (unkn own) date) neuralgia unknown) (unknown) (no (unknown) (unknown) Osteomyelitis (units ( unknown) date) (-1999) unknown) (unknown) (no (unknown) (unknown) Oxygen Delivery (units (unknown) date) Method room air unknown) (unknown) (no (unknown) (unknown) PFSH (units (unkno wn) date) unknown) (unknown) (no (unknown) (unknown) Pain Location (units ( unknown) date) unknown) (unknown) (no (unknown) (unknown) Pain Scale (units (unk nown) date) unknown) (unknown) (no (unknown) (unknown) Pain (units (unkno wn) date) location(s):: 12/03 unknown) (unknown) (no (unknown) (unknown) Para: 3 (units (unkno wn) date) unknown) (unknown) (no (unknown) (unknown) Patient: (units (unkno wn) date) Bernie Rodriguez unknown) MR#: [id number] (unknown) (no (unknown) (unknown) Position Sitting (units (unknown) date) unknown) (unknown) (no (unknown) (unknown) Pulse 86 (units (unkno wn) date) unknown) (unknown) (no (unknown) (unknown) Pulse Oximetry (units (unknown) date) (%) 99 unknown) (unknown) (no (unknown) (unknown) Pulse Source (units (u nknown) date) Monitor unknown) (unknown) (no (unknown) (unknown) Reason For Visit (units (unknown) date) unknown) (unknown) (no (unknown) (unknown) Blanca is a (units (unk nown) date) 32-year-old woman unknown) who presents with dysphagia and abdominal (unknown) (no (unknown) (unknown) Rh negative state (units (unknown) date) in antepartum unknown) period (unknown) (no (unknown) (unknown) Signed By: (units (unk nown) date) unknown) (unknown) (no (unknown) (unknown) Sister Depression (units (unknown) date) unknown) (unknown) (no (unknown) (unknown) Sister (units (unkno wn) date) Hypoglycemic unknown) disorder (unknown) (no (unknown) (unknown) Smoking Status: (units (unknown) date) Never smoker unknown) (unknown) (no (unknown) (unknown) Social History (units (unknown) date) (Reviewed 01/06/23 unknown) @ 15:19 by Maira Doyle RN) (unknown) (no (unknown) (unknown) Status post (units (un known) date) delivery unknown) (04/10/17) (unknown) (no (unknown) (unknown) Status post (units (un known) date) cholecystectomy unknown) (2017) (unknown) (no (unknown) (unknown) Status post (units (un known) date) incision and unknown) drainage (-1999) (unknown) (no (unknown) (unknown) Surgery Office (units (unknown) date) Visit unknown) (unknown) (no (unknown) (unknown) Surgical History (units (unknown) date) (Reviewed 01/06/23 unknown) @ 15:19 by Maira Doyle RN) (unknown) (no (unknown) (unknown) Temp 98.6 F (units (un known) date) unknown) (unknown) (no (unknown) (unknown) Temp Source (units (un known) date) Temporal Artery unknown) Scan (unknown) (no (unknown) (unknown) This note may (units ( unknown) date) have been all or unknown) partially generated using voice recognition (unknown) (no (unknown) (unknown) Tobacco Status (units (unknown) date) unknown) (unknown) (no (unknown) (unknown) 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 (units (unknown) date) EGD eval ref by unknown) Israelari (unknown) (no (unknown) (unknown) Vitals (units (unkno wn) date) unknown) (unknown) (no (unknown) (unknown) Weight 226 lb (units ( unknown) date) unknown) (unknown) (no (unknown) (unknown) alcohol intake: (units (unknown) date) former unknown) (pre- : 'once in a while') (unknown) (no (unknown) (unknown) blood sugar (units (un known) date) diagnostic (True unknown) Metrix Glucose Test Strip) #50 ea 01/01/23 [Rx (unknown) (no (unknown) (unknown) blood-glucose (units ( unknown) date) meter (Blood unknown) Glucose Monitoring kit) #1 ea 01/01/23 [Rx Confirmed (unknown) (no (unknown) (unknown) caregiver/support (units (unknown) date) person: No unknown) (unknown) (no (unknown) (unknown) current (units (unkno wn) date) occupational unknown) exposures/hazards: No (unknown) (no (unknown) (unknown) discomfort. She (units (unknown) date) thinks that these unknown) symptoms have been going on for about 6 (unknown) (no (unknown) (unknown) education level: (units (unknown) date) college ([place] in [place] unknown) needs to re-do to work here in [place]) (unknown) (no (unknown) (unknown) matilde/spiritism: (units (unknown) date) Gnosticist unknown) (unknown) (no (unknown) (unknown) have occurred. If (units (unknown) date) there are any unknown) questions, please contact the Medical Records (unknown) (no (unknown) (unknown) household (units (unkn own) date) members: spouse unknown) and family (unknown) (no (unknown) (unknown) housing: house (units (unknown) date) unknown) (unknown) (no (unknown) (unknown) ibuprofen 600 mg (units (unknown) date) tablet 600 mg PO unknown) Q6H PRN pain or cramping #30 tabs 03/20/21 [Rx (unknown) (no (unknown) (unknown) lancets #100 ea (units (unknown) date) 01/09/22 [Rx unknown) Confirmed 01/06/23] (unknown) (no (unknown) (unknown) lives (units (unkno wn) date) independently: Yes unknown) (unknown) (no (unknown) (unknown) marital status: (units (unknown) date) unknown) (unknown) (no (unknown) (unknown) may occur. (units (unk nown) date) Occasional unknown) wrong-word or 'sound-alike' substitutions may have (unknown) (no (unknown) (unknown) meclizine 25 mg (units (unknown) date) tablet 25 mg PO unknown) BID PRN dizziness #14 tabs 03/20/22 [Rx (unknown) (no (unknown) (unknown) months. She had (units (unknown) date) her gallbladder unknown) removed about a year ago. 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 Please (unknown) (no (unknown) (unknown) omeprazole 20 mg (units (unknown) date) capsule,delayed unknown) release 20 mg PO DAILY #90 caps 01/01/23 [Rx (unknown) (no (unknown) (unknown) ondansetron 4 mg (units (unknown) date) disintegrating unknown) tablet 4 mg PO Q8H PRN nausea and vomiting #14 (unknown) (no (unknown) (unknown) pets and animals: (units (unknown) date) Yes (X dog) unknown) (unknown) (no (unknown) (unknown) read the note (units ( unknown) date) carefully and unknown) recognize, using context, where these substitutions (unknown) (no (unknown) (unknown) second hand (units (un known) date) exposure: No unknown) (unknown) (no (unknown) (unknown) software. 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 errors (unknown) (no (unknown) (unknown) special matilde (units ( unknown) date) needs: No unknown) (unknown) (no (unknown) (unknown) substance use (units ( unknown) date) type: does not use unknown) (unknown) (no (unknown) (unknown) tabs 03/20/22 [Rx (units (unknown) date) Confirmed unknown) 01/06/23] (unknown) (no (unknown) (unknown) tramadol 50 mg (units (unknown) date) tablet 50 mg PO unknown) Q8H PRN pain #20 tabs 06/14/22 [Rx Confirmed Result panel 200 (unknown) (no (unknown) (unknown) (no value) (units (unk nown) date) unknown) (unknown) (no (unknown) (unknown) (1) Dysphagia: (units (unknown) date) unknown) (unknown) (no (unknown) (unknown) (2) Melena: (units (un known) date) unknown) (unknown) (no (unknown) (unknown) [id number] (units (unkno wn) date) unknown) (unknown) (no (unknown) (unknown) 01/06/23 (units (unkno wn) date) unknown) (unknown) (no (unknown) (unknown) 01/06/23] (units (unkn own) date) unknown) (unknown) (no (unknown) (unknown) 15:18 (units (unkno wn) date) unknown) (unknown) (no (unknown) (unknown) Abdomen soft, (units ( unknown) date) nontender unknown) nondistended (unknown) (no (unknown) (unknown) Age at menarche: (units (unknown) date) 10 unknown) (unknown) (no (unknown) (unknown) Age when first (units (unknown) date) child born?: [birth year] unknown) (unknown) (no (unknown) (unknown) Age/Sex: 32 / F (units (unknown) date) Date of Service: unknown) (unknown) (no (unknown) (unknown) Allergies (units (unkn own) date) unknown) (unknown) (no (unknown) (unknown) [place], [place] (units ( unknown) date) [id number] unknown) (unknown) (no (unknown) (unknown) Anemia (-2017) (units (unknown) date) unknown) (unknown) (no (unknown) (unknown) Anxiety (units (unkno wn) date) (07/09/16) unknown) (unknown) (no (unknown) (unknown) Anxiety (units (unkno wn) date) unknown) (unknown) (no (unknown) (unknown) Assessment + Plan (units (unknown) date) unknown) (unknown) (no (unknown) (unknown) Attending Dr: (units ( unknown) date) Nimesh Conde MD unknown) (unknown) (no (unknown) (unknown) BMI 37.5 (units (unkno wn) date) unknown) (unknown) (no (unknown) (unknown) BP 110/70 (units (unkn own) date) unknown) (unknown) (no (unknown) (unknown) Biliary colic (units ( unknown) date) unknown) (unknown) (no (unknown) (unknown) Blood Pressure (units (unknown) date) Location Lt unknown) brachial (unknown) (no (unknown) (unknown) Chief Complaint (units (unknown) date) unknown) (unknown) (no (unknown) (unknown) Chief Complaint: (units (unknown) date) Dysphagia and unknown) abdominal discomfort. (unknown) (no (unknown) (unknown) Cholelithiasis (units (unknown) date) unknown) (unknown) (no (unknown) (unknown) Chronic headaches (units (unknown) date) unknown) (unknown) (no (unknown) (unknown) Confirmed (units (unkn own) date) 01/06/23] unknown) (unknown) (no (unknown) (unknown) : 1990 (units (unknown) date) Acct:[id number] unknown) (unknown) (no (unknown) (unknown) Date of Last (units (u nknown) date) Menstrual Period: unknown) 01/04/23 (unknown) (no (unknown) (unknown) Dept at (units (unkno wn) date) . unknown) (unknown) (no (unknown) (unknown) Details: (units (unkno wn) date) unknown) (unknown) (no (unknown) (unknown) Did you breast (units (unknown) date) feed?: Yes unknown) (unknown) (no (unknown) (unknown) Documented By: (units (unknown) date) Nimesh Conde MD unknown) 01/06/23 1517 (unknown) (no (unknown) (unknown) Draft (units (unkno wn) date) unknown) (unknown) (no (unknown) (unknown) Dysphagia type: (units (unknown) date) oropharyngeal unknown) phase Qualified Code(s): R13.12 (unknown) (no (unknown) (unknown) Dysphagia, (units (unk nown) date) oropharyngeal unknown) phase (unknown) (no (unknown) (unknown) Dysthymia (units (unkn own) date) (07/09/16) unknown) (unknown) (no (unknown) (unknown) Exam Narrative (units (unknown) date) unknown) (unknown) (no (unknown) (unknown) Exam Narrative: (units (unknown) date) unknown) (unknown) (no (unknown) (unknown) Exam (units (unkno wn) date) unknown) (unknown) (no (unknown) (unknown) Exposure to (units (un known) date) hepatitis B unknown) (-2016) (unknown) (no (unknown) (unknown) Family History (units (unknown) date) (Reviewed 01/06/23 unknown) @ 15:19 by Maira Doyle RN) (unknown) (no (unknown) (unknown) Father (units (unknown) date) Myocardial unknown) infarction (unknown) (no (unknown) (unknown) Grandfather (units (un known) date) Unknown unknown) whether patient has any health problems (unknown) (no (unknown) (unknown) Grandmother (units (un known) date) Twins, unknown) both liveborn (unknown) (no (unknown) (unknown) Grandmother (units (un known) date) Unknown unknown) whether patient has any health problems (unknown) (no (unknown) (unknown) : 3 (units (unk nown) date) unknown) (unknown) (no (unknown) (unknown) H/O (units (u nknown) date) section unknown) complicating (unknown) (no (unknown) (unknown) H/O wisdom tooth (units (unknown) date) extraction () unknown) (unknown) (no (unknown) (unknown) HPI (units (unkno wn) date) unknown) (unknown) (no (unknown) (unknown) Height 5 ft 5 in (units (unknown) date) unknown) (unknown) (no (unknown) (unknown) History of (units (unk nown) date) primary unknown) section (-03/05/13) (unknown) (no (unknown) (unknown) I expressed my (units (unknown) date) opinion that unknown) (unknown) (no (unknown) (unknown) Intake Clinical (units (unknown) date) Staff unknown) (unknown) (no (unknown) (unknown) Intake performed (units (unknown) date) by: Maira Doyle unknown) (unknown) (no (unknown) (unknown) Intake (units (unkno wn) date) unknown) (unknown) (no (unknown) (unknown) Is patient in (units ( unknown) date) pain?: Yes unknown) (unknown) (no (unknown) (unknown) [facility] (units (unknown) date) unknown) (unknown) (no (unknown) (unknown) Loc: [facility] (units (unkno wn) date) unknown) (unknown) (no (unknown) (unknown) Medical History (units (unknown) date) (Reviewed 01/06/23 unknown) @ 15:19 by Maira Doyle RN) (unknown) (no (unknown) (unknown) Medications (units (un known) date) unknown) (unknown) (no (unknown) (unknown) Mother Diabetes (units (unknown) date) mellitus unknown) (unknown) (no (unknown) (unknown) No Known Drug (units ( unknown) date) Allergies Allergy unknown) (Unknown, Verified 01/06/23 15:17) (unknown) (no (unknown) (unknown) SHUTDOWN COORDINATOR and Breast (units (unknown) date) History unknown) (unknown) (no (unknown) (unknown) Obesity (BMI (units (u nknown) date) 35.0-39.9 without unknown) comorbidity) (unknown) (no (unknown) (unknown) Occipital (units (unkn own) date) neuralgia unknown) (unknown) (no (unknown) (unknown) Osteomyelitis (units ( unknown) date) (-1999) unknown) (unknown) (no (unknown) (unknown) Oxygen Delivery (units (unknown) date) Method room air unknown) (unknown) (no (unknown) (unknown) PFSH (units (unkno wn) date) unknown) (unknown) (no (unknown) (unknown) Pain Location (units ( unknown) date) unknown) (unknown) (no (unknown) (unknown) Pain Scale (units (unk nown) date) unknown) (unknown) (no (unknown) (unknown) Pain (units (unkno wn) date) location(s):: 12/03 unknown) (unknown) (no (unknown) (unknown) Para: 3 (units (unkno wn) date) unknown) (unknown) (no (unknown) (unknown) Patient: (units (unkno wn) date) Bernie Rodriguez M unknown) MR#: [id number] (unknown) (no (unknown) (unknown) Plan (units (unkno wn) date) unknown) (unknown) (no (unknown) (unknown) Position Sitting (units (unknown) date) unknown) (unknown) (no (unknown) (unknown) Pulse 86 (units (unkno wn) date) unknown) (unknown) (no (unknown) (unknown) Pulse Oximetry (units (unknown) date) (%) 99 unknown) (unknown) (no (unknown) (unknown) Pulse Source (units (u nknown) date) Monitor unknown) (unknown) (no (unknown) (unknown) Qualifiers: (units (un known) date) unknown) (unknown) (no (unknown) (unknown) Reason For Visit (units (unknown) date) unknown) (unknown) (no (unknown) (unknown) Blanca is a (units (unk nown) date) 32-year-old woman unknown) who presents with dysphagia and abdominal (unknown) (no (unknown) (unknown) Rh negative state (units (unknown) date) in antepartum unknown) period (unknown) (no (unknown) (unknown) Signed By: (units (unk nown) date) unknown) (unknown) (no (unknown) (unknown) Sister Depression (units (unknown) date) unknown) (unknown) (no (unknown) (unknown) Sister (units (unkno wn) date) Hypoglycemic unknown) disorder (unknown) (no (unknown) (unknown) Smoking Status: (units (unknown) date) Never smoker unknown) (unknown) (no (unknown) (unknown) Social History (units (unknown) date) (Reviewed 01/06/23 unknown) @ 15:19 by Maira Doyle RN) (unknown) (no (unknown) (unknown) Status post (units (un known) date) delivery unknown) (04/10/17) (unknown) (no (unknown) (unknown) Status post (units (un known) date) cholecystectomy unknown) (2017) (unknown) (no (unknown) (unknown) Status post (units (un known) date) incision and unknown) drainage (-1999) (unknown) (no (unknown) (unknown) Status: Acute (units ( unknown) date) unknown) (unknown) (no (unknown) (unknown) Surgery Office (units (unknown) date) Visit unknown) (unknown) (no (unknown) (unknown) Surgical History (units (unknown) date) (Reviewed 01/06/23 unknown) @ 15:19 by Maira Doyle RN) (unknown) (no (unknown) (unknown) Temp 98.6 F (units (un known) date) unknown) (unknown) (no (unknown) (unknown) Temp Source (units (un known) date) Temporal Artery unknown) Scan (unknown) (no (unknown) (unknown) This note may (units ( unknown) date) have been all or unknown) partially generated using voice recognition (unknown) (no (unknown) (unknown) Tobacco Status (units (unknown) date) unknown) (unknown) (no (unknown) (unknown) 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 She reports abdominal discomfort and a (unknown) (no (unknown) (unknown) alcohol intake: (units (unknown) date) former unknown) (pre- : 'once in a while') (unknown) (no (unknown) (unknown) all mostly in the (units (unknown) date) morning. She also unknown) reports frequent bowel movements especially (unknown) (no (unknown) (unknown) blood sugar (units (un known) date) diagnostic (True unknown) Metrix Glucose Test Strip) #50 ea 01/01/23 [Rx (unknown) (no (unknown) (unknown) blood-glucose (units ( unknown) date) meter (Blood unknown) Glucose Monitoring kit) #1 ea 01/01/23 [Rx Confirmed (unknown) (no (unknown) (unknown) caregiver/support (units (unknown) date) person: No unknown) (unknown) (no (unknown) (unknown) current (units (unkno wn) date) occupational unknown) exposures/hazards: No (unknown) (no (unknown) (unknown) discomfort. She (units (unknown) date) thinks that these unknown) symptoms have been going on for about 6 (unknown) (no (unknown) (unknown) education level: (units (unknown) date) college ([place] in [place] unknown) needs to re-do to work here in [place]) (unknown) (no (unknown) (unknown) matilde/spiritism: (units (unknown) date) Gnosticist unknown) (unknown) (no (unknown) (unknown) feeling that her (units (unknown) date) bowels or twisting unknown) after she eats. She had her gallbladder (unknown) (no (unknown) (unknown) have occurred. If (units (unknown) date) there are any unknown) questions, please contact the Medical Records (unknown) (no (unknown) (unknown) household (units (unkn own) date) members: spouse unknown) and family (unknown) (no (unknown) (unknown) housing: house (units (unknown) date) unknown) (unknown) (no (unknown) (unknown) ibuprofen 600 mg (units (unknown) date) tablet 600 mg PO unknown) Q6H PRN pain or cramping #30 tabs 03/20/21 [Rx (unknown) (no (unknown) (unknown) lancets #100 ea (units (unknown) date) 01/09/22 [Rx unknown) Confirmed 01/06/23] (unknown) (no (unknown) (unknown) lives (units (unkno wn) date) independently: Yes unknown) (unknown) (no (unknown) (unknown) marital status: (units (unknown) date) unknown) (unknown) (no (unknown) (unknown) may occur. (units (unk nown) date) Occasional unknown) wrong-word or 'sound-alike' substitutions may have (unknown) (no (unknown) (unknown) meclizine 25 mg (units (unknown) date) tablet 25 mg PO unknown) BID PRN dizziness #14 tabs 03/20/22 [Rx (unknown) (no (unknown) (unknown) months. 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 Please (unknown) (no (unknown) (unknown) omeprazole 20 mg (units (unknown) date) capsule,delayed unknown) release 20 mg PO DAILY #90 caps 01/01/23 [Rx (unknown) (no (unknown) (unknown) ondansetron 4 mg (units (unknown) date) disintegrating unknown) tablet 4 mg PO Q8H PRN nausea and vomiting #14 (unknown) (no (unknown) (unknown) pets and animals: (units (unknown) date) Yes (X dog) unknown) (unknown) (no (unknown) (unknown) read the note (units ( unknown) date) carefully and unknown) recognize, using context, where these substitutions (unknown) (no (unknown) (unknown) removed several (units (unknown) date) years ago. She had unknown) a baby in the past year. (unknown) (no (unknown) (unknown) second hand (units (un known) date) exposure: No unknown) (unknown) (no (unknown) (unknown) software. 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 errors (unknown) (no (unknown) (unknown) special matilde (units ( unknown) date) needs: No unknown) (unknown) (no (unknown) (unknown) substance use (units ( unknown) date) type: does not use unknown) (unknown) (no (unknown) (unknown) tabs 03/20/22 [Rx (units (unknown) date) Confirmed unknown) 01/06/23] (unknown) (no (unknown) (unknown) tramadol 50 mg (units (unknown) date) tablet 50 mg PO unknown) Q8H PRN pain #20 tabs 06/14/22 [Rx Confirmed Result panel 201 (unknown) (no (unknown) (unknown) (no value) (units (unk nown) date) unknown) (unknown) (no (unknown) (unknown) (1) Dysphagia: (units (unknown) date) unknown) (unknown) (no (unknown) (unknown) (2) Melena: (units (un known) date) unknown) (unknown) (no (unknown) (unknown) [id number] (units (unkno wn) date) unknown) (unknown) (no (unknown) (unknown) 01/06/23 1553 (units ( unknown) date) unknown) (unknown) (no (unknown) (unknown) 01/06/23 (units (unkno wn) date) unknown) (unknown) (no (unknown) (unknown) 01/06/23] (units (unkn own) date) unknown) (unknown) (no (unknown) (unknown) 15:18 (units (unkno wn) date) unknown) (unknown) (no (unknown) (unknown) Abdomen soft, (units ( unknown) date) nontender unknown) nondistended (unknown) (no (unknown) (unknown) Age at menarche: (units (unknown) date) 10 unknown) (unknown) (no (unknown) (unknown) Age when first (units (unknown) date) child born?: 20 unknown) (unknown) (no (unknown) (unknown) Age/Sex: 32 / F (units (unknown) date) Date of Service: unknown) (unknown) (no (unknown) (unknown) Allergies (units (unkn own) date) unknown) (unknown) (no (unknown) (unknown) [place], [place] (units ( unknown) date) [id number] unknown) (unknown) (no (unknown) (unknown) Anemia (-2017) (units (unknown) date) unknown) (unknown) (no (unknown) (unknown) Anxiety (units (unkno wn) date) (07/09/16) unknown) (unknown) (no (unknown) (unknown) Anxiety (units (unkno wn) date) unknown) (unknown) (no (unknown) (unknown) Assessment + Plan (units (unknown) date) unknown) (unknown) (no (unknown) (unknown) Attending Dr: (units ( unknown) date) Nimesh Conde MD unknown) (unknown) (no (unknown) (unknown) BMI 37.5 (units (unkno wn) date) unknown) (unknown) (no (unknown) (unknown) BP 110/70 (units (unkn own) date) unknown) (unknown) (no (unknown) (unknown) Biliary colic (units ( unknown) date) unknown) (unknown) (no (unknown) (unknown) Blood Pressure (units (unknown) date) Location Lt unknown) brachial (unknown) (no (unknown) (unknown) Chief Complaint (units (unknown) date) unknown) (unknown) (no (unknown) (unknown) Chief Complaint: (units (unknown) date) Dysphagia and unknown) abdominal discomfort. (unknown) (no (unknown) (unknown) Cholelithiasis (units (unknown) date) unknown) (unknown) (no (unknown) (unknown) Chronic headaches (units (unknown) date) unknown) (unknown) (no (unknown) (unknown) Confirmed (units (unkn own) date) 01/06/23] unknown) (unknown) (no (unknown) (unknown) Counseling and (units (unknown) date) educating the unknown) patient/family/car egiver: 9 (unknown) (no (unknown) (unknown) : 1990 (units (unknown) date) Acct:[id number] unknown) (unknown) (no (unknown) (unknown) Date of Last (units (u nknown) date) Menstrual Period: unknown) 01/04/23 (unknown) (no (unknown) (unknown) Dept at (units (unkno wn) date) . unknown) (unknown) (no (unknown) (unknown) Details: (units (unkno wn) date) unknown) (unknown) (no (unknown) (unknown) Did you breast (units (unknown) date) feed?: Yes unknown) (unknown) (no (unknown) (unknown) Documented By: (units (unknown) date) Nimesh Conde MD unknown) 01/06/23 1517 (unknown) (no (unknown) (unknown) Documenting (units (un known) date) clinical unknown) information in EHR/Medical record: 8 (unknown) (no (unknown) (unknown) Dysphagia type: (units (unknown) date) oropharyngeal unknown) phase Qualified Code(s): R13.12 (unknown) (no (unknown) (unknown) Dysphagia, (units (unk nown) date) oropharyngeal unknown) phase (unknown) (no (unknown) (unknown) Dysthymia (units (unkn own) date) (07/09/16) unknown) (unknown) (no (unknown) (unknown) Exam Narrative (units (unknown) date) unknown) (unknown) (no (unknown) (unknown) Exam Narrative: (units (unknown) date) unknown) (unknown) (no (unknown) (unknown) Exam (units (unkno wn) date) unknown) (unknown) (no (unknown) (unknown) Exposure to (units (un known) date) hepatitis B unknown) (-2015) (unknown) (no (unknown) (unknown) Family History (units (unknown) date) (Reviewed 01/06/23 unknown) @ 15:19 by Maira Doyle RN) (unknown) (no (unknown) (unknown) Father (units (unknown) date) Myocardial unknown) infarction (unknown) (no (unknown) (unknown) Grandfather (units (un known) date) Unknown unknown) whether patient has any health problems (unknown) (no (unknown) (unknown) Grandmother (units (un known) date) Twins, unknown) both liveborn (unknown) (no (unknown) (unknown) Grandmother (units (un known) date) Unknown unknown) whether patient has any health problems (unknown) (no (unknown) (unknown) : 3 (units (unk nown) date) unknown) (unknown) (no (unknown) (unknown) H/O (units (u nknown) date) section unknown) complicating (unknown) (no (unknown) (unknown) H/O wisdom tooth (units (unknown) date) extraction () unknown) (unknown) (no (unknown) (unknown) HPI (units (unkno wn) date) unknown) (unknown) (no (unknown) (unknown) Height 5 ft 5 in (units (unknown) date) unknown) (unknown) (no (unknown) (unknown) History of (units (unk nown) date) primary unknown) section (-03/05/13) (unknown) (no (unknown) (unknown) I expressed my (units (unknown) date) opinion that her unknown) frequent bowel movements and abdominal (unknown) (no (unknown) (unknown) Intake Clinical (units (unknown) date) Staff unknown) (unknown) (no (unknown) (unknown) Intake performed (units (unknown) date) by: Maira Doyle unknown) (unknown) (no (unknown) (unknown) Intake (units (unkno wn) date) unknown) (unknown) (no (unknown) (unknown) Is patient in (units ( unknown) date) pain?: Yes unknown) (unknown) (no (unknown) (unknown) [facility] (units (unknown) date) unknown) (unknown) (no (unknown) (unknown) Loc: [facility] (units (unkno wn) date) unknown) (unknown) (no (unknown) (unknown) Medical History (units (unknown) date) (Reviewed 01/06/23 unknown) @ 15:19 by Maira Doyle RN) (unknown) (no (unknown) (unknown) Medications (units (un known) date) unknown) (unknown) (no (unknown) (unknown) Mother Diabetes (units (unknown) date) mellitus unknown) (unknown) (no (unknown) (unknown) No Known Drug (units ( unknown) date) Allergies Allergy unknown) (Unknown, Verified 01/06/23 15:17) (unknown) (no (unknown) (unknown) SHUTDOWN COORDINATOR and Breast (units (unknown) date) History unknown) (unknown) (no (unknown) (unknown) Obesity (BMI (units (u nknown) date) 35.0-39.9 without unknown) comorbidity) (unknown) (no (unknown) (unknown) Occipital (units (unkn own) date) neuralgia unknown) (unknown) (no (unknown) (unknown) Osteomyelitis (units ( unknown) date) (-1999) unknown) (unknown) (no (unknown) (unknown) Oxygen Delivery (units (unknown) date) Method room air unknown) (unknown) (no (unknown) (unknown) PFSH (units (unkno wn) date) unknown) (unknown) (no (unknown) (unknown) Pain Location (units ( unknown) date) unknown) (unknown) (no (unknown) (unknown) Pain Scale (units (unk nown) date) unknown) (unknown) (no (unknown) (unknown) Pain (units (unkno wn) date) location(s):: 12/03 unknown) (unknown) (no (unknown) (unknown) Para: 3 (units (unkno wn) date) unknown) (unknown) (no (unknown) (unknown) Patient: (units (unkno wn) date) Bernie Rodriguez M unknown) MR#: [id number] (unknown) (no (unknown) (unknown) Performing a (units (u nknown) date) medically unknown) appropriate exam and/or evaluation: 8 (unknown) (no (unknown) (unknown) Plan (units (unkno wn) date) unknown) (unknown) (no (unknown) (unknown) Position Sitting (units (unknown) date) unknown) (unknown) (no (unknown) (unknown) Preparing to see (units (unknown) date) the patient, i.e., unknown) chart review, review of tests: 9 (unknown) (no (unknown) (unknown) Pulse 86 (units (unkno wn) date) unknown) (unknown) (no (unknown) (unknown) Pulse Oximetry (units (unknown) date) (%) 99 unknown) (unknown) (no (unknown) (unknown) Pulse Source (units (u nknown) date) Monitor unknown) (unknown) (no (unknown) (unknown) Qualifiers: (units (un known) date) unknown) (unknown) (no (unknown) (unknown) Reason For Visit (units (unknown) date) unknown) (unknown) (no (unknown) (unknown) Blanca is a (units (unk nown) date) 32-year-old woman unknown) who presents with dysphagia and abdominal (unknown) (no (unknown) (unknown) Rh negative state (units (unknown) date) in antepartum unknown) period (unknown) (no (unknown) (unknown) Signed By: (units (unk nown) date) <Electronically unknown) signed by Nimesh oCnde MD> (unknown) (no (unknown) (unknown) Signed (units (unkno wn) date) unknown) (unknown) (no (unknown) (unknown) Sister Depression (units (unknown) date) unknown) (unknown) (no (unknown) (unknown) Sister (units (unkno wn) date) Hypoglycemic unknown) disorder (unknown) (no (unknown) (unknown) Smoking Status: (units (unknown) date) Never smoker unknown) (unknown) (no (unknown) (unknown) Social History (units (unknown) date) (Reviewed 01/06/23 unknown) @ 15:19 by Maira Doyle RN) (unknown) (no (unknown) (unknown) Status post (units (un known) date) delivery unknown) (04/10/17) (unknown) (no (unknown) (unknown) Status post (units (un known) date) cholecystectomy unknown) (2017) (unknown) (no (unknown) (unknown) Status post (units (un known) date) incision and unknown) drainage (-1999) (unknown) (no (unknown) (unknown) Status: Acute (units ( unknown) date) unknown) (unknown) (no (unknown) (unknown) Surgery Office (units (unknown) date) Visit unknown) (unknown) (no (unknown) (unknown) Surgical History (units (unknown) date) (Reviewed 01/06/23 unknown) @ 15:19 by Maira Doyle RN) (unknown) (no (unknown) (unknown) Temp 98.6 F (units (un known) date) unknown) (unknown) (no (unknown) (unknown) Temp Source (units (un known) date) Temporal Artery unknown) Scan (unknown) (no (unknown) (unknown) This note may (units ( unknown) date) have been all or unknown) partially generated using voice recognition (unknown) (no (unknown) (unknown) Time Coding (units (un known) date) Minutes Spent: unknown) (must be on same date of service/appointmen t) (unknown) (no (unknown) (unknown) Time Spent (units (unk nown) date) unknown) (unknown) (no (unknown) (unknown) Tobacco Status (units (unknown) date) unknown) (unknown) (no (unknown) (unknown) Total Time: 34 (units (unknown) date) unknown) (unknown) (no (unknown) (unknown) 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 She reports abdominal discomfort and a (unknown) (no (unknown) (unknown) alcohol intake: (units (unknown) date) former unknown) (pre- : 'once in a while') (unknown) (no (unknown) (unknown) all mostly in the (units (unknown) date) morning. She also unknown) reports frequent bowel movements especially (unknown) (no (unknown) (unknown) blood sugar (units (un known) date) diagnostic (True unknown) Metrix Glucose Test Strip) #50 ea 01/01/23 [Rx (unknown) (no (unknown) (unknown) blood-glucose (units ( unknown) date) meter (Blood unknown) Glucose Monitoring kit) #1 ea 01/01/23 [Rx Confirmed (unknown) (no (unknown) (unknown) caregiver/support (units (unknown) date) person: No unknown) (unknown) (no (unknown) (unknown) current (units (unkno wn) date) occupational unknown) exposures/hazards: No (unknown) (no (unknown) (unknown) discomfort could (units (unknown) date) be related to her unknown) past cholecystectomy. Recommended small low (unknown) (no (unknown) (unknown) discomfort. She (units (unknown) date) thinks that these unknown) symptoms have been going on for about 6 (unknown) (no (unknown) (unknown) education level: (units (unknown) date) college ([place] in [place] unknown) needs to re-do to work here in [place]) (unknown) (no (unknown) (unknown) esophagus stomach (units (unknown) date) and colon. I will unknown) take biopsies of any abnormal looking (unknown) (no (unknown) (unknown) matilde/spiritism: (units (unknown) date) Gnosticist unknown) (unknown) (no (unknown) (unknown) fat meals. Her (units (unknown) date) upper GI symptoms unknown) are all most likely related to GERD and also (unknown) (no (unknown) (unknown) feeling that her (units (unknown) date) bowels or twisting unknown) after she eats. She had her gallbladder (unknown) (no (unknown) (unknown) have occurred. If (units (unknown) date) there are any unknown) questions, please contact the Medical Records (unknown) (no (unknown) (unknown) household (units (unkn own) date) members: spouse unknown) and family (unknown) (no (unknown) (unknown) housing: house (units (unknown) date) unknown) (unknown) (no (unknown) (unknown) ibuprofen 600 mg (units (unknown) date) tablet 600 mg PO unknown) Q6H PRN pain or cramping #30 tabs 03/20/21 [Rx (unknown) (no (unknown) (unknown) lancets #100 ea (units (unknown) date) 01/09/22 [Rx unknown) Confirmed 01/06/23] (unknown) (no (unknown) (unknown) lives (units (unkno wn) date) independently: Yes unknown) (unknown) (no (unknown) (unknown) marital status: (units (unknown) date) unknown) (unknown) (no (unknown) (unknown) may occur. (units (unk nown) date) Occasional unknown) wrong-word or 'sound-alike' substitutions may have (unknown) (no (unknown) (unknown) meclizine 25 mg (units (unknown) date) tablet 25 mg PO unknown) BID PRN dizziness #14 tabs 03/20/22 [Rx (unknown) (no (unknown) (unknown) months. 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 Please (unknown) (no (unknown) (unknown) omeprazole 20 mg (units (unknown) date) capsule,delayed unknown) release 20 mg PO DAILY #90 caps 01/01/23 [Rx (unknown) (no (unknown) (unknown) ondansetron 4 mg (units (unknown) date) disintegrating unknown) tablet 4 mg PO Q8H PRN nausea and vomiting #14 (unknown) (no (unknown) (unknown) other food (units (unk nown) date) triggers might unknown) cause her symptoms. In any case I would advise we (unknown) (no (unknown) (unknown) pets and animals: (units (unknown) date) Yes (X dog) unknown) (unknown) (no (unknown) (unknown) proceed with EGD (units (unknown) date) and colonoscopy to unknown) rule out other abnormal conditions of the (unknown) (no (unknown) (unknown) read the note (units ( unknown) date) carefully and unknown) recognize, using context, where these substitutions (unknown) (no (unknown) (unknown) removed several (units (unknown) date) years ago. She had unknown) a baby in the past year. (unknown) (no (unknown) (unknown) second hand (units (un known) date) exposure: No unknown) (unknown) (no (unknown) (unknown) software. 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 (units (unkno wn) date) unknown) (unknown) (no (unknown) (unknown) tramadol 50 mg (units (unknown) date) tablet 50 mg PO unknown) Q8H PRN pain #20 tabs 06/14/22 [Rx Confirmed (unknown) (no (unknown) (unknown) would recommend (units (unknown) date) small low-fat unknown) meals and keeping a food log to figure out what Result panel 202 (unknown) (no date) (unknown) (unknown) 0 /ul (unkn own) (unknown) (no date) (unknown) (unknown) 0.6 % (unkn own) (unknown) (no date) (unknown) (unknown) 13.0 g/dl (unkn own) (unknown) (no date) (unknown) (unknown) 13.4 % (unkn own) (unknown) (no date) (unknown) (unknown) 2100 /ul (unkn own) (unknown) (no date) (unknown) (unknown) 29.0 % (unkn own) (unknown) (no date) (unknown) (unknown) 29.6 pg (unkn own) (unknown) (no date) (unknown) (unknown) 3.6 % (unkn own) (unknown) (no date) (unknown) (unknown) 300 /ul (unkn own) (unknown) (no date) (unknown) (unknown) 327 x10 3/ul (unkn own) (unknown) (no date) (unknown) (unknown) 33.7 % (unkn own) (unknown) (no date) (unknown) (unknown) 38.5 % (unkn own) (unknown) (no date) (unknown) (unknown) 4.38 x10 6/ul (unkn own) (unknown) (no date) (unknown) (unknown) 4500 /ul (unkn own) (unknown) (no date) (unknown) (unknown) 500 /ul (unkn own) (unknown) (no date) (unknown) (unknown) 6.3 % (unkn own) (unknown) (no date) (unknown) (unknown) 60.5 % (unkn own) (unknown) (no date) (unknown) (unknown) 7.4 x10 3/ul (unkn own) (unknown) (no date) (unknown) (unknown) 87.9 fl (unkn own) Result panel 203 (unknown) (no date) (unknown) (unknown) 1-5/HPF (units (unkn own) unknown) (unknown) (no date) (unknown) (unknown) 30-100/HPF (units (un known) unknown) (unknown) (no date) (unknown) (unknown) 30-100/HPF (units (un known) unknown) (unknown) (no date) (unknown) (unknown) Moderate (units (unkn own) (10-30) unknown) Result panel 204 (unknown) (no date) (unknown) (unknown) > 60 ml/min (unkn own) (unknown) (no date) (unknown) (unknown) > 60 ml/min (unkn own) (unknown) (no date) (unknown) (unknown) 0.6 mg/dl (unkn own) (unknown) (no date) (unknown) (unknown) 0.71 mg/dl (unkn own) (unknown) (no date) (unknown) (unknown) 1.4 (units unknown) (unknown) (unknown) (no date) (unknown) (unknown) 103 mg/dl (unkn own) (unknown) (no date) (unknown) (unknown) 103 mg/dl (unkn own) (unknown) (no date) (unknown) (unknown) 105 mmol/l (unkn own) (unknown) (no date) (unknown) (unknown) 13 mg/dl (unkn own) (unknown) (no date) (unknown) (unknown) 138 mmol/l (unkn own) (unknown) (no date) (unknown) (unknown) 18.3 (units unknown) (unknown) (unknown) (no date) (unknown) (unknown) 21 iu/l (unkn own) (unknown) (no date) (unknown) (unknown) 25 iu/l (unkn own) (unknown) (no date) (unknown) (unknown) 3.1 g/dl (unkn own) (unknown) (no date) (unknown) (unknown) 30 mmol/l (unkn own) (unknown) (no date) (unknown) (unknown) 37 u/l (unkn own) (unknown) (no date) (unknown) (unknown) 4.3 g/dl (unkn own) (unknown) (no date) (unknown) (unknown) 4.3 mmol/l (unkn own) (unknown) (no date) (unknown) (unknown) 7.4 g/dl (unkn own) (unknown) (no date) (unknown) (unknown) 70 u/l (unkn own) (unknown) (no date) (unknown) (unknown) 8.7 mg/dl (unkn own) Result panel 205 (unknown) (no (unknown) (unknown) (no value) (units (unk nown) date) unknown) (unknown) (no (unknown) (unknown) #30 tabs (units (unkno wn) date) unknown) (unknown) (no (unknown) (unknown) (DME) True Metrix (units (unknown) date) Glucose Test Strip unknown) Strip (unknown) (no (unknown) (unknown) (DME) (units (unkno wn) date) blood-glucose unknown) meter [Blood Glucose Monitoring] Kit (unknown) (no (unknown) (unknown) (DME) lancets (units ( unknown) date) Misc unknown) (unknown) (no (unknown) (unknown) [id number] (units (unkno wn) date) unknown) (unknown) (no (unknown) (unknown) 01/30/23 01/30/23 (units (unknown) date) 01/30/23 unknown) Range/Units (unknown) (no (unknown) (unknown) 01/30/23 17:00 (units (unknown) date) unknown) (unknown) (no (unknown) (unknown) 01/30/23 17:17 (units (unknown) date) unknown) (unknown) (no (unknown) (unknown) 01/30/23 (units (unkno wn) date) unknown) (unknown) (no (unknown) (unknown) 16:47 01/30/23 (units (unknown) date) unknown) (unknown) (no (unknown) (unknown) 17:00 17:17 17:17 (units (unknown) date) unknown) (unknown) (no (unknown) (unknown) 18:10 01/30/23 (units (unknown) date) unknown) (unknown) (no (unknown) (unknown) 18:10 (units (unkno wn) date) unknown) (unknown) (no (unknown) (unknown) 20 mg PO DAILY (units (unknown) date) Qty: 90 3RF unknown) (unknown) (no (unknown) (unknown) 240 ml PO Q10M (units (unknown) date) Qty: 4000 0RF unknown) (unknown) (no (unknown) (unknown) 25 mg PO BID PRN (units (unknown) date) (Reason: unknown) dizziness) Qty: 14 0RF (unknown) (no (unknown) (unknown) 4 mg PO Q8H PRN (units (unknown) date) (Reason: nausea unknown) and vomiting) Qty: 14 0RF (unknown) (no (unknown) (unknown) 50 mg PO Q8H PRN (units (unknown) date) (Reason: pain) unknown) Qty: 20 0RF (unknown) (no (unknown) (unknown) 600 mg PO Q6H PRN (units (unknown) date) (Reason: pain or unknown) cramping) Qty: 30 2RF (unknown) (no (unknown) (unknown) ALT 25 (<35) IU/L (units (unknown) date) unknown) (unknown) (no (unknown) (unknown) AST 21 (14-36) (units (unknown) date) IU/L unknown) (unknown) (no (unknown) (unknown) Age/Sex: 32 / F (units (unknown) date) unknown) (unknown) (no (unknown) (unknown) Albumin 4.3 (units (un known) date) (3.5-5.0) g/dL unknown) (unknown) (no (unknown) (unknown) Albumin/Globulin (units (unknown) date) Ratio 1.4 unknown) (1.0-2.8) (unknown) (no (unknown) (unknown) Alkaline (units (unkno wn) date) Phosphatase 37 L unknown) (38-126) U/L (unknown) (no (unknown) (unknown) Allergies (units (unkn own) date) unknown) (unknown) (no (unknown) (unknown) Allergy/AdvReac (units (unknown) date) Type Severity unknown) Reaction Status Date / Time (unknown) (no (unknown) (unknown) Anemia (-2017) (units (unknown) date) unknown) (unknown) (no (unknown) (unknown) Anxiety (units (unkno wn) date) (07/09/16) unknown) (unknown) (no (unknown) (unknown) Anxiety (units (unkno wn) date) unknown) (unknown) (no (unknown) (unknown) BUN 13 (7-17) (units ( unknown) date) mg/dL unknown) (unknown) (no (unknown) (unknown) BUN/Creatinine (units (unknown) date) Ratio 18.3 (6-22) unknown) (unknown) (no (unknown) (unknown) Baso # (Auto) 0 (units (unknown) date) (0-100) /uL unknown) (unknown) (no (unknown) (unknown) Baso % (Auto) 0.6 (units (unknown) date) (0-2) % unknown) (unknown) (no (unknown) (unknown) Bedside Urine (units ( unknown) date) Bilirubin - unknown) Negative (unknown) (no (unknown) (unknown) Bedside Urine (units ( unknown) date) Glucose Negative unknown) (unknown) (no (unknown) (unknown) Bedside Urine (units ( unknown) date) Ketone - Negative unknown) (unknown) (no (unknown) (unknown) Bedside Urine (units ( unknown) date) Leukocytes - unknown) Negative (unknown) (no (unknown) (unknown) Bedside Urine (units ( unknown) date) Nitrite - Negative unknown) (unknown) (no (unknown) (unknown) Bedside Urine (units ( unknown) date) Occult Blood unknown) (unknown) (no (unknown) (unknown) Bedside Urine (units ( unknown) date) Protein +/- 15 unknown) (unknown) (no (unknown) (unknown) Bedside Urine (units ( unknown) date) Urobilinogen +/- unknown) 1mg (unknown) (no (unknown) (unknown) Bedside Urine pH (units (unknown) date) 6.0 unknown) (unknown) (no (unknown) (unknown) Biliary colic (units ( unknown) date) unknown) (unknown) (no (unknown) (unknown) Blood Pressure (units (unknown) date) 128/90 01/30/23 unknown) 16:47 (unknown) (no (unknown) (unknown) Blood Pressure (units (unknown) date) 128/90 122/80 unknown) (unknown) (no (unknown) (unknown) Calcium 8.7 (units (un known) date) (8.4-10.2) mg/dL unknown) (unknown) (no (unknown) (unknown) Carbon Dioxide 30 (units (unknown) date) (22-32) mmol/L unknown) (unknown) (no (unknown) (unknown) Chief complaint: (units (unknown) date) Urogenital-Female unknown) (unknown) (no (unknown) (unknown) Chloride 105 (units (u nknown) date) (98-107) mmol/L unknown) (unknown) (no (unknown) (unknown) Cholelithiasis (units (unknown) date) unknown) (unknown) (no (unknown) (unknown) Chronic headaches (units (unknown) date) unknown) (unknown) (no (unknown) (unknown) Complete Blood (units (unknown) date) Count AUTO DIFF unknown) Stat (unknown) (no (unknown) (unknown) Comprehensive (units ( unknown) date) Metabolic Panel unknown) Stat (unknown) (no (unknown) (unknown) Course (units (unkno wn) date) unknown) (unknown) (no (unknown) (unknown) Creatinine 0.71 (units (unknown) date) (0.52-1.04) mg/dL unknown) (unknown) (no (unknown) (unknown) : 1990 (units (unknown) date) Acct:[id number] unknown) (unknown) (no (unknown) (unknown) Date of Service: (units (unknown) date) 01/30/23 unknown) (unknown) (no (unknown) (unknown) Departure (units (unkn own) date) unknown) (unknown) (no (unknown) (unknown) Discharge Plan (units (unknown) date) unknown) (unknown) (no (unknown) (unknown) Dose Instruction: (units (unknown) date) unknown) (unknown) (no (unknown) (unknown) Dysthymia (units (unkn own) date) (07/09/16) unknown) (unknown) (no (unknown) (unknown) ED Orders (units (unkn own) date) unknown) (unknown) (no (unknown) (unknown) ER Physician: (units ( unknown) date) John Castillo D.O. unknown) (unknown) (no (unknown) (unknown) Emergency Report (units (unknown) date) unknown) (unknown) (no (unknown) (unknown) Eos # (Auto) 300 (units (unknown) date) (0-450) /uL unknown) (unknown) (no (unknown) (unknown) Eos % (Auto) 3.6 (units (unknown) date) (2-4) % unknown) (unknown) (no (unknown) (unknown) Esterase (units (unkno wn) date) unknown) (unknown) (no (unknown) (unknown) Estimated GFR > (units (unknown) date) 60 (>60) mL/min unknown) (unknown) (no (unknown) (unknown) Exam (units (unkno wn) date) unknown) (unknown) (no (unknown) (unknown) Exposure to (units (un known) date) hepatitis B unknown) (-2015) (unknown) (no (unknown) (unknown) Family History (units (unknown) date) (Reviewed 01/06/23 unknown) @ 15:19 by Maira Doyle RN) (unknown) (no (unknown) (unknown) Father (units (unknown) date) Myocardial unknown) infarction (unknown) (no (unknown) (unknown) General (units (unkno wn) date) unknown) (unknown) (no (unknown) (unknown) Globulin 3.1 (units (u nknown) date) (1.7-4.1) g/dL unknown) (unknown) (no (unknown) (unknown) Glucose 103 H (units ( unknown) date) (70-100) mg/dL unknown) (unknown) (no (unknown) (unknown) Grandfather (units (un known) date) Unknown unknown) whether patient has any health problems (unknown) (no (unknown) (unknown) Grandmother (units (un known) date) Twins, unknown) both liveborn (unknown) (no (unknown) (unknown) Grandmother (units (un known) date) Unknown unknown) whether patient has any health problems (unknown) (no (unknown) (unknown) H/O (units (u nknown) date) section unknown) complicating (unknown) (no (unknown) (unknown) H/O wisdom tooth (units (unknown) date) extraction () unknown) (unknown) (no (unknown) (unknown) HPI - Female (units (u nknown) date) Genitourinary unknown) (unknown) (no (unknown) (unknown) Hct 38.5 (36-46) (units (unknown) date) % unknown) (unknown) (no (unknown) (unknown) Hgb 13.0 (units (unkno wn) date) (12.0-16.0) g/dL unknown) (unknown) (no (unknown) (unknown) History of (units (unk nown) date) primary unknown) section (-03/05/13) (unknown) (no (unknown) (unknown) Initial Vital (units ( unknown) date) Signs unknown) (unknown) (no (unknown) (unknown) Initial Vital (units ( unknown) date) Signs: unknown) (unknown) (no (unknown) (unknown) [facility] (units (unknown) date) [address] [place] [address] unknown) [place] [address] (unknown) (no (unknown) (unknown) Lab Data (units (unkno wn) date) unknown) (unknown) (no (unknown) (unknown) Lab Results (units (un known) date) unknown) (unknown) (no (unknown) (unknown) Labs: (units (unkno wn) date) unknown) (unknown) (no (unknown) (unknown) Lipase 70 (units (unkn own) date) (23-300) U/L unknown) (unknown) (no (unknown) (unknown) Lipase Stat (units (un known) date) unknown) (unknown) (no (unknown) (unknown) Lymph # (Auto) (units (unknown) date) 2100 ([id number]) unknown) /uL (unknown) (no (unknown) (unknown) Lymph % (Auto) (units (unknown) date) 29.0 (25-40) % unknown) (unknown) (no (unknown) (unknown) MCH 29.6 (26-34) (units (unknown) date) PG unknown) (unknown) (no (unknown) (unknown) MCHC 33.7 (30-36) (units (unknown) date) % unknown) (unknown) (no (unknown) (unknown) MCV 87.9 (80-100) (units (unknown) date) fL unknown) (unknown) (no (unknown) (unknown) MDM - Female (units (u nknown) date) Genitourinary unknown) (unknown) (no (unknown) (unknown) Medical History (units (unknown) date) (Reviewed 01/06/23 unknown) @ 15:19 by Maira Doyle RN) (unknown) (no (unknown) (unknown) Medication (units (unk nown) date) Instructions unknown) Recorded (unknown) (no (unknown) (unknown) Metrix Glucose (units (unknown) date) Test Strip) unknown) (unknown) (no (unknown) (unknown) Mode of arrival: (units (unknown) date) Ambulatory unknown) (unknown) (no (unknown) (unknown) Monitoring kit) (units (unknown) date) unknown) (unknown) (no (unknown) (unknown) Jenkins # (Auto) 500 (units (unknown) date) (0-900) /uL unknown) (unknown) (no (unknown) (unknown) Jenkins % (Auto) 6.3 (units (unknown) date) (3-14) % unknown) (unknown) (no (unknown) (unknown) Mother Diabetes (units (unknown) date) mellitus unknown) (unknown) (no (unknown) (unknown) Neut # (Auto) (units ( unknown) date) 4500 (0904-2924) unknown) /uL (unknown) (no (unknown) (unknown) Neut % (Auto) (units ( unknown) date) 60.5 (50-75) % unknown) (unknown) (no (unknown) (unknown) No Action (units (unkn own) date) unknown) (unknown) (no (unknown) (unknown) No Known Drug (units ( unknown) date) Allergies Allergy unknown) Unknown Verified 01/30/23 16:51 (unknown) (no (unknown) (unknown) Obesity (BMI (units (u nknown) date) 35.0-39.9 without unknown) comorbidity) (unknown) (no (unknown) (unknown) Occipital (units (unkn own) date) neuralgia unknown) (unknown) (no (unknown) (unknown) Ondansetron HCl (units (unknown) date) (Ondansetron 4 Mg unknown) Odt) 4 mg PO NOW PRN (unknown) (no (unknown) (unknown) Ondansetron HCl (units (unknown) date) (Ondansetron 4 unknown) Mg/2 Ml Inj) 4 mg IV NOW PRN (unknown) (no (unknown) (unknown) Ordered: (units (unkno wn) date) unknown) (unknown) (no (unknown) (unknown) Orders (units (unkno wn) date) unknown) (unknown) (no (unknown) (unknown) Osteomyelitis (units ( unknown) date) (-2000) unknown) (unknown) (no (unknown) (unknown) Oxygen Delivery (units (unknown) date) Method Room Air unknown) 01/30/23 16:47 (unknown) (no (unknown) (unknown) Oxygen Delivery (units (unknown) date) Method Room Air unknown) (unknown) (no (unknown) (unknown) PRN Reason: (units (un known) date) Nausea And unknown) Vomiting (unknown) (no (unknown) (unknown) Patient History (units (unknown) date) unknown) (unknown) (no (unknown) (unknown) Patient: (units (unkno wn) date) Bernie Rodriguez unknown) MR#: [id number] (unknown) (no (unknown) (unknown) Plt Count 327 (units ( unknown) date) (150-400) X103/uL unknown) (unknown) (no (unknown) (unknown) Point of Care (units ( unknown) date) Testing unknown) (unknown) (no (unknown) (unknown) Potassium 4.3 (units ( unknown) date) (3.4-5.1) mmol/L unknown) (unknown) (no (unknown) (unknown) Test (units (unknown) date) Results Negative unknown) (unknown) (no (unknown) (unknown) Prescriptions: (units (unknown) date) unknown) (unknown) (no (unknown) (unknown) Previous Rx's (units ( unknown) date) unknown) (unknown) (no (unknown) (unknown) Pulse Oximetry (units (unknown) date) 100 01/30/23 16:47 unknown) (unknown) (no (unknown) (unknown) Pulse Oximetry (units (unknown) date) 100 100 unknown) (unknown) (no (unknown) (unknown) Pulse Rate 86 (units ( unknown) date) 01/30/23 16:47 unknown) (unknown) (no (unknown) (unknown) Pulse Rate 86 81 (units (unknown) date) unknown) (unknown) (no (unknown) (unknown) RBC 4.38 (units (unkno wn) date) (4.0-5.2) X106/uL unknown) (unknown) (no (unknown) (unknown) RDW 13.4 (units (unkno wn) date) (11.6-14.8) % unknown) (unknown) (no (unknown) (unknown) Referrals: (units (unk nown) date) unknown) (unknown) (no (unknown) (unknown) Related Data (units (u nknown) date) unknown) (unknown) (no (unknown) (unknown) Respiratory Rate (units (unknown) date) 18 01/30/23 16:47 unknown) (unknown) (no (unknown) (unknown) Respiratory Rate (units (unknown) date) 18 20 unknown) (unknown) (no (unknown) (unknown) Rh negative state (units (unknown) date) in antepartum unknown) period (unknown) (no (unknown) (unknown) Rx Instructions: (units (unknown) date) unknown) (unknown) (no (unknown) (unknown) Julia Jonas DO (units (unknown) date) [Primary Care unknown) Provider] (unknown) (no (unknown) (unknown) See Rx (units (unkno wn) date) Instructions unknown) .ROUTE .COMPLEX Qty: 50 0RF (unknown) (no (unknown) (unknown) See Rx (units (unkno wn) date) Instructions unknown) .ROUTE .MEDSUPPLY Qty: 1 0RF (unknown) (no (unknown) (unknown) See Rx (units (unkno wn) date) Instructions unknown) .Route Qty: 100 3RF (unknown) (no (unknown) (unknown) Signed By: (units (unk nown) date) unknown) (unknown) (no (unknown) (unknown) Sister Depression (units (unknown) date) unknown) (unknown) (no (unknown) (unknown) Sister (units (unkno wn) date) Hypoglycemic unknown) disorder (unknown) (no (unknown) (unknown) Sodium 138 (units (unk nown) date) (137-145) mmol/L unknown) (unknown) (no (unknown) (unknown) Source: patient (units (unknown) date) unknown) (unknown) (no (unknown) (unknown) Stated complaint: (units (unknown) date) Kidney pain unknown) (unknown) (no (unknown) (unknown) Status post (units (un known) date) delivery unknown) (04/10/17) (unknown) (no (unknown) (unknown) Status post (units (un known) date) cholecystectomy unknown) (2016) (unknown) (no (unknown) (unknown) Status post (units (un known) date) incision and unknown) drainage (-1999) (unknown) (no (unknown) (unknown) Substance Use (units ( unknown) date) Type: does not use unknown) (unknown) (no (unknown) (unknown) Surgical History (units (unknown) date) (Reviewed 01/06/23 unknown) @ 15:19 by Maira Doyle RN) (unknown) (no (unknown) (unknown) Take as directed (units (unknown) date) by Physician unknown) (unknown) (no (unknown) (unknown) Temperature 98.5 (units (unknown) date) F 01/30/23 16:47 unknown) (unknown) (no (unknown) (unknown) Temperature 98.5 (units (unknown) date) F unknown) (unknown) (no (unknown) (unknown) Time Seen by (units (u nknown) date) Provider: 01/30/23 unknown) 18:04 (unknown) (no (unknown) (unknown) Total Bilirubin (units (unknown) date) 0.6 (0.2-1.3) unknown) mg/dL (unknown) (no (unknown) (unknown) Total Protein 7.4 (units (unknown) date) (6.3-8.2) g/dL unknown) (unknown) (no (unknown) (unknown) USE 1 STRIP TO (units (unknown) date) CHECK GLUCOSE unknown) TWICE DAILY OR NEEDED FOR SHAKINESS. (unknown) (no (unknown) (unknown) USE 1 TO CHECK (units (unknown) date) GLUCOSE TWICE unknown) DAILY OR NEEDED FOR SHAKINESS (unknown) (no (unknown) (unknown) Urine Bacteria (units (unknown) date) Moderate (10-30) H unknown) (None) (unknown) (no (unknown) (unknown) Urine Culture (units ( unknown) date) Stat unknown) (unknown) (no (unknown) (unknown) Urine Dip (units (unkn own) date) unknown) (unknown) (no (unknown) (unknown) Urine Microscopic (units (unknown) date) Stat unknown) (unknown) (no (unknown) (unknown) Urine RBC (units (unkn own) date) 30-100/hpf H unknown) (0-5/HPF) (unknown) (no (unknown) (unknown) Urine Specific (units (unknown) date) [place] 1.025 unknown) (unknown) (no (unknown) (unknown) Urine WBC 1-5/hpf (units (unknown) date) (0-5/HPF) unknown) (unknown) (no (unknown) (unknown) Vital Signs - 8 (units (unknown) date) hr unknown) (unknown) (no (unknown) (unknown) Vital Signs (units (un known) date) unknown) (unknown) (no (unknown) (unknown) Vital signs: (units (u nknown) date) unknown) (unknown) (no (unknown) (unknown) WBC 7.4 (units (unkno wn) date) (4.5-11.0) X103/uL unknown) (unknown) (no (unknown) (unknown) [Embedded Image (units (unknown) date) Not Available] unknown) (unknown) (no (unknown) (unknown) blood sugar (units (un known) date) diagnostic (True unknown) #50 ea 01/01/23 (unknown) (no (unknown) (unknown) blood-glucose (units ( unknown) date) meter (Blood unknown) Glucose #1 ea 01/01/23 (unknown) (no (unknown) (unknown) check blood sugar (units (unknown) date) twice a day or unknown) when shakey (unknown) (no (unknown) (unknown) gram solution (units ( unknown) date) (Golytely) unknown) (unknown) (no (unknown) (unknown) gram-22.74 (units (unk nown) date) gram-6.74 unknown) gram-5.86 (unknown) (no (unknown) (unknown) ibuprofen 600 mg (units (unknown) date) tablet 600 mg PO unknown) Q6H PRN pain or cramping 03/20/21 (unknown) (no (unknown) (unknown) ibuprofen 600 mg (units (unknown) date) tablet unknown) (unknown) (no (unknown) (unknown) lancets #100 ea (units (unknown) date) 01/09/22 unknown) (unknown) (no (unknown) (unknown) meclizine 25 mg (units (unknown) date) tablet 25 mg PO unknown) BID PRN dizziness #14 tabs 03/20/22 (unknown) (no (unknown) (unknown) meclizine 25 mg (units (unknown) date) tablet unknown) (unknown) (no (unknown) (unknown) omeprazole 20 mg (units (unknown) date) capsule,delayed 20 unknown) mg PO DAILY #90 caps 01/01/23 (unknown) (no (unknown) (unknown) omeprazole 20 mg (units (unknown) date) capsule,delayed unknown) release(DR/EC) (unknown) (no (unknown) (unknown) ondansetron 4 mg (units (unknown) date) disintegrating 4 unknown) mg PO Q8H PRN nausea and 03/20/22 (unknown) (no (unknown) (unknown) ondansetron 4 mg (units (unknown) date) tablet,disintegrat unknown) ing (unknown) (no (unknown) (unknown) peg (units (unkno wn) date) 3350-electrolytes unknown) 236 240 ml PO Q10M #4,000 mL 01/06/23 (unknown) (no (unknown) (unknown) peg (units (unkno wn) date) 3350-electrolytes unknown) [Golytely] 236-22.74-6.74 -5.86 gram recon soln (unknown) (no (unknown) (unknown) release (units (unkno wn) date) unknown) (unknown) (no (unknown) (unknown) tablet vomiting (units (unknown) date) #14 tabs unknown) (unknown) (no (unknown) (unknown) tramadol 50 mg (units (unknown) date) tablet 50 mg PO unknown) Q8H PRN pain #20 tabs 06/14/22 (unknown) (no (unknown) (unknown) tramadol 50 mg (units (unknown) date) tablet unknown) Result panel 206 (unknown) (no (unknown) (unknown) (no value) (units (unk nown) date) unknown) (unknown) (no (unknown) (unknown) [id number] (units (unkn own) date) unknown) (unknown) (no (unknown) (unknown) 01/30/23 (units (unkno wn) date) unknown) (unknown) (no (unknown) (unknown) [address] [place] [address] (units (unknown) date) unknown) (unknown) (no (unknown) (unknown) Accession (units (unkn own) date) Number: unknown) [id number] (unknown) (no (unknown) (unknown) Age/Sex: 32 / F (units (unknown) date) Date of Service: unknown) (unknown) (no (unknown) (unknown) ALLY Borden (units ( unknown) date) [id number] unknown) (unknown) (no (unknown) (unknown) Approved by: (units (u nknown) date) Aditya Stone M.D. unknown) on 01/30/2023 at 20:00 (unknown) (no (unknown) (unknown) Axial sections (units (unknown) date) were acquired unknown) from the lung bases to the pubic symphysis. (unknown) (no (unknown) (unknown) Body wall: (units (unk nown) date) Unremarkable unknown) (unknown) (no (unknown) (unknown) Bones: No acute (units (unknown) date) or suspicious unknown) osseous abnormality. (unknown) (no (unknown) (unknown) Bowel and (units (unkn own) date) peritoneum: No unknown) evidence of small bowel obstruction. There are (unknown) (no (unknown) (unknown) COMPARISON: (units (un known) date) [facility], unknown) CT, CT ABDOMEN PELVIS W CON, 04/05/2021, 20:45. (unknown) (no (unknown) (unknown) CT Scan Report (units (unknown) date) unknown) (unknown) (no (unknown) (unknown) Coronal and (units (un known) date) unknown) (unknown) (no (unknown) (unknown) : 1990 (units (unknown) date) Acct:[id number] unknown) (unknown) (no (unknown) (unknown) Dictated by: (units (u nknown) date) Aditya Stone M.D. unknown) on 01/30/2023 at 19:55 (unknown) (no (unknown) (unknown) FINDINGS: (units (unkn own) date) unknown) (unknown) (no (unknown) (unknown) IMPRESSION: (units (un known) date) unknown) (unknown) (no (unknown) (unknown) INDICATIONS: (units (u nknown) date) flank pain, unknown) hematuria (unknown) (no (unknown) (unknown) Image quality: (units (unknown) date) Good unknown) (unknown) (no (unknown) (unknown) [facility] (units (unknown) date) unknown) (unknown) (no (unknown) (unknown) Loc: ED (units (unkno wn) date) unknown) (unknown) (no (unknown) (unknown) Lower chest: (units (u nknown) date) Unremarkable unknown) (unknown) (no (unknown) (unknown) No acute (units (unkno wn) date) abdominal pelvic unknown) pathology identified. Other findings as above. (unknown) (no (unknown) (unknown) Ordering (units (unkno wn) date) Provider: unknown) John Castillo D.O. (unknown) (no (unknown) (unknown) PROCEDURE: CT (units ( unknown) date) KIDNEY URETER unknown) BLADDER (KUB) (unknown) (no (unknown) (unknown) Patient: (units (unkno wn) date) Bernie Rodriguez unknown) MR#: M (unknown) (no (unknown) (unknown) Pelvis: (units (unkno wn) date) Reproductive unknown) organs are not well evaluated on CT. Consider ultrasound (unknown) (no (unknown) (unknown) Procedure: CT (units ( unknown) date) kidney ureter unknown) bladder (KUB) (unknown) (no (unknown) (unknown) Signed (units (unkno wn) date) unknown) (unknown) (no (unknown) (unknown) Solid organs: (units ( unknown) date) Liver is unknown) unremarkable. Gallbladder is absent. No pathologic (unknown) (no (unknown) (unknown) TECHNIQUE: (units (unk nown) date) unknown) (unknown) (no (unknown) (unknown) Vessels and (units (un known) date) lymph nodes: No unknown) abdominal aortic aneurysm or pathologic adenopathy (unknown) (no (unknown) (unknown) automated (units (unkn own) date) exposure control, unknown) adjustment of mA and/or kV according to patient (unknown) (no (unknown) (unknown) by size (units (unkno wn) date) unknown) (unknown) (no (unknown) (unknown) colonic (units (unkno wn) date) unknown) (unknown) (no (unknown) (unknown) criteria. (units (unkn own) date) unknown) (unknown) (no (unknown) (unknown) dilation of (units (un known) date) unknown) (unknown) (no (unknown) (unknown) diverticula. (units (u nknown) date) Normal appearance unknown) of the appendix. No pathologic ascites. (unknown) (no (unknown) (unknown) hydronephrosis (units (unknown) date) bilaterally. No unknown) calcified stones. (unknown) (no (unknown) (unknown) if there (units (unkno wn) date) unknown) (unknown) (no (unknown) (unknown) is concern for (units (unknown) date) pelvic pathology. unknown) The bladder is under distended. (unknown) (no (unknown) (unknown) sagittal (units (unkno wn) date) reformats were unknown) performed. For radiation dose reduction, the following (unknown) (no (unknown) (unknown) size. (units (unkno wn) date) unknown) (unknown) (no (unknown) (unknown) the biliary tree (units (unknown) date) or pancreatic unknown) duct. No splenomegaly. No adrenal nodules. No (unknown) (no (unknown) (unknown) was used: (units (unkn own) date) unknown) Result panel 207 (unknown) (no (unknown) (unknown) (no value) (units (unk nown) date) unknown) (unknown) (no (unknown) (unknown) #30 tabs (units (unkno wn) date) unknown) (unknown) (no (unknown) (unknown) (DME) True Metrix (units (unknown) date) Glucose Test Strip unknown) Strip (unknown) (no (unknown) (unknown) (DME) (units (unkno wn) date) blood-glucose unknown) meter [Blood Glucose Monitoring] Kit (unknown) (no (unknown) (unknown) (DME) lancets (units ( unknown) date) Misc unknown) (unknown) (no (unknown) (unknown) [id number] (units (unkno wn) date) unknown) (unknown) (no (unknown) (unknown) 01/30/23 01/30/23 (units (unknown) date) 01/30/23 unknown) Range/Units (unknown) (no (unknown) (unknown) 01/30/23 17:00 (units (unknown) date) unknown) (unknown) (no (unknown) (unknown) 01/30/23 17:17 (units (unknown) date) unknown) (unknown) (no (unknown) (unknown) 01/30/23 (units (unkno wn) date) unknown) (unknown) (no (unknown) (unknown) 12 point review (units (unknown) date) of systems is unknown) negative except for those stated above (unknown) (no (unknown) (unknown) 16:47 01/30/23 (units (unknown) date) unknown) (unknown) (no (unknown) (unknown) 17:00 17:17 17:17 (units (unknown) date) unknown) (unknown) (no (unknown) (unknown) 18:10 01/30/23 (units (unknown) date) unknown) (unknown) (no (unknown) (unknown) 18:10 (units (unkno wn) date) unknown) (unknown) (no (unknown) (unknown) 20 mg PO DAILY (units (unknown) date) Qty: 90 3RF unknown) (unknown) (no (unknown) (unknown) 240 ml PO Q10M (units (unknown) date) Qty: 4000 0RF unknown) (unknown) (no (unknown) (unknown) 25 mg PO BID PRN (units (unknown) date) (Reason: unknown) dizziness) Qty: 14 0RF (unknown) (no (unknown) (unknown) 32-year-old (units (un known) date) female nonsmoker unknown) with noncontributory chronic medical history (unknown) (no (unknown) (unknown) 4 mg PO Q8H PRN (units (unknown) date) (Reason: nausea unknown) and vomiting) Qty: 14 0RF (unknown) (no (unknown) (unknown) 50 mg PO Q8H PRN (units (unknown) date) (Reason: pain) unknown) Qty: 20 0RF (unknown) (no (unknown) (unknown) 600 mg PO Q6H PRN (units (unknown) date) (Reason: pain or unknown) cramping) Qty: 30 2RF (unknown) (no (unknown) (unknown) ALT 25 (<35) IU/L (units (unknown) date) unknown) (unknown) (no (unknown) (unknown) AST 21 (14-36) (units (unknown) date) IU/L unknown) (unknown) (no (unknown) (unknown) Age/Sex: 32 / F (units (unknown) date) unknown) (unknown) (no (unknown) (unknown) Albumin 4.3 (units (un known) date) (3.5-5.0) g/dL unknown) (unknown) (no (unknown) (unknown) Albumin/Globulin (units (unknown) date) Ratio 1.4 unknown) (1.0-2.8) (unknown) (no (unknown) (unknown) Alkaline (units (unkno wn) date) Phosphatase 37 L unknown) (38-126) U/L (unknown) (no (unknown) (unknown) Allergies (units (unkn own) date) unknown) (unknown) (no (unknown) (unknown) Allergy/AdvReac (units (unknown) date) Type Severity unknown) Reaction Status Date / Time (unknown) (no (unknown) (unknown) Anemia (-2017) (units (unknown) date) unknown) (unknown) (no (unknown) (unknown) Anxiety (units (unkno wn) date) (07/09/16) unknown) (unknown) (no (unknown) (unknown) Anxiety (units (unkno wn) date) unknown) (unknown) (no (unknown) (unknown) BACK: Nontender (units (unknown) date) without deformity unknown) or crepitance. No flank tenderness. (unknown) (no (unknown) (unknown) BUN 13 (7-17) (units ( unknown) date) mg/dL unknown) (unknown) (no (unknown) (unknown) BUN/Creatinine (units (unknown) date) Ratio 18.3 (6-22) unknown) (unknown) (no (unknown) (unknown) Baso # (Auto) 0 (units (unknown) date) (0-100) /uL unknown) (unknown) (no (unknown) (unknown) Baso % (Auto) 0.6 (units (unknown) date) (0-2) % unknown) (unknown) (no (unknown) (unknown) Bedside Urine (units ( unknown) date) Bilirubin - unknown) Negative (unknown) (no (unknown) (unknown) Bedside Urine (units ( unknown) date) Glucose Negative unknown) (unknown) (no (unknown) (unknown) Bedside Urine (units ( unknown) date) Ketone - Negative unknown) (unknown) (no (unknown) (unknown) Bedside Urine (units ( unknown) date) Leukocytes - unknown) Negative (unknown) (no (unknown) (unknown) Bedside Urine (units ( unknown) date) Nitrite - Negative unknown) (unknown) (no (unknown) (unknown) Bedside Urine (units ( unknown) date) Occult Blood unknown) (unknown) (no (unknown) (unknown) Bedside Urine (units ( unknown) date) Protein +/- 15 unknown) (unknown) (no (unknown) (unknown) Bedside Urine (units ( unknown) date) Urobilinogen +/- unknown) 1mg (unknown) (no (unknown) (unknown) Bedside Urine pH (units (unknown) date) 6.0 unknown) (unknown) (no (unknown) (unknown) Biliary colic (units ( unknown) date) unknown) (unknown) (no (unknown) (unknown) Blood Pressure (units (unknown) date) 128/90 01/30/23 unknown) 16:47 (unknown) (no (unknown) (unknown) Blood Pressure (units (unknown) date) 128/90 122/80 unknown) (unknown) (no (unknown) (unknown) CARDIOVASCULAR: (units (unknown) date) Denies chest pain, unknown) palpitations, orthopnea, edema, (unknown) (no (unknown) (unknown) CARDIOVASCULAR: (units (unknown) date) Regular rate and unknown) rhythm without murmurs, gallops, or rubs. (unknown) (no (unknown) (unknown) CC: 32-year-old (units (unknown) date) female with unknown) episodic, colicky right flank pain (unknown) (no (unknown) (unknown) Calcium 8.7 (units (un known) date) (8.4-10.2) mg/dL unknown) (unknown) (no (unknown) (unknown) Carbon Dioxide 30 (units (unknown) date) (22-32) mmol/L unknown) (unknown) (no (unknown) (unknown) Chief complaint: (units (unknown) date) Urogenital-Female unknown) (unknown) (no (unknown) (unknown) Chloride 105 (units (u nknown) date) (98-107) mmol/L unknown) (unknown) (no (unknown) (unknown) Cholelithiasis (units (unknown) date) unknown) (unknown) (no (unknown) (unknown) Chronic headaches (units (unknown) date) unknown) (unknown) (no (unknown) (unknown) Complete Blood (units (unknown) date) Count AUTO DIFF unknown) Stat (unknown) (no (unknown) (unknown) Complicating (units (u nknown) date) co-morbidities: unknown) BMI 35, recent treatment of UTI (Macrobid) (unknown) (no (unknown) (unknown) Comprehensive (units ( unknown) date) Metabolic Panel unknown) Stat (unknown) (no (unknown) (unknown) Course (units (unkno wn) date) unknown) (unknown) (no (unknown) (unknown) Creatinine 0.71 (units (unknown) date) (0.52-1.04) mg/dL unknown) (unknown) (no (unknown) (unknown) : 1990 (units (unknown) date) Acct:[id number] unknown) (unknown) (no (unknown) (unknown) Data collected (units (unknown) date) from: Patient unknown) (unknown) (no (unknown) (unknown) Date of Service: (units (unknown) date) 01/30/23 unknown) (unknown) (no (unknown) (unknown) Departure (units (unkn own) date) unknown) (unknown) (no (unknown) (unknown) Differential (units (u nknown) date) considered, but unknown) not limited to: Pyelonephritis, kidney stone, (unknown) (no (unknown) (unknown) Discharge Plan (units (unknown) date) unknown) (unknown) (no (unknown) (unknown) Discussion: (units (un known) date) unknown) (unknown) (no (unknown) (unknown) Disposition: see (units (unknown) date) below, along with unknown) detailed discharge instructions that have (unknown) (no (unknown) (unknown) Dose Instruction: (units (unknown) date) unknown) (unknown) (no (unknown) (unknown) Dysthymia (units (unkn own) date) (07/09/16) unknown) (unknown) (no (unknown) (unknown) ED Orders (units (unkn own) date) unknown) (unknown) (no (unknown) (unknown) ENT: Nose without (units (unknown) date) bleeding, purulent unknown) drainage. Throat without erythema, (unknown) (no (unknown) (unknown) ER Physician: (units ( unknown) date) John Castillo D.O. unknown) (unknown) (no (unknown) (unknown) EXTREMITIES: No (units (unknown) date) edema or joint unknown) tenderness. (unknown) (no (unknown) (unknown) EYES: Pupils (units (u nknown) date) equal round and unknown) reactive. Extraocular motions intact. No scleral (unknown) (no (unknown) (unknown) Emergency Report (units (unknown) date) unknown) (unknown) (no (unknown) (unknown) Eos # (Auto) 300 (units (unknown) date) (0-450) /uL unknown) (unknown) (no (unknown) (unknown) Eos % (Auto) 3.6 (units (unknown) date) (2-4) % unknown) (unknown) (no (unknown) (unknown) Esterase (units (unkno wn) date) unknown) (unknown) (no (unknown) (unknown) Estimated GFR > (units (unknown) date) 60 (>60) mL/min unknown) (unknown) (no (unknown) (unknown) Exam Narrative: (units (unknown) date) unknown) (unknown) (no (unknown) (unknown) Exam documented (units (unknown) date) above, pertinent unknown) findings include: No significant abnormal (unknown) (no (unknown) (unknown) Exam (units (unkno wn) date) unknown) (unknown) (no (unknown) (unknown) Exposure to (units (un known) date) hepatitis B unknown) (-2015) (unknown) (no (unknown) (unknown) Family History (units (unknown) date) (Reviewed 01/30/23 unknown) @ 18:44 by John Castillo DO) (unknown) (no (unknown) (unknown) Father (units (unknown) date) Myocardial unknown) infarction (unknown) (no (unknown) (unknown) GASTROINTESTINAL: (units (unknown) date) Abdomen soft, unknown) non-tender, nondistended. (unknown) (no (unknown) (unknown) GASTROINTESTINAL: (units (unknown) date) See HPI unknown) (unknown) (no (unknown) (unknown) GENERAL: See HPI (units (unknown) date) unknown) (unknown) (no (unknown) (unknown) GENERAL: [31] (units ( unknown) date) year old patient unknown) appears stated age. Well-developed patient, in (unknown) (no (unknown) (unknown) : See HPI (units (un known) date) unknown) (unknown) (no (unknown) (unknown) General (units (unkno wn) date) unknown) (unknown) (no (unknown) (unknown) Globulin 3.1 (units (u nknown) date) (1.7-4.1) g/dL unknown) (unknown) (no (unknown) (unknown) Glucose 103 H (units ( unknown) date) (70-100) mg/dL unknown) (unknown) (no (unknown) (unknown) Grandfather (units (un known) date) Unknown unknown) whether patient has any health problems (unknown) (no (unknown) (unknown) Grandmother (units (un known) date) Twins, unknown) both liveborn (unknown) (no (unknown) (unknown) Grandmother (units (un known) date) Unknown unknown) whether patient has any health problems (unknown) (no (unknown) (unknown) H/O (units (u nknown) date) section unknown) complicating (unknown) (no (unknown) (unknown) H/O wisdom tooth (units (unknown) date) extraction () unknown) (unknown) (no (unknown) (unknown) HEAD: Atraumatic. (units (unknown) date) Normocephalic. unknown) (unknown) (no (unknown) (unknown) HEENT: Denies (units ( unknown) date) sinus pain, ear unknown) pain, sore throat, difficulty swallowing, (unknown) (no (unknown) (unknown) HPI - Female (units (u nknown) date) Genitourinary unknown) (unknown) (no (unknown) (unknown) HPI Narrative: (units (unknown) date) unknown) (unknown) (no (unknown) (unknown) Hct 38.5 (36-46) (units (unknown) date) % unknown) (unknown) (no (unknown) (unknown) Hgb 13.0 (units (unkno wn) date) (12.0-16.0) g/dL unknown) (unknown) (no (unknown) (unknown) History of (units (unk nown) date) Present Illness unknown) (unknown) (no (unknown) (unknown) History of (units (unk nown) date) primary unknown) section (-03/05/13) (unknown) (no (unknown) (unknown) Imaging studies (units (unknown) date) independently unknown) reviewed: (unknown) (no (unknown) (unknown) Independently (units ( unknown) date) reviewed EKG as unknown) above (unknown) (no (unknown) (unknown) Initial Vital (units ( unknown) date) Signs unknown) (unknown) (no (unknown) (unknown) Initial Vital (units ( unknown) date) Signs: unknown) (unknown) (no (unknown) (unknown) [facility] (units (unknown) date) [address] unknown) [place] [address] (unknown) (no (unknown) (unknown) Lab Data (units (unkno wn) date) unknown) (unknown) (no (unknown) (unknown) Lab Results (units (un known) date) unknown) (unknown) (no (unknown) (unknown) Lab Test results (units (unknown) date) independently unknown) reviewed as above. Pertinent findings: Urine (unknown) (no (unknown) (unknown) Labs: (units (unkno wn) date) unknown) (unknown) (no (unknown) (unknown) Lipase 70 (units (unkn own) date) (23-300) U/L unknown) (unknown) (no (unknown) (unknown) Lipase Stat (units (un known) date) unknown) (unknown) (no (unknown) (unknown) Lymph # (Auto) (units (unknown) date) 2100 (6518-3604) unknown) /uL (unknown) (no (unknown) (unknown) Lymph % (Auto) (units (unknown) date) 29.0 (25-40) % unknown) (unknown) (no (unknown) (unknown) MCH 29.6 (26-34) (units (unknown) date) PG unknown) (unknown) (no (unknown) (unknown) MCHC 33.7 (30-36) (units (unknown) date) % unknown) (unknown) (no (unknown) (unknown) MCV 87.9 (80-100) (units (unknown) date) fL unknown) (unknown) (no (unknown) (unknown) MDM - Female (units (u nknown) date) Genitourinary unknown) (unknown) (no (unknown) (unknown) MDM Narrative (units ( unknown) date) unknown) (unknown) (no (unknown) (unknown) MUSCULOSKELETAL: (units (unknown) date) denies weakness, unknown) joint pain, or bony pain (unknown) (no (unknown) (unknown) Medical History (units (unknown) date) (Reviewed 01/30/23 unknown) @ 18:44 by John Castillo DO) (unknown) (no (unknown) (unknown) Medical decision (units (unknown) date) making narrative: unknown) (unknown) (no (unknown) (unknown) Medical records (units (unknown) date) reviewed: Prior unknown) notes reviewed in our EMR (unknown) (no (unknown) (unknown) Medication (units (unk nown) date) Instructions unknown) Recorded (unknown) (no (unknown) (unknown) Metrix Glucose (units (unknown) date) Test Strip) unknown) (unknown) (no (unknown) (unknown) Mode of arrival: (units (unknown) date) Ambulatory unknown) (unknown) (no (unknown) (unknown) Monitoring kit) (units (unknown) date) unknown) (unknown) (no (unknown) (unknown) Jenkins # (Auto) 500 (units (unknown) date) (0-900) /uL unknown) (unknown) (no (unknown) (unknown) Jenkins % (Auto) 6.3 (units (unknown) date) (3-14) % unknown) (unknown) (no (unknown) (unknown) Mother Diabetes (units (unknown) date) mellitus unknown) (unknown) (no (unknown) (unknown) NECK: Trachea (units ( unknown) date) midline. Non unknown) tender (unknown) (no (unknown) (unknown) NEURO: AOx3. (units (u nknown) date) unknown) (unknown) (no (unknown) (unknown) NEUROLOGIC: (units (un known) date) Denies weakness, unknown) headache, numbness, change in speech, confusion, (unknown) (no (unknown) (unknown) Narrative (units (unkn own) date) unknown) (unknown) (no (unknown) (unknown) Narrative: (units (unk nown) date) unknown) (unknown) (no (unknown) (unknown) Neut # (Auto) (units ( unknown) date) 4500 (6398-6854) unknown) /uL (unknown) (no (unknown) (unknown) Neut % (Auto) (units ( unknown) date) 60.5 (50-75) % unknown) (unknown) (no (unknown) (unknown) No Action (units (unkn own) date) unknown) (unknown) (no (unknown) (unknown) No Known Drug (units ( unknown) date) Allergies Allergy unknown) Unknown Verified 01/30/23 16:51 (unknown) (no (unknown) (unknown) Obesity (BMI (units (u nknown) date) 35.0-39.9 without unknown) comorbidity) (unknown) (no (unknown) (unknown) Occipital (units (unkn own) date) neuralgia unknown) (unknown) (no (unknown) (unknown) Ondansetron HCl (units (unknown) date) (Ondansetron 4 Mg unknown) Odt) 4 mg PO NOW PRN (unknown) (no (unknown) (unknown) Ondansetron HCl (units (unknown) date) (Ondansetron 4 unknown) Mg/2 Ml Inj) 4 mg IV NOW PRN (unknown) (no (unknown) (unknown) Ordered: (units (unkno wn) date) unknown) (unknown) (no (unknown) (unknown) Orders (units (unkno wn) date) unknown) (unknown) (no (unknown) (unknown) Osteomyelitis (units ( unknown) date) (-1999) unknown) (unknown) (no (unknown) (unknown) Oxygen Delivery (units (unknown) date) Method Room Air unknown) 01/30/23 16:47 (unknown) (no (unknown) (unknown) Oxygen Delivery (units (unknown) date) Method Room Air unknown) (unknown) (no (unknown) (unknown) PRN Reason: (units (un known) date) Nausea And unknown) Vomiting (unknown) (no (unknown) (unknown) PSYCHIATRIC: No (units (unknown) date) concerning unknown) psychosocial issues. (unknown) (no (unknown) (unknown) Patient History (units (unknown) date) unknown) (unknown) (no (unknown) (unknown) Patient: (units (unkno wn) date) Bernie Rodriguez unknown) MR#: [id number] (unknown) (no (unknown) (unknown) Plt Count 327 (units ( unknown) date) (150-400) X103/uL unknown) (unknown) (no (unknown) (unknown) Point of Care (units ( unknown) date) Testing unknown) (unknown) (no (unknown) (unknown) Potassium 4.3 (units ( unknown) date) (3.4-5.1) mmol/L unknown) (unknown) (no (unknown) (unknown) Test (units (unknown) date) Results Negative unknown) (unknown) (no (unknown) (unknown) Prescriptions: (units (unknown) date) unknown) (unknown) (no (unknown) (unknown) Previous Rx's (units ( unknown) date) unknown) (unknown) (no (unknown) (unknown) Pulse Oximetry (units (unknown) date) 100 01/30/23 16:47 unknown) (unknown) (no (unknown) (unknown) Pulse Oximetry (units (unknown) date) 100 100 unknown) (unknown) (no (unknown) (unknown) Pulse Rate 86 (units ( unknown) date) 01/30/23 16:47 unknown) (unknown) (no (unknown) (unknown) Pulse Rate 86 81 (units (unknown) date) unknown) (unknown) (no (unknown) (unknown) RBC 4.38 (units (unkno wn) date) (4.0-5.2) X106/uL unknown) (unknown) (no (unknown) (unknown) RDW 13.4 (units (unkno wn) date) (11.6-14.8) % unknown) (unknown) (no (unknown) (unknown) RESPIRATORY: Clear (units (unknown) date) to auscultation. unknown) Breath sounds equal bilaterally. No wheezes, (unknown) (no (unknown) (unknown) RESPIRATORY: (units (u nknown) date) Denies dyspnea, unknown) cough, wheezing, hemoptysis, sputum. (unknown) (no (unknown) (unknown) Re-evaluations: (units (unknown) date) unknown) (unknown) (no (unknown) (unknown) Referrals: (units (unk nown) date) unknown) (unknown) (no (unknown) (unknown) Related Data (units (u nknown) date) unknown) (unknown) (no (unknown) (unknown) Respiratory Rate (units (unknown) date) 18 01/30/23 16:47 unknown) (unknown) (no (unknown) (unknown) Respiratory Rate (units (unknown) date) 18 20 unknown) (unknown) (no (unknown) (unknown) Review of Systems (units (unknown) date) unknown) (unknown) (no (unknown) (unknown) Rh negative state (units (unknown) date) in antepartum unknown) period (unknown) (no (unknown) (unknown) Rx Instructions: (units (unknown) date) unknown) (unknown) (no (unknown) (unknown) SKIN: Denies (units (u nknown) date) rash, skin unknown) lesions, or other (unknown) (no (unknown) (unknown) SKIN: No rash or (units (unknown) date) erythema of unknown) visible areas (unknown) (no (unknown) (unknown) Julia Jonas DO (units (unknown) date) [Primary Care unknown) Provider] (unknown) (no (unknown) (unknown) See Rx (units (unkno wn) date) Instructions unknown) .ROUTE .COMPLEX Qty: 50 0RF (unknown) (no (unknown) (unknown) See Rx (units (unkno wn) date) Instructions unknown) .ROUTE .MEDSUPPLY Qty: 1 0RF (unknown) (no (unknown) (unknown) See Rx (units (unkno wn) date) Instructions unknown) .Route Qty: 100 3RF (unknown) (no (unknown) (unknown) Signed By: (units (unk nown) date) unknown) (unknown) (no (unknown) (unknown) Sister Depression (units (unknown) date) unknown) (unknown) (no (unknown) (unknown) Sister (units (unkno wn) date) Hypoglycemic unknown) disorder (unknown) (no (unknown) (unknown) Sodium 138 (units (unk nown) date) (137-145) mmol/L unknown) (unknown) (no (unknown) (unknown) Source: patient (units (unknown) date) unknown) (unknown) (no (unknown) (unknown) Stated complaint: (units (unknown) date) Kidney pain unknown) (unknown) (no (unknown) (unknown) Status post (units (un known) date) delivery unknown) (04/10/17) (unknown) (no (unknown) (unknown) Status post (units (un known) date) cholecystectomy unknown) (2017) (unknown) (no (unknown) (unknown) Status post (units (un known) date) incision and unknown) drainage (-1999) (unknown) (no (unknown) (unknown) Substance Use (units ( unknown) date) Type: does not use unknown) (unknown) (no (unknown) (unknown) Surgical History (units (unknown) date) (Reviewed 01/30/23 unknown) @ 18:44 by John Castillo DO) (unknown) (no (unknown) (unknown) Take as directed (units (unknown) date) by Physician unknown) (unknown) (no (unknown) (unknown) Temperature 98.5 (units (unknown) date) F 01/30/23 16:47 unknown) (unknown) (no (unknown) (unknown) Temperature 98.5 (units (unknown) date) F unknown) (unknown) (no (unknown) (unknown) Time Seen by (units (u nknown) date) Provider: 01/30/23 unknown) 18:04 (unknown) (no (unknown) (unknown) Total Bilirubin (units (unknown) date) 0.6 (0.2-1.3) unknown) mg/dL (unknown) (no (unknown) (unknown) Total Protein 7.4 (units (unknown) date) (6.3-8.2) g/dL unknown) (unknown) (no (unknown) (unknown) Treatments: (units (un known) date) saline, toradol unknown) (unknown) (no (unknown) (unknown) USE 1 STRIP TO (units (unknown) date) CHECK GLUCOSE unknown) TWICE DAILY OR NEEDED FOR SHAKINESS. (unknown) (no (unknown) (unknown) USE 1 TO CHECK (units (unknown) date) GLUCOSE TWICE unknown) DAILY OR NEEDED FOR SHAKINESS (unknown) (no (unknown) (unknown) Urine Bacteria (units (unknown) date) Moderate (10-30) H unknown) (None) (unknown) (no (unknown) (unknown) Urine Culture (units ( unknown) date) Stat unknown) (unknown) (no (unknown) (unknown) Urine Dip (units (unkn own) date) unknown) (unknown) (no (unknown) (unknown) Urine Microscopic (units (unknown) date) Stat unknown) (unknown) (no (unknown) (unknown) Urine RBC (units (unkn own) date) 30-100/hpf H unknown) (0-5/HPF) (unknown) (no (unknown) (unknown) Urine Specific (units (unknown) date) [place] 1.025 unknown) (unknown) (no (unknown) (unknown) Urine WBC 1-5/hpf (units (unknown) date) (0-5/HPF) unknown) (unknown) (no (unknown) (unknown) Vital Signs - 8 (units (unknown) date) hr unknown) (unknown) (no (unknown) (unknown) Vital Signs (units (un known) date) unknown) (unknown) (no (unknown) (unknown) Vital signs: (units (u nknown) date) unknown) (unknown) (no (unknown) (unknown) WBC 7.4 (units (unkno wn) date) (4.5-11.0) X103/uL unknown) (unknown) (no (unknown) (unknown) [Embedded Image (units (unknown) date) Not Available] unknown) (unknown) (no (unknown) (unknown) absence of (units (unk nown) date) obvious unknown) provocation or palliation. She denies systemic complaints (unknown) (no (unknown) (unknown) additional (units (unk nown) date) outpatient follow unknown) up (unknown) (no (unknown) (unknown) antibiotic (she (units (unknown) date) can not recall unknown) what it is but is calling her for this (unknown) (no (unknown) (unknown) been reviewed (units ( unknown) date) with patient as unknown) well as indications for ED re-evaluation and (unknown) (no (unknown) (unknown) blood sugar (units (un known) date) diagnostic (True unknown) #50 ea 01/01/23 (unknown) (no (unknown) (unknown) blood-glucose (units ( unknown) date) meter (Blood unknown) Glucose #1 ea 01/01/23 (unknown) (no (unknown) (unknown) check blood sugar (units (unknown) date) twice a day or unknown) when shakey (unknown) (no (unknown) (unknown) dizziness. (units (unk nown) date) unknown) (unknown) (no (unknown) (unknown) episodes of (units (un known) date) severe right flank unknown) pain with some radiation around her side in the (unknown) (no (unknown) (unknown) findings, notably (units (unknown) date) no CVA tenderness, unknown) right upper quadrant pain or abdominal pain (unknown) (no (unknown) (unknown) gram solution (units ( unknown) date) (Golytely) unknown) (unknown) (no (unknown) (unknown) gram-22.74 (units (unk nown) date) gram-6.74 unknown) gram-5.86 (unknown) (no (unknown) (unknown) her urine tested (units (unknown) date) and was found to unknown) have a UTI and was placed on 7 days of an (unknown) (no (unknown) (unknown) ibuprofen 600 mg (units (unknown) date) tablet 600 mg PO unknown) Q6H PRN pain or cramping 03/20/21 (unknown) (no (unknown) (unknown) ibuprofen 600 mg (units (unknown) date) tablet unknown) (unknown) (no (unknown) (unknown) icterus. No (units (un known) date) injection or unknown) drainage. (unknown) (no (unknown) (unknown) information). She (units (unknown) date) took pills unknown) medications as directed and states that her (unknown) (no (unknown) (unknown) lancets #100 ea (units (unknown) date) 01/09/22 unknown) (unknown) (no (unknown) (unknown) meclizine 25 mg (units (unknown) date) tablet 25 mg PO unknown) BID PRN dizziness #14 tabs 03/20/22 (unknown) (no (unknown) (unknown) meclizine 25 mg (units (unknown) date) tablet unknown) (unknown) (no (unknown) (unknown) mild distress. (units (unknown) date) unknown) (unknown) (no (unknown) (unknown) musculoskeletal (units (unknown) date) versus other unknown) (unknown) (no (unknown) (unknown) normal, urine (units ( unknown) date) negative unknown) (unknown) (no (unknown) (unknown) notes hematuria (units (unknown) date) and some bacteria unknown) but no classic UTI findings, no leukocytosis (unknown) (no (unknown) (unknown) omeprazole 20 mg (units (unknown) date) capsule,delayed 20 unknown) mg PO DAILY #90 caps 01/01/23 (unknown) (no (unknown) (unknown) omeprazole 20 mg (units (unknown) date) capsule,delayed unknown) release(DR/EC) (unknown) (no (unknown) (unknown) ondansetron 4 mg (units (unknown) date) disintegrating 4 unknown) mg PO Q8H PRN nausea and 03/20/22 (unknown) (no (unknown) (unknown) ondansetron 4 mg (units (unknown) date) tablet,disintegrat unknown) ing (unknown) (no (unknown) (unknown) or discharge. She (units (unknown) date) is had no trauma unknown) or injury (unknown) (no (unknown) (unknown) or left shift, no (units (unknown) date) signs of anemia, unknown) electrolytes and renal function within (unknown) (no (unknown) (unknown) peg (units (unkno wn) date) 3350-electrolytes unknown) 236 240 ml PO Q10M #4,000 mL 01/06/23 (unknown) (no (unknown) (unknown) peg (units (unkno wn) date) 3350-electrolytes unknown) [Golytely] 236-22.74-6.74 -5.86 gram recon soln (unknown) (no (unknown) (unknown) presents with a (units (unknown) date) chief complaint of unknown) severe right-sided flank pain off and on for (unknown) (no (unknown) (unknown) rales, or (units (unkn own) date) rhonchi. unknown) (unknown) (no (unknown) (unknown) release (units (unkno wn) date) unknown) (unknown) (no (unknown) (unknown) seizures, (units (unkn own) date) incoordination. unknown) (unknown) (no (unknown) (unknown) such as fever, (units (unknown) date) chills nor nausea unknown) or vomiting. She denies any vaginal bleeding (unknown) (no (unknown) (unknown) tablet vomiting (units (unknown) date) #14 tabs unknown) (unknown) (no (unknown) (unknown) the past few (units (u nknown) date) days. About 2 unknown) weeks ago she would presented to an outside facility (unknown) (no (unknown) (unknown) tonsillar (units (unkn own) date) hypertrophy or unknown) exudate. Airway patent. (unknown) (no (unknown) (unknown) tramadol 50 mg (units (unknown) date) tablet 50 mg PO unknown) Q8H PRN pain #20 tabs 06/14/22 (unknown) (no (unknown) (unknown) tramadol 50 mg (units (unknown) date) tablet unknown) (unknown) (no (unknown) (unknown) urinary symptoms (units (unknown) date) have improved but unknown) in the past few days she is been having (unknown) (no (unknown) (unknown) with classic (units (u nknown) date) urine symptoms unknown) including dysuria, frequency and urgency. She had Result panel 208 (unknown) (no (unknown) (unknown) (no value) (units (unk nown) date) unknown) (unknown) (no (unknown) (unknown) #30 tabs (units (unkno wn) date) unknown) (unknown) (no (unknown) (unknown) <Electronically (units (unknown) date) signed by John unknown) Emory Castillo> (unknown) (no (unknown) (unknown) (DME) True Metrix (units (unknown) date) Glucose Test Strip unknown) Strip (unknown) (no (unknown) (unknown) (DME) (units (unkno wn) date) blood-glucose unknown) meter [Blood Glucose Monitoring] Kit (unknown) (no (unknown) (unknown) (DME) lancets (units ( unknown) date) Misc unknown) (unknown) (no (unknown) (unknown) *If you do not (units (unknown) date) have a primary unknown) care provider please contact the [facility] (unknown) (no (unknown) (unknown) *Please continue (units (unknown) date) to take your unknown) regular medications as directed. (unknown) (no (unknown) (unknown) *Please follow up (units (unknown) date) with your primary unknown) care provider in 2-3 days, call for an (unknown) (no (unknown) (unknown) *Return to (units (unk nown) date) Emergency unknown) Department if you should have any new, worsening or (unknown) (no (unknown) (unknown) *What to do: (units (u nknown) date) unknown) (unknown) (no (unknown) (unknown) *You have been (units (unknown) date) diagnosed with unknown) [acute flank pain. As we discussed your urine (unknown) (no (unknown) (unknown) [id number] (units (unkno wn) date) unknown) (unknown) (no (unknown) (unknown) 01/30/23 01/30/23 (units (unknown) date) 01/30/23 unknown) Range/Units (unknown) (no (unknown) (unknown) 01/30/23 17:17 (units (unknown) date) unknown) (unknown) (no (unknown) (unknown) 01/30/23 18:42 (units (unknown) date) unknown) (unknown) (no (unknown) (unknown) 01/30/23 (units (unkno wn) date) unknown) (unknown) (no (unknown) (unknown) 01/31/23 0214 (units ( unknown) date) unknown) (unknown) (no (unknown) (unknown) 1 tab PO Q4-6H (units (unknown) date) PRN (Reason: pain) unknown) Qty: 10 0RF (unknown) (no (unknown) (unknown) 10 mg PO Q6H PRN (units (unknown) date) (Reason: pain) unknown) Qty: 14 0RF (unknown) (no (unknown) (unknown) 12 point review (units (unknown) date) of systems is unknown) negative except for those stated above (unknown) (no (unknown) (unknown) 17:00 17:17 17:17 (units (unknown) date) unknown) (unknown) (no (unknown) (unknown) 18:10 01/30/23 (units (unknown) date) unknown) (unknown) (no (unknown) (unknown) 18:30 01/30/23 (units (unknown) date) unknown) (unknown) (no (unknown) (unknown) 18:30 (units (unkno wn) date) unknown) (unknown) (no (unknown) (unknown) 19:00 01/30/23 (units (unknown) date) unknown) (unknown) (no (unknown) (unknown) 19:30 (units (unkno wn) date) unknown) (unknown) (no (unknown) (unknown) 20 mg PO DAILY (units (unknown) date) Qty: 90 3RF unknown) (unknown) (no (unknown) (unknown) 200 mg PO BID 10 (units (unknown) date) Days Qty: 20 0RF unknown) (unknown) (no (unknown) (unknown) 20:00 01/30/23 (units (unknown) date) unknown) (unknown) (no (unknown) (unknown) 20:30 01/30/23 (units (unknown) date) unknown) (unknown) (no (unknown) (unknown) 21:00 (units (unkno wn) date) unknown) (unknown) (no (unknown) (unknown) 21:33 (units (unkno wn) date) unknown) (unknown) (no (unknown) (unknown) 240 ml PO Q10M (units (unknown) date) Qty: 4000 0RF unknown) (unknown) (no (unknown) (unknown) 25 mg PO BID PRN (units (unknown) date) (Reason: unknown) dizziness) Qty: 14 0RF (unknown) (no (unknown) (unknown) 32-year-old (units (un known) date) female nonsmoker unknown) with noncontributory chronic medical history (unknown) (no (unknown) (unknown) 4 mg PO Q8H PRN (units (unknown) date) (Reason: nausea unknown) and vomiting) Qty: 14 0RF (unknown) (no (unknown) (unknown) 4 mg PO TID-QID (units (unknown) date) PRN (Reason: unknown) nausea and vomiting) Qty: 10 0RF (unknown) (no (unknown) (unknown) 50 mg PO Q8H PRN (units (unknown) date) (Reason: pain) unknown) Qty: 20 0RF (unknown) (no (unknown) (unknown) 600 mg PO Q6H PRN (units (unknown) date) (Reason: pain or unknown) cramping) Qty: 30 2RF (unknown) (no (unknown) (unknown) ALT 25 (<35) IU/L (units (unknown) date) unknown) (unknown) (no (unknown) (unknown) AST 21 (14-36) (units (unknown) date) IU/L unknown) (unknown) (no (unknown) (unknown) Activity (units (unkno wn) date) Restrictions/Addit unknown) ional Instructions: (unknown) (no (unknown) (unknown) Acute flank pain (units (unknown) date) unknown) (unknown) (no (unknown) (unknown) Admin: 01/30/23 (units (unknown) date) 18:47 Dose: 1,000 unknown) mls/hr (unknown) (no (unknown) (unknown) Age/Sex: 32 / F (units (unknown) date) unknown) (unknown) (no (unknown) (unknown) Albumin 4.3 (units (un known) date) (3.5-5.0) g/dL unknown) (unknown) (no (unknown) (unknown) Albumin/Globulin (units (unknown) date) Ratio 1.4 unknown) (1.0-2.8) (unknown) (no (unknown) (unknown) Alkaline (units (unkno wn) date) Phosphatase 37 L unknown) (38-126) U/L (unknown) (no (unknown) (unknown) Allergies (units (unkn own) date) unknown) (unknown) (no (unknown) (unknown) Allergy/AdvReac (units (unknown) date) Type Severity unknown) Reaction Status Date / Time (unknown) (no (unknown) (unknown) Anemia (-2017) (units (unknown) date) unknown) (unknown) (no (unknown) (unknown) Anxiety (units (unkno wn) date) (07/09/16) unknown) (unknown) (no (unknown) (unknown) Anxiety (units (unkno wn) date) unknown) (unknown) (no (unknown) (unknown) BACK: Nontender (units (unknown) date) without deformity unknown) or crepitance. No flank tenderness. (unknown) (no (unknown) (unknown) BUN 13 (7-17) (units ( unknown) date) mg/dL unknown) (unknown) (no (unknown) (unknown) BUN/Creatinine (units (unknown) date) Ratio 18.3 (6-22) unknown) (unknown) (no (unknown) (unknown) Baso # (Auto) 0 (units (unknown) date) (0-100) /uL unknown) (unknown) (no (unknown) (unknown) Baso % (Auto) 0.6 (units (unknown) date) (0-2) % unknown) (unknown) (no (unknown) (unknown) Bedside Urine (units ( unknown) date) Bilirubin - unknown) Negative (unknown) (no (unknown) (unknown) Bedside Urine (units ( unknown) date) Glucose Negative unknown) (unknown) (no (unknown) (unknown) Bedside Urine (units ( unknown) date) Ketone - Negative unknown) (unknown) (no (unknown) (unknown) Bedside Urine (units ( unknown) date) Leukocytes - unknown) Negative (unknown) (no (unknown) (unknown) Bedside Urine (units ( unknown) date) Nitrite - Negative unknown) (unknown) (no (unknown) (unknown) Bedside Urine (units ( unknown) date) Occult Blood unknown) (unknown) (no (unknown) (unknown) Bedside Urine (units ( unknown) date) Protein +/- 15 unknown) (unknown) (no (unknown) (unknown) Bedside Urine (units ( unknown) date) Urobilinogen +/- unknown) 1mg (unknown) (no (unknown) (unknown) Bedside Urine pH (units (unknown) date) 6.0 unknown) (unknown) (no (unknown) (unknown) Biliary colic (units ( unknown) date) unknown) (unknown) (no (unknown) (unknown) Blood Pressure (units (unknown) date) 122/80 131/82 unknown) (unknown) (no (unknown) (unknown) Blood Pressure (units (unknown) date) 128/90 01/30/23 unknown) 16:47 (unknown) (no (unknown) (unknown) Blood Pressure (units (unknown) date) unknown) (unknown) (no (unknown) (unknown) CARDIOVASCULAR: (units (unknown) date) Denies chest pain, unknown) palpitations, orthopnea, edema, (unknown) (no (unknown) (unknown) CARDIOVASCULAR: (units (unknown) date) Regular rate and unknown) rhythm without murmurs, gallops, or rubs. (unknown) (no (unknown) (unknown) CC: 32-year-old (units (unknown) date) female with unknown) episodic, colicky right flank pain (unknown) (no (unknown) (unknown) CT kidney ureter (units (unknown) date) bladder (KUB) Stat unknown) (unknown) (no (unknown) (unknown) Calcium 8.7 (units (un known) date) (8.4-10.2) mg/dL unknown) (unknown) (no (unknown) (unknown) Carbon Dioxide 30 (units (unknown) date) (22-32) mmol/L unknown) (unknown) (no (unknown) (unknown) Chief complaint: (units (unknown) date) Urogenital-Female unknown) (unknown) (no (unknown) (unknown) Chloride 105 (units (u nknown) date) (98-107) mmol/L unknown) (unknown) (no (unknown) (unknown) Cholelithiasis (units (unknown) date) unknown) (unknown) (no (unknown) (unknown) Chronic headaches (units (unknown) date) unknown) (unknown) (no (unknown) (unknown) Clinical (units (unkno wn) date) Impression: unknown) (unknown) (no (unknown) (unknown) Complete Blood (units (unknown) date) Count AUTO DIFF unknown) Stat (unknown) (no (unknown) (unknown) Complicating (units (u nknown) date) co-morbidities: unknown) BMI 35, recent treatment of UTI (Macrobid) (unknown) (no (unknown) (unknown) Comprehensive (units ( unknown) date) Metabolic Panel unknown) Stat (unknown) (no (unknown) (unknown) Course (units (unkno wn) date) unknown) (unknown) (no (unknown) (unknown) Creatinine 0.71 (units (unknown) date) (0.52-1.04) mg/dL unknown) (unknown) (no (unknown) (unknown) : 1990 (units (unknown) date) Acct:[id number] unknown) (unknown) (no (unknown) (unknown) Data collected (units (unknown) date) from: Patient unknown) (unknown) (no (unknown) (unknown) Date of Service: (units (unknown) date) 01/30/23 unknown) (unknown) (no (unknown) (unknown) Departure (units (unkn own) date) unknown) (unknown) (no (unknown) (unknown) Differential (units (u nknown) date) considered, but unknown) not limited to: Pyelonephritis, kidney stone, (unknown) (no (unknown) (unknown) Discharge Plan (units (unknown) date) unknown) (unknown) (no (unknown) (unknown) Discontinued (units (u nknown) date) Medications unknown) (unknown) (no (unknown) (unknown) Discussion: (units (un known) date) Patient with flank unknown) pain that is largely colicky in nature with (unknown) (no (unknown) (unknown) Disposition: see (units (unknown) date) below, along with unknown) detailed discharge instructions that have (unknown) (no (unknown) (unknown) Documented By: (units (unknown) date) [facility]U unknown) (unknown) (no (unknown) (unknown) Documented By: KM (units (unknown) date) unknown) (unknown) (no (unknown) (unknown) Documented By: (units (unknown) date) RLS unknown) (unknown) (no (unknown) (unknown) Dose Instruction: (units (unknown) date) unknown) (unknown) (no (unknown) (unknown) Dysthymia (units (unkn own) date) (07/09/16) unknown) (unknown) (no (unknown) (unknown) ED Orders (units (unkn own) date) unknown) (unknown) (no (unknown) (unknown) ENT: Nose without (units (unknown) date) bleeding, purulent unknown) drainage. Throat without erythema, (unknown) (no (unknown) (unknown) ER Physician: (units ( unknown) date) John Castillo D.O. unknown) (unknown) (no (unknown) (unknown) EXTREMITIES: No (units (unknown) date) edema or joint unknown) tenderness. (unknown) (no (unknown) (unknown) EYES: Pupils (units (u nknown) date) equal round and unknown) reactive. Extraocular motions intact. No scleral (unknown) (no (unknown) (unknown) Emergency Report (units (unknown) date) unknown) (unknown) (no (unknown) (unknown) Eos # (Auto) 300 (units (unknown) date) (0-450) /uL unknown) (unknown) (no (unknown) (unknown) Eos % (Auto) 3.6 (units (unknown) date) (2-4) % unknown) (unknown) (no (unknown) (unknown) Esterase (units (unkno wn) date) unknown) (unknown) (no (unknown) (unknown) Estimated GFR > (units (unknown) date) 60 (>60) mL/min unknown) (unknown) (no (unknown) (unknown) Exam Narrative: (units (unknown) date) unknown) (unknown) (no (unknown) (unknown) Exam documented (units (unknown) date) above, pertinent unknown) findings include: No significant abnormal (unknown) (no (unknown) (unknown) Exam (units (unkno wn) date) unknown) (unknown) (no (unknown) (unknown) Exposure to (units (un known) date) hepatitis B unknown) (-2015) (unknown) (no (unknown) (unknown) Family History (units (unknown) date) (Reviewed 01/30/23 unknown) @ 18:44 by John Castillo DO) (unknown) (no (unknown) (unknown) Father (units (unknown) date) Myocardial unknown) infarction (unknown) (no (unknown) (unknown) GASTROINTESTINAL: (units (unknown) date) Abdomen soft, unknown) non-tender, nondistended. (unknown) (no (unknown) (unknown) GASTROINTESTINAL: (units (unknown) date) See HPI unknown) (unknown) (no (unknown) (unknown) GENERAL: See HPI (units (unknown) date) unknown) (unknown) (no (unknown) (unknown) GENERAL: [32] (units ( unknown) date) year old patient unknown) appears stated age. Well-developed patient, in (unknown) (no (unknown) (unknown) : See HPI (units (un known) date) unknown) (unknown) (no (unknown) (unknown) General (units (unkno wn) date) unknown) (unknown) (no (unknown) (unknown) Globulin 3.1 (units (u nknown) date) (1.7-4.1) g/dL unknown) (unknown) (no (unknown) (unknown) Glucose 103 H (units ( unknown) date) (70-100) mg/dL unknown) (unknown) (no (unknown) (unknown) Grandfather (units (un known) date) Unknown unknown) whether patient has any health problems (unknown) (no (unknown) (unknown) Grandmother (units (un known) date) Twins, unknown) both liveborn (unknown) (no (unknown) (unknown) Grandmother (units (un known) date) Unknown unknown) whether patient has any health problems (unknown) (no (unknown) (unknown) H/O (units (u nknown) date) section unknown) complicating (unknown) (no (unknown) (unknown) H/O wisdom tooth (units (unknown) date) extraction () unknown) (unknown) (no (unknown) (unknown) HEAD: Atraumatic. (units (unknown) date) Normocephalic. unknown) (unknown) (no (unknown) (unknown) HEENT: Denies (units ( unknown) date) sinus pain, ear unknown) pain, sore throat, difficulty swallowing, (unknown) (no (unknown) (unknown) HPI - Female (units (u nknown) date) Genitourinary unknown) (unknown) (no (unknown) (unknown) HPI Narrative: (units (unknown) date) unknown) (unknown) (no (unknown) (unknown) Hct 38.5 (36-46) (units (unknown) date) % unknown) (unknown) (no (unknown) (unknown) Hgb 13.0 (units (unkno wn) date) (12.0-16.0) g/dL unknown) (unknown) (no (unknown) (unknown) History of (units (unk nown) date) Present Illness unknown) (unknown) (no (unknown) (unknown) History of (units (unk nown) date) primary unknown) section (-03/05/13) (unknown) (no (unknown) (unknown) Hydrocodone (units (un known) date) Bitart/Acetaminoph unknown) en (Hydrocodone/Acet 5/325 Prepack) 1 bottle MISC (unknown) (no (unknown) (unknown) Imaging studies (units (unknown) date) independently unknown) reviewed: No acute intra abdominal pathology (unknown) (no (unknown) (unknown) Initial Vital (units ( unknown) date) Signs unknown) (unknown) (no (unknown) (unknown) Initial Vital (units ( unknown) date) Signs: unknown) (unknown) (no (unknown) (unknown) [facility] (units (unknown) date) [address] unknown) [place] [address] (unknown) (no (unknown) (unknown) Ketorolac (units (unkn own) date) Tromethamine unknown) (Ketorolac 30 Mg/Ml Vial) 15 mg IV NOW ONE (unknown) (no (unknown) (unknown) Lab Data (units (unkno wn) date) unknown) (unknown) (no (unknown) (unknown) Lab Results (units (un known) date) unknown) (unknown) (no (unknown) (unknown) Lab Test results (units (unknown) date) independently unknown) reviewed as above. Pertinent findings: Urine (unknown) (no (unknown) (unknown) Labs: (units (unkno wn) date) unknown) (unknown) (no (unknown) (unknown) Last Admin: (units (un known) date) 01/30/23 18:46 unknown) Dose: 15 mg (unknown) (no (unknown) (unknown) Last Admin: (units (un known) date) 01/30/23 21:02 unknown) Dose: 4 mg (unknown) (no (unknown) (unknown) Last Admin: (units (un known) date) 01/30/23 21:03 unknown) Dose: 40 mg (unknown) (no (unknown) (unknown) Last Admin: (units (un known) date) 01/30/23 21:40 unknown) Dose: 1 bottle (unknown) (no (unknown) (unknown) Last Infusion: (units (unknown) date) 01/30/23 20:50 unknown) Dose: 0 mls/hr (unknown) (no (unknown) (unknown) Lipase 70 (units (unkn own) date) (23-300) U/L unknown) (unknown) (no (unknown) (unknown) Lipase Stat (units (un known) date) unknown) (unknown) (no (unknown) (unknown) Lymph # (Auto) (units (unknown) date) 2100 (6045-3607) unknown) /uL (unknown) (no (unknown) (unknown) Lymph % (Auto) (units (unknown) date) 29.0 (25-40) % unknown) (unknown) (no (unknown) (unknown) MCH 29.6 (26-34) (units (unknown) date) PG unknown) (unknown) (no (unknown) (unknown) MCHC 33.7 (30-36) (units (unknown) date) % unknown) (unknown) (no (unknown) (unknown) MCV 87.9 (80-100) (units (unknown) date) fL unknown) (unknown) (no (unknown) (unknown) MDM - Female (units (u nknown) date) Genitourinary unknown) (unknown) (no (unknown) (unknown) MDM Narrative (units ( unknown) date) unknown) (unknown) (no (unknown) (unknown) MUSCULOSKELETAL: (units (unknown) date) denies weakness, unknown) joint pain, or bony pain (unknown) (no (unknown) (unknown) Medical History (units (unknown) date) (Reviewed 01/30/23 unknown) @ 18:44 by John Castillo DO) (unknown) (no (unknown) (unknown) Medical decision (units (unknown) date) making narrative: unknown) (unknown) (no (unknown) (unknown) Medical records (units (unknown) date) reviewed: Prior unknown) notes reviewed in our EMR (unknown) (no (unknown) (unknown) Medication (units (unk nown) date) Instructions unknown) Recorded (unknown) (no (unknown) (unknown) Metrix Glucose (units (unknown) date) Test Strip) unknown) (unknown) (no (unknown) (unknown) Mode of arrival: (units (unknown) date) Ambulatory unknown) (unknown) (no (unknown) (unknown) Monitoring kit) (units (unknown) date) unknown) (unknown) (no (unknown) (unknown) Jenkins # (Auto) 500 (units (unknown) date) (0-900) /uL unknown) (unknown) (no (unknown) (unknown) Jenkins % (Auto) 6.3 (units (unknown) date) (3-14) % unknown) (unknown) (no (unknown) (unknown) Mother Diabetes (units (unknown) date) mellitus unknown) (unknown) (no (unknown) (unknown) NECK: Trachea (units ( unknown) date) midline. Non unknown) tender (unknown) (no (unknown) (unknown) NEURO: AOx3. (units (u nknown) date) unknown) (unknown) (no (unknown) (unknown) NEUROLOGIC: (units (un known) date) Denies weakness, unknown) headache, numbness, change in speech, confusion, (unknown) (no (unknown) (unknown) Narrative (units (unkn own) date) unknown) (unknown) (no (unknown) (unknown) Narrative: (units (unk nown) date) unknown) (unknown) (no (unknown) (unknown) Neut # (Auto) (units ( unknown) date) 4500 (3378-7017) unknown) /uL (unknown) (no (unknown) (unknown) Neut % (Auto) (units ( unknown) date) 60.5 (50-75) % unknown) (unknown) (no (unknown) (unknown) New (units (unkno wn) date) unknown) (unknown) (no (unknown) (unknown) No Action (units (unkn own) date) unknown) (unknown) (no (unknown) (unknown) No Known Drug (units ( unknown) date) Allergies Allergy unknown) Unknown Verified 01/30/23 16:51 (unknown) (no (unknown) (unknown) Obesity (BMI (units (u nknown) date) 35.0-39.9 without unknown) comorbidity) (unknown) (no (unknown) (unknown) Occipital (units (unkn own) date) neuralgia unknown) (unknown) (no (unknown) (unknown) Ondansetron HCl (units (unknown) date) (Ondansetron 4 Mg unknown) Odt Prepack) 1 bottle MISC SEEINSTR ONE (unknown) (no (unknown) (unknown) Ondansetron HCl (units (unknown) date) (Ondansetron 4 Mg unknown) Odt) 4 mg PO NOW PRN (unknown) (no (unknown) (unknown) Ondansetron HCl (units (unknown) date) (Ondansetron 4 unknown) Mg/2 Ml Inj) 4 mg IV NOW ONE (unknown) (no (unknown) (unknown) Ondansetron HCl (units (unknown) date) (Ondansetron 4 unknown) Mg/2 Ml Inj) 4 mg IV NOW PRN (unknown) (no (unknown) (unknown) Ordered: (units (unkno wn) date) unknown) (unknown) (no (unknown) (unknown) Orders (units (unkno wn) date) unknown) (unknown) (no (unknown) (unknown) Osteomyelitis (units ( unknown) date) (-1999) unknown) (unknown) (no (unknown) (unknown) Oxygen Delivery (units (unknown) date) Method Room Air unknown) 01/30/23 16:47 (unknown) (no (unknown) (unknown) Oxygen Delivery (units (unknown) date) Method Room Air unknown) (unknown) (no (unknown) (unknown) Oxygen Delivery (units (unknown) date) Method unknown) (unknown) (no (unknown) (unknown) PRN Reason: (units (un known) date) Nausea And unknown) Vomiting (unknown) (no (unknown) (unknown) PSYCHIATRIC: No (units (unknown) date) concerning unknown) psychosocial issues. (unknown) (no (unknown) (unknown) Pantoprazole (units (u nknown) date) Sodium unknown) (Pantoprazole 40 Mg Vial) 40 mg IV NOW ONE (unknown) (no (unknown) (unknown) Patient (units (o wn) date) Disposition: Home unknown) (unknown) (no (unknown) (unknown) Patient History (units (unknown) date) unknown) (unknown) (no (unknown) (unknown) Patient: (units (o wn) date) RodriguezBernie M unknown) MR#: [id number] (unknown) (no (unknown) (unknown) Plt Count 327 (units ( unknown) date) (150-400) X103/uL unknown) (unknown) (no (unknown) (unknown) Point of Care (units ( unknown) date) Testing unknown) (unknown) (no (unknown) (unknown) Potassium 4.3 (units ( unknown) date) (3.4-5.1) mmol/L unknown) (unknown) (no (unknown) (unknown) Test (units (unknown) date) Results Negative unknown) (unknown) (no (unknown) (unknown) Prescriptions: (units (unknown) date) unknown) (unknown) (no (unknown) (unknown) Previous Rx's (units ( unknown) date) unknown) (unknown) (no (unknown) (unknown) Pulse Oximetry (units (unknown) date) 100 01/30/23 16:47 unknown) (unknown) (no (unknown) (unknown) Pulse Oximetry (units (unknown) date) 100 unknown) (unknown) (no (unknown) (unknown) Pulse Oximetry 97 (units (unknown) date) 99 97 unknown) (unknown) (no (unknown) (unknown) Pulse Oximetry 98 (units (unknown) date) 96 97 unknown) (unknown) (no (unknown) (unknown) Pulse Oximetry 99 (units (unknown) date) unknown) (unknown) (no (unknown) (unknown) Pulse Rate 76 74 (units (unknown) date) 79 unknown) (unknown) (no (unknown) (unknown) Pulse Rate 77 (units ( unknown) date) unknown) (unknown) (no (unknown) (unknown) Pulse Rate 81 (units ( unknown) date) unknown) (unknown) (no (unknown) (unknown) Pulse Rate 86 (units ( unknown) date) 01/30/23 16:47 unknown) (unknown) (no (unknown) (unknown) Pulse Rate 88 80 (units (unknown) date) 77 unknown) (unknown) (no (unknown) (unknown) RBC 4.38 (units (unkno wn) date) (4.0-5.2) X106/uL unknown) (unknown) (no (unknown) (unknown) RDW 13.4 (units (unkno wn) date) (11.6-14.8) % unknown) (unknown) (no (unknown) (unknown) RESPIRATORY: Clear (units (unknown) date) to auscultation. unknown) Breath sounds equal bilaterally. No wheezes, (unknown) (no (unknown) (unknown) RESPIRATORY: (units (u nknown) date) Denies dyspnea, unknown) cough, wheezing, hemoptysis, sputum. (unknown) (no (unknown) (unknown) Re-evaluations: (units (unknown) date) Patient feeling unknown) better, pain controlled, tolerating orals (unknown) (no (unknown) (unknown) Referrals: (units (unk nown) date) unknown) (unknown) (no (unknown) (unknown) Related Data (units (u nknown) date) unknown) (unknown) (no (unknown) (unknown) Resource line at (units (unknown) date) [phone]. They unknown) will ask some questions about your medical (unknown) (no (unknown) (unknown) Respiratory Rate (units (unknown) date) 18 01/30/23 16:47 unknown) (unknown) (no (unknown) (unknown) Respiratory Rate (units (unknown) date) 20 20 unknown) (unknown) (no (unknown) (unknown) Respiratory Rate (units (unknown) date) unknown) (unknown) (no (unknown) (unknown) Review of Systems (units (unknown) date) unknown) (unknown) (no (unknown) (unknown) Rh negative state (units (unknown) date) in antepartum unknown) period (unknown) (no (unknown) (unknown) Rx Instructions: (units (unknown) date) unknown) (unknown) (no (unknown) (unknown) SEEINSTR ONE (units (u nknown) date) unknown) (unknown) (no (unknown) (unknown) SKIN: Denies (units (u nknown) date) rash, skin unknown) lesions, or other (unknown) (no (unknown) (unknown) SKIN: No rash or (units (unknown) date) erythema of unknown) visible areas (unknown) (no (unknown) (unknown) Julia Jonas DO (units (unknown) date) [Primary Care unknown) Provider] (unknown) (no (unknown) (unknown) See Rx (units (unkno wn) date) Instructions unknown) .ROUTE .COMPLEX Qty: 50 0RF (unknown) (no (unknown) (unknown) See Rx (units (unkno wn) date) Instructions unknown) .ROUTE .MEDSUPPLY Qty: 1 0RF (unknown) (no (unknown) (unknown) See Rx (units (unkno wn) date) Instructions unknown) .Route Qty: 100 3RF (unknown) (no (unknown) (unknown) Signed By: (units (unk nown) date) unknown) (unknown) (no (unknown) (unknown) Sister Depression (units (unknown) date) unknown) (unknown) (no (unknown) (unknown) Sister (units (unkno wn) date) Hypoglycemic unknown) disorder (unknown) (no (unknown) (unknown) Sodium 138 (units (unk nown) date) (137-145) mmol/L unknown) (unknown) (no (unknown) (unknown) Sodium Chloride (units (unknown) date) (Normal Saline unknown) 0.9%) 1,000 mls @ 1,000 mls/hr IV BOLUS ONE (unknown) (no (unknown) (unknown) Source: patient (units (unknown) date) unknown) (unknown) (no (unknown) (unknown) Stand Alone (units (un known) date) Forms: Patient unknown) Portal/API (unknown) (no (unknown) (unknown) Stated complaint: (units (unknown) date) Kidney pain unknown) (unknown) (no (unknown) (unknown) Status post (units (un known) date) delivery unknown) (04/10/17) (unknown) (no (unknown) (unknown) Status post (units (un known) date) cholecystectomy unknown) (2016) (unknown) (no (unknown) (unknown) Status post (units (un known) date) incision and unknown) drainage (-1999) (unknown) (no (unknown) (unknown) Stop: 01/30/23 (units (unknown) date) 18:43 unknown) (unknown) (no (unknown) (unknown) Stop: 01/30/23 (units (unknown) date) 19:41 unknown) (unknown) (no (unknown) (unknown) Stop: 01/30/23 (units (unknown) date) 20:49 unknown) (unknown) (no (unknown) (unknown) Substance Use (units ( unknown) date) Type: does not use unknown) (unknown) (no (unknown) (unknown) Surgical History (units (unknown) date) (Reviewed 01/30/23 unknown) @ 18:44 by John Castillo DO) (unknown) (no (unknown) (unknown) Take as directed (units (unknown) date) by Physician unknown) (unknown) (no (unknown) (unknown) Temperature 98.5 (units (unknown) date) F 01/30/23 16:47 unknown) (unknown) (no (unknown) (unknown) Time Seen by (units (u nknown) date) Provider: 01/30/23 unknown) 18:04 (unknown) (no (unknown) (unknown) Total Bilirubin (units (unknown) date) 0.6 (0.2-1.3) unknown) mg/dL (unknown) (no (unknown) (unknown) Total Protein 7.4 (units (unknown) date) (6.3-8.2) g/dL unknown) (unknown) (no (unknown) (unknown) Treatments: (units (un known) date) saline, toradol unknown) (unknown) (no (unknown) (unknown) USE 1 STRIP TO (units (unknown) date) CHECK GLUCOSE unknown) TWICE DAILY OR NEEDED FOR SHAKINESS. (unknown) (no (unknown) (unknown) USE 1 TO CHECK (units (unknown) date) GLUCOSE TWICE unknown) DAILY OR NEEDED FOR SHAKINESS (unknown) (no (unknown) (unknown) Urine Bacteria (units (unknown) date) Moderate (10-30) H unknown) (None) (unknown) (no (unknown) (unknown) Urine Dip (units (unkn own) date) unknown) (unknown) (no (unknown) (unknown) Urine RBC (units (unkn own) date) 30-100/hpf H unknown) (0-5/HPF) (unknown) (no (unknown) (unknown) Urine Specific (units (unknown) date) [place] 1.025 unknown) (unknown) (no (unknown) (unknown) Urine WBC 1-5/hpf (units (unknown) date) (0-5/HPF) unknown) (unknown) (no (unknown) (unknown) Vital Signs - 8 (units (unknown) date) hr unknown) (unknown) (no (unknown) (unknown) Vital Signs (units (un known) date) unknown) (unknown) (no (unknown) (unknown) Vital signs: (units (u nknown) date) unknown) (unknown) (no (unknown) (unknown) WBC 7.4 (units (unkno wn) date) (4.5-11.0) X103/uL unknown) (unknown) (no (unknown) (unknown) [ ] New (units (unkno wn) date) medication written unknown) as a paper prescription (unknown) (no (unknown) (unknown) [ ] No new (units (unk nown) date) medications given unknown) (unknown) (no (unknown) (unknown) [ x] New (units (unkno wn) date) medication unknown) prescriptions sent to your pharmacy: [ [facility]] (unknown) (no (unknown) (unknown) [Embedded Image (units (unknown) date) Not Available] unknown) (unknown) (no (unknown) (unknown) abnormalities to (units (unknown) date) suggest unknown) pancreatitis, gallbladder disease or liver disease. (unknown) (no (unknown) (unknown) absence of (units (unk nown) date) obvious unknown) provocation or palliation. She denies systemic complaints (unknown) (no (unknown) (unknown) additional (units (unk nown) date) outpatient follow unknown) up (unknown) (no (unknown) (unknown) antibiotic (she (units (unknown) date) can not recall unknown) what it is but is calling her for this (unknown) (no (unknown) (unknown) appointment. Let (units (unknown) date) them know you were unknown) seen in the Emergency Department and that we (unknown) (no (unknown) (unknown) ask that you be (units (unknown) date) seen in follow up. unknown) We will electronically transmit a record of (unknown) (no (unknown) (unknown) been reviewed (units ( unknown) date) with patient as unknown) well as indications for ED re-evaluation and (unknown) (no (unknown) (unknown) blood sugar (units (un known) date) diagnostic (True unknown) #50 ea 01/01/23 (unknown) (no (unknown) (unknown) blood-glucose (units ( unknown) date) meter (Blood unknown) Glucose #1 ea 01/01/23 (unknown) (no (unknown) (unknown) cefpodoxime 200 (units (unknown) date) mg tablet 200 mg unknown) PO BID 10 days #20 tabs 01/30/23 (unknown) (no (unknown) (unknown) cefpodoxime 200 (units (unknown) date) mg tablet unknown) (unknown) (no (unknown) (unknown) check blood sugar (units (unknown) date) twice a day or unknown) when shakey (unknown) (no (unknown) (unknown) concerning (units (unk nown) date) symptoms, such as unknown) [fever greater than 101 F, shaking chills, worsen (unknown) (no (unknown) (unknown) dizziness. (units (unk nown) date) unknown) (unknown) (no (unknown) (unknown) episodes of (units (un known) date) severe right flank unknown) pain with some radiation around her side in the (unknown) (no (unknown) (unknown) few days ago (units (u nknown) date) which raises the unknown) question of the possibility of ongoing urinary (unknown) (no (unknown) (unknown) findings, notably (units (unknown) date) no CVA tenderness, unknown) right upper quadrant pain or abdominal pain (unknown) (no (unknown) (unknown) gram solution (units ( unknown) date) (Golytely) unknown) (unknown) (no (unknown) (unknown) gram-22.74 (units (unk nown) date) gram-6.74 unknown) gram-5.86 (unknown) (no (unknown) (unknown) her urine tested (units (unknown) date) and was found to unknown) have a UTI and was placed on 7 days of an (unknown) (no (unknown) (unknown) highly suggestive (units (unknown) date) of kidney stone, unknown) however no stone was noted on imaging. She (unknown) (no (unknown) (unknown) history and help (units (unknown) date) get you set up unknown) with a doctor in the community. (unknown) (no (unknown) (unknown) hydrocodone 5 (units ( unknown) date) mg-acetaminophen unknown) 325 1 tab PO Q4-6H PRN pain #10 tabs 01/30/23 (unknown) (no (unknown) (unknown) hydrocodone-aceta (units (unknown) date) minophen 5-325 mg unknown) tablet (unknown) (no (unknown) (unknown) ibuprofen 600 mg (units (unknown) date) tablet 600 mg PO unknown) Q6H PRN pain or cramping 03/20/21 (unknown) (no (unknown) (unknown) ibuprofen 600 mg (units (unknown) date) tablet unknown) (unknown) (no (unknown) (unknown) icterus. No (units (un known) date) injection or unknown) drainage. (unknown) (no (unknown) (unknown) infection despite (units (unknown) date) currently unknown) reassuring labs. No serum abnormalities. Patient (unknown) (no (unknown) (unknown) information). She (units (unknown) date) took pills unknown) medications as directed and states that her (unknown) (no (unknown) (unknown) ing pain, (units (unkn own) date) persistent unknown) vomiting or other bothersome symptoms] (unknown) (no (unknown) (unknown) is had recent (units ( unknown) date) urine infection unknown) and had been on nitrofurantoin up until least a (unknown) (no (unknown) (unknown) ketorolac 10 mg (units (unknown) date) tablet 10 mg PO unknown) Q6H PRN pain #14 tabs 01/30/23 (unknown) (no (unknown) (unknown) ketorolac 10 mg (units (unknown) date) tablet unknown) (unknown) (no (unknown) (unknown) lancets #100 ea (units (unknown) date) 01/09/22 unknown) (unknown) (no (unknown) (unknown) meclizine 25 mg (units (unknown) date) tablet 25 mg PO unknown) BID PRN dizziness #14 tabs 03/20/22 (unknown) (no (unknown) (unknown) meclizine 25 mg (units (unknown) date) tablet unknown) (unknown) (no (unknown) (unknown) mg tablet (units (unkn own) date) unknown) (unknown) (no (unknown) (unknown) mild distress. (units (unknown) date) unknown) (unknown) (no (unknown) (unknown) musculoskeletal (units (unknown) date) versus other unknown) (unknown) (no (unknown) (unknown) must administer (units (unknown) date) with a meal/food unknown) (unknown) (no (unknown) (unknown) normal, urine (units ( unknown) date) negative unknown) (unknown) (no (unknown) (unknown) notes hematuria (units (unknown) date) and some bacteria unknown) but no classic UTI findings, no leukocytosis (unknown) (no (unknown) (unknown) omeprazole 20 mg (units (unknown) date) capsule,delayed 20 unknown) mg PO DAILY #90 caps 01/01/23 (unknown) (no (unknown) (unknown) omeprazole 20 mg (units (unknown) date) capsule,delayed unknown) release(DR/EC) (unknown) (no (unknown) (unknown) ondansetron 4 mg (units (unknown) date) disintegrating 4 unknown) mg PO Q8H PRN nausea and 03/20/22 (unknown) (no (unknown) (unknown) ondansetron 4 mg (units (unknown) date) disintegrating 4 unknown) mg PO TID-QID PRN nausea and 01/30/23 (unknown) (no (unknown) (unknown) ondansetron 4 mg (units (unknown) date) tablet,disintegrat unknown) ing (unknown) (no (unknown) (unknown) or discharge. She (units (unknown) date) is had no trauma unknown) or injury (unknown) (no (unknown) (unknown) or left shift, no (units (unknown) date) signs of anemia, unknown) electrolytes and renal function within (unknown) (no (unknown) (unknown) peg (units (unkno wn) date) 3350-electrolytes unknown) 236 240 ml PO Q10M #4,000 mL 01/06/23 (unknown) (no (unknown) (unknown) peg (units (unkno wn) date) 3350-electrolytes unknown) [Golytely] 236-22.74-6.74 -5.86 gram recon soln (unknown) (no (unknown) (unknown) presents with a (units (unknown) date) chief complaint of unknown) severe right-sided flank pain off and on for (unknown) (no (unknown) (unknown) radiation around (units (unknown) date) her side and unknown) hematuria noted on urine. Many elements are (unknown) (no (unknown) (unknown) rales, or (units (unkn own) date) rhonchi. unknown) (unknown) (no (unknown) (unknown) release (units (unkno wn) date) unknown) (unknown) (no (unknown) (unknown) require a (units (unkn own) date) specific or unknown) immediate intervention.] (unknown) (no (unknown) (unknown) scan are (units (unkno wn) date) reassuring and unknown) showed no kidney stones or other abnormality that would (unknown) (no (unknown) (unknown) seizures, (units (unkn own) date) incoordination. unknown) (unknown) (no (unknown) (unknown) shows only blood, (units (unknown) date) no current signs unknown) of infection and blood work as well as CT (unknown) (no (unknown) (unknown) such as fever, (units (unknown) date) chills nor nausea unknown) or vomiting. She denies any vaginal bleeding (unknown) (no (unknown) (unknown) tablet vomiting (units (unknown) date) #10 tabs unknown) (unknown) (no (unknown) (unknown) tablet vomiting (units (unknown) date) #14 tabs unknown) (unknown) (no (unknown) (unknown) the past few (units (u nknown) date) days. About 2 unknown) weeks ago she would presented to an outside facility (unknown) (no (unknown) (unknown) today's note if (units (unknown) date) your PCP is in our unknown) system (unknown) (no (unknown) (unknown) tonsillar (units (unkn own) date) hypertrophy or unknown) exudate. Airway patent. (unknown) (no (unknown) (unknown) tramadol 50 mg (units (unknown) date) tablet 50 mg PO unknown) Q8H PRN pain #20 tabs 06/14/22 (unknown) (no (unknown) (unknown) tramadol 50 mg (units (unknown) date) tablet unknown) (unknown) (no (unknown) (unknown) urinary symptoms (units (unknown) date) have improved but unknown) in the past few days she is been having (unknown) (no (unknown) (unknown) with classic (units (u nknown) date) urine symptoms unknown) including dysuria, frequency and urgency. 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 Deemed unknown) unsuitable for further studies. Social History date description facility 2023-01-01 00:00 Never smoked tobacco (finding) [facility] 2023-01-06 00:00 Never smoked tobacco (finding) [facility] 2023-01-30 00:00 Never smoked tobacco (finding) [facility] Vital Signs date measurement value units 2023-01-01 00:00 BMI 37.4 kg/m2 2023-01-01 00:00 BP_diastolic 78 mmHg 2023-01-01 00:00 BP_systolic 111 mmHg 2023-01-01 00:00 heart_rate 72 /min 2023-01-01 00:00 height_metric 165.1 cm 2023-01-01 00:00 height_standard 65 in 2023-01-01 00:00 o2_saturation 99 % 2023-01-01 00:00 temperature_metric 36.44 C 2023-01-01 00:00 temperature_standard 97.6 F 2023-01-01 00:00 weight_metric 102.05 kg 2023-01-01 00:00 weight_standard 224.98 lb 2023-01-06 00:00 BMI 37.5 kg/m2 2023-01-06 00:00 BP_diastolic 70 mmHg 2023-01-06 00:00 BP_systolic 110 mmHg 2023-01-06 00:00 heart_rate 86 /min 2023-01-06 00:00 height_metric 165.1 cm 2023-01-06 00:00 height_standard 65 in 2023-01-06 00:00 o2_saturation 99 % 2023-01-06 00:00 temperature_metric 37 C 2023-01-06 00:00 temperature_standard 98.6 F 2023-01-06 00:00 weight_metric 102.51 kg 2023-01-06 00:00 weight_standard 226 lb 2023-01-30 00:00 BMI 35.7 kg/m2 2023-01-30 00:00 BP_diastolic 82 mmHg 2023-01-30 00:00 BP_systolic 131 mmHg 2023-01-30 00:00 heart_rate 77 /min 2023-01-30 00:00 height_metric 165.1 cm 2023-01-30 00:00 height_standard 65 in 2023-01-30 00:00 o2_saturation 99 % 2023-01-30 00:00 respiration_rate 20 /min 2023-01-30 00:00 temperature_metric 36.94 C 2023-01-30 00:00 temperature_standard 98.5 F 2023-01-30 00:00 weight_metric 97.52 kg 2023-01-30 00:00 weight_standard 214.99 lb
[2023-03-09] MEDS ORDERED: ONDANSETRON ODT 4 MG TABLET TL STA (00:29)
[2023-03-09] MEDS ORDERED: oxyCODONE 5 MG TABLET PO STA (00:30)
[2023-03-09] MEDS ORDERED: diphenhydrAMINE INJ 50 MG/ML VIAL IM STA (02:05)
[2023-03-09] MEDS ORDERED: HYDROmorphone 1 MG/ML CARPUJECT IM STA (03:34)
[2023-03-09] MEDS ORDERED: oxyCODONE/ACET 5/325 Prepack 4 PO STA (04:37)
[2023-03-09 04:41] VITALS: BP 133/86
== END 2023-03-09 05:01 | disposition home or self-care (01) ==
LOC: EDUNIT# → ED 22:04
DX: R51.9 Headache, unspecified (principal); R11.0 Nausea; L29.9 Pruritus, unspecified; K13.0 Diseases of lips
CPT/HCPCS: 70450; 96372; 99283; 99284; A9270; J1170; J1200; Q0162

== ENCOUNTER 2024-06-24 21:45 | Emergency (ER) | payer MEDICAID ==
[2024-06-24 21:55] VITALS: BP 151/91; O2SAT 100
--- NOTE | 2024-06-24 22:02 | ED Physician Documentation ---
PD HPI CHEST PAIN - Stated complaint Stated Complaint: CHEST PX - Chief complaint Chief Complaint: Cardiac - History obtained from History obtained from: Patient - Additional information Additional information: She has a history of heart murmur, no other heart problems. Today she developed what she describes as a cold with sore throat, and took some OTC medication for that but then around 4:00 while at rest developed substernal chest pain radiating to the left side associated with anxiety and shortness of breath. She had a recent car trip but just within the state. No history of other heart or lung disease other than the murmur. She denies pedal edema or calf pain but states her left leg feels tingly. PD PAST MEDICAL HISTORY - Past Medical History Past Medical History: Yes Cardiovascular: None Respiratory: Asthma Neuro: Headaches Endocrine/Autoimmune: None GI: None [employer]: None : None HEENT: None Psych: None Musculoskeletal: None Derm: None - Past Surgical History Past Surgical History: Yes General: Cholecystectomy /[employer]: section - Present Medications Home Medications: Ambulatory Orders Medication Instructions Recorded Confirmed Ibuprofen [Advil] 800 mg PO DAILY PRN 04/25/19 04/25/19 Famotidine [Pepcid] 20 mg PO BID #60 tablet 04/27/19 Hydrocodone/Acetaminophen 1 each PO Q4H PRN #21 tablet 04/27/19 [Hydrocodone-Acetamin 5-325 mg] metroNIDAZOLE [Flagyl] 500 mg PO Q8H #30 tablet 04/27/19 Oxycodone HCl/Acetaminophen 1 - 2 each PO Q6HR PRN #20 tablet 03/09/23 [Percocet 5-325 mg Tablet] Promethazine [Phenergan] 25 mg PO Q6H PRN #14 tab 03/09/23 - Allergies Allergies/Adverse Reactions: Allergies Allergy/AdvReac Type Severity Reaction Status Date / Time No Known Drug Allergies Allergy Verified 06/24/24 21:48 - Social History Does the pt smoke?: No Smoking Status: Never smoker Does the pt drink ETOH?: No Does the pt have substance abuse?: No - Immunizations Immunizations are current?: Yes - POLST Patient has POLST: No POLST Status: Full Code PD ED PE NORMAL - Vitals Vital signs reviewed: Yes - General General: Alert and oriented X 3, No acute distress - HEENT HEENT: PERRL, EOMI - Neck Neck: Supple, no meningeal sign, No bony TTP - Cardiac Cardiac: RRR, No murmur - Respiratory Respiratory: No respiratory distress, Clear bilaterally - Abdomen Abdomen: Non tender - Extremities Extremities: No edema, No calf tenderness / cord - Neuro Neuro: Alert and oriented X 3, Normal speech Results - Vitals Vitals: Vital Signs - 24 hr 06/24/24 21:48 Temperature 36.8 C Heart Rate 114 H Respiratory 24 Rate Blood Pressure 151/91 H O2 Saturation 100 Oxygen O2 Source Room air - Rads (name of study) Single view chest x-ray is unremarkable. Relevant Findings:: Final report received, EMP independent interpretation of test PD Medical Decision Making - ED course ED course: She presents with substernal chest pain rating to the left with a nonischemic EKG. She is modestly tachycardic. That combined with the recent car trip and shortness of breath would suggest PE needs to be considered so a D-dimer was added in addition to usual chest pain testing and she also has a URI. Care to Dr. Zavala pending results of diagnostic studies. Departure - Departure Clinical Impression: Chest pain Forms: PCP List
--- NOTE | 2024-06-24 22:28 | XRAY Report ---
PROCEDURE: Chest 1V INDICATIONS: Chest pain TECHNIQUE: One view of the chest was acquired. COMPARISON: None. FINDINGS: Surgical changes and devices: None. Lungs and pleura: No pleural effusions or pneumothorax. Lungs are clear. Mediastinum: Mediastinal contours appear normal. Heart size is normal. Bones and chest wall: No suspicious bony lesions. Overlying soft tissues appear unremarkable. IMPRESSION: No acute cardiopulmonary process. Reviewed by: Carlton Farfan MD on 06/24/2024 10:26 PM PDT Approved by: Carlton Farfan MD on 06/24/2024 10:26 PM PDT Station ID: [id number]
[2024-06-24] MEDS: KETOROLAC 60 MG/2 ML VIAL IM STA (22:34)
[2024-06-24] MEDS: KETOROLAC 15 MG/ML VIAL IVP STA (22:35)
[2024-06-24 22:41] LABS: BASOPHILS % (AUTO) 0.4 %; EOSINOPHILS # (AUTO) 0.3 10^3/uL (0.0-0.7); EOSINOPHILS % (AUTO) 2.7 %; HCT - HEMATOCRIT 39.5 % (37.0-47.0); HGB - HEMOGLOBIN 13.1 g/dL (12.0-16.0); LYMPHOCYTES # (AUTO) 1.2 10^3/uL (1.5-3.5); LYMPHOCYTES % (AUTO) 12.4 %; MEAN CORPUSCULAR HEMOGLOBIN 29.8 pg (27.0-31.0); MEAN CORPUSCULAR HGB CONC 33.2 g/dL (32.0-36.0); MEAN CORPUSCULAR VOLUME 89.8 fL (81.0-99.0); MEAN PLATELET VOLUME 9.5 fL (7.9-10.8); MONOCYTES # (AUTO) 0.4 10^3/uL (0.0-1.0); MONOCYTES % (AUTO) 4.5 %; NEUTROPHILS # (AUTO) 7.6 10^3/uL (1.5-6.6); NEUTROPHILS % (AUTO) 79.8 %; PLT - PLATELET COUNT 280 10^3/uL (130-450); RED CELL DISTRIBUTION WIDTH 12.9 % (12.0-15.0); WHITE BLOOD COUNT 9.5 x10^3/uL (4.8-10.8)
[2024-06-24 23:01] LABS: ALBUMIN 4.5 g/dL (3.2-5.5); ALBUMIN/GLOBULIN RATIO 1.9 (1.0-2.2); ALKALINE PHOSPHATASE 29 IU/L (42-121); ALT ALANINE AMINOTRANSFERASE 32 IU/L (10-60); AST ASPARTATE AMINOTRANSFERASE 16 IU/L (10-42); BILIRUBIN,TOTAL 0.7 mg/dL (0.2-1.0); BUN - BLOOD UREA NITROGEN 10 mg/dL (6-20); CALCIUM 9.7 mg/dL (8.5-10.3); CARBON DIOXIDE - CO2 29 mmol/L (21-32); CHLORIDE 102 mmol/L (101-111); CREATININE 0.7 mg/dL (0.6-1.3); GFR - MDRD 97 (>89); GLUCOSE 90 mg/dL (74-104); LIPASE 17 U/L (11-82); SODIUM 136 mmol/L (135-145); TOTAL PROTEIN 6.9 g/dL (6.4-8.9)
[2024-06-24 23:03] LABS: TROPONIN I HIGH SENSITIVITY < 2.3 ng/L (2.3-14.8)
[2024-06-24] MEDS: ONDANSETRON ODT 4 MG TABLET TL STA (23:11)
[2024-06-25 00:01] LABS: B. PARAPERTUSSIS- RESP PCR PAN NOT DETECTED; B. PERTUSSIS- RESP PCR PANEL NOT DETECTED; C. PNEUMONIAE- RESP PCR PANEL NOT DETECTED; CORONAVIRUS 229E-RESP PCR NOT DETECTED; CORONAVIRUS HKU1-RESP PCR NOT DETECTED; CORONAVIRUS NL63-RESP PCR NOT DETECTED; CORONAVIRUS OC43-RESP PCR NOT DETECTED; HUMAN METAPNEUMOVIRUS NOT DETECTED; INFLUENZA A- RESP PCR PANEL NOT DETECTED; INFLUENZA B - RESP PCR PANEL NOT DETECTED; M. PNEUMONIAE- RESP PCR PANEL NOT DETECTED; PARAINFLUENZA VIRUS 1 NOT DETECTED; PARAINFLUENZA VIRUS 2 NOT DETECTED; PARAINFLUENZA VIRUS 3 NOT DETECTED; PARAINFLUENZA VIRUS 4 NOT DETECTED; RHINOVIRUS/ENTEROVIRUS DETECTED; RSV- RESP PCR PANEL NOT DETECTED; SARS-CoV-2 -RESP PCR PANEL NOT DETECTED
--- NOTE | 2024-06-25 01:15 | ED Physician Documentation ---
ED Addendum - Addendum Addendum: 06/25/24 01:14 The patient was signed out to me by Dr. Mancini at change of shift, pending remainder of tests, after presenting to the emergency department with chest pain. The patient had appeared fairly stable on presentation and was low risk. Her workup including CXR, EKG, cardiac enzymes and D-dimer, had been unremarkable, except for respiratory PCR panel showing positive for rhinovirus. The patient was feeling much better and stable for discharge home. We have discussed symptomatic management at home as well as usual indications for follow-up and return. Final impression: 1. Chest pain 2. Pleurisy 3. Viral syndrome Disposition: Discharged home in stable and improved condition. 06/25/24 01:15
== END 2024-06-25 01:19 | disposition home or self-care (01) ==
LOC: ED 21:45
DX: B34.9 Viral infection, unspecified (principal); R07.9 Chest pain, unspecified; R09.1 Pleurisy; Z79.899 Other long term (current) drug therapy
CPT/HCPCS: 36415; 71045; 80053; 83690; 84484; 85025; 85379; 87633; 93005; 99283; 99284; Q0162